=== PATIENT | female | born 1990 | race Caucasian/White ===

== ENCOUNTER → 2016-11-04 | Outpatient (CLI) | payer OTHER | LOC: MW.CHOBGYN 13:19 | PROVIDERS: ATTEND Nurse Practitioner Women's Health | DX: N94.89 Other specified conditions associated with female genital organs and menstrual cycle (principal); Z01.419 Encounter for gynecological examination (general) (routine) without abnormal findings; Z11.3 Encounter for screening for infections with a predominantly sexual mode of transmission | CPT/HCPCS: 36415; 86592; 87389; 87480; 87491; 87510; 87591; 87660; G0145 ==

== ENCOUNTER 2017-06-15 16:06 | Emergency (ER) | payer OTHER ==
--- NOTE | 2017-06-15 16:37 | EDM.PDOC ---
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 Patient does have a history of kidney stones and indicates it feels very similar to that. Patient denies any trauma or any injury there would precipitate this but indicates that she's become progressively uncomfortable the point that she cannot sleep or sit still. ] Review of systems: As per history of present illness and below otherwise all systems reviewed and negative. Past medical history: As per history of present illness and as reviewed below otherwise noncontributory. Surgical history: As per history of present illness and as reviewed below otherwise noncontributory. Social history: No reported history of drug or alcohol abuse. Family history: As per history of present illness and as reviewed below otherwise noncontributory. Physical exam: HEENT: Atraumatic, normocephalic, pupils reactive, negative for conjunctival pallor or scleral icterus, mucous membranes moist, throat clear, neck supple, nontender, trachea midline. Lungs: Clear to auscultation, breath sounds equal bilaterally, chest nontender. Heart: S1S2, regular, negative for clicks, rubs, or JVD. Abdomen: Soft, nondistended, nontender. Negative for masses or hepatosplenomegaly. Negative for costovertebral tenderness. Pelvis: Stable nontender. Genitourinary: Deferred. Rectal: Deferred. Extremities: Atraumatic, negative for cords or calf pain. Neurovascular unremarkable. Neuro: Awake, alert, oriented. Cranial nerves II through XII unremarkable. Cerebellum unremarkable. Motor and sensory unremarkable throughout. Exam nonfocal. UA was clean without any signs of bleeding were consistent for a UTI Diagnostics: [UA, x-ray of lumbar spine] Therapeutics: [] Impression: [Back pain] Plan: [Follow-up with PCP, Norflex] Definitive disposition and diagnosis as appropriate pending reevaluation and review of above. 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 History: Reports: None Musculoskeletal History: Reports: None Neurological History: Reports: Migraines Psychiatric History: Reports: Anxiety, Depression Endocrine/Metabolic History: Reports: None Hematologic History: Reports: None Immunologic History: Reports: None Oncologic (Cancer) History: Reports: None Dermatologic History: Reports: None - Infectious Disease History Infectious Disease History: Reports: Chicken Pox - Past Surgical History Head Surgeries/Procedures: Reports: None HEENT Surgical History: Reports: Tonsillectomy Cardiovascular Surgical History: Reports: None Respiratory Surgical History: Reports: None GI Surgical History: Reports: None Female Surgical History: Reports: Kidney stone extraction, Lithotripsy/ESWL Endocrine Surgical History: Reports: None Neurological Surgical History: Reports: C-Spine Musculoskeletal Surgical History: Reports: None Oncologic Surgical History: Reports: None Dermatological Surgical History: Reports: None Social & Family History - Family History Family Medical History: Noncontributory - Tobacco Use Smoking Status *Q: Current Every Day Smoker Years of Tobacco use: 10 Packs/Tins Daily: 0.2 - Caffeine Use Caffeine Use: Reports: Coffee Other Caffeine Use: 1-2 cups daily - Recreational Drug Use Recreational Drug Use: No ED ROS GENERAL - Review of Systems Review Of Systems: See Below (History of present illness) ED EXAM, GENERAL - Physical Exam Exam: See Below (See history of present illness) Course - Vital Signs Last Recorded V/S: Last Vital Signs Temp 36.5 C 06/15/17 16:24 Pulse 101 H 06/15/17 16:24 Resp 18 06/15/17 16:24 BP 165/103 H 06/15/17 16:24 Pulse Ox 99 06/15/17 16:24 - Orders/Labs/Meds Orders: Active Orders 24 hr Category Date Time Status Lumbar Spine 2 or 3V [CR] Stat Exams 06/15/17 17:00 Ordered Labs: Laboratory Tests 06/15/17 06/15/17 Range/Units 16:40 16:40 Urine Color YELLOW Urine Appearance CLEAR Urine pH 5.0 (5.0-8.0) Ur Specific [place] 1.010 (1.001-1.035) Urine Protein NEGATIVE (NEGATIVE) mg/dL Urine Glucose (UA) NEGATIVE (NEGATIVE) mg/dL Urine Ketones NEGATIVE (NEGATIVE) mg/dL Urine Occult Blood NEGATIVE (NEGATIVE) Urine Nitrite NEGATIVE (NEGATIVE) Urine Bilirubin NEGATIVE (NEGATIVE) Urine Urobilinogen 0.2 (<2.0) EU/dL Ur Leukocyte Esterase NEGATIVE (NEGATIVE) Urine RBC 0-1 (0-2/HPF) Urine WBC 0-1 (0-5/HPF) Ur Epithelial Cells FEW (NONE-FEW) Urine Bacteria FEW (NEGATIVE) Urine HCG, Qual NEGATIVE (NEGATIVE) Meds: Medications Discontinued Medications Generic Name Dose Route Start Last Admin Trade Name Lloyd PRN Reason Stop Dose Admin Ketorolac Tromethamine 60 mg 06/15/17 17:00 06/15/17 17:07 Toradol IM 06/15/17 17:01 60 mg ONETIME ONE Administration Departure - Departure Time of Disposition: 18:03 Disposition: Home, Self-Care 01 Condition: Good Clinical Impression: Back pain - Discharge Information Instructions: Back Pain, Adult, [id number] Referrals: Tianna Ellis ARCHITECTURAL SUPERINTENDENT [Primary Care Provider] - Forms: ED Department Discharge Additional Instructions: The following information is given to patients seen in the emergency department who are being discharged to home. This information is to outline your options for follow-up care. We provide all patients seen in our emergency department with a follow-up referral. The need for follow-up, as well as the timing and circumstances, are variable depending upon the specifics of your emergency department visit. If you don't have a primary care physician on staff, we will provide you with a referral. We always advise you to contact your personal physician following an emergency department visit to inform them of the circumstance of the visit and for follow-up with them and/or the need for any referrals to a consulting specialist. The emergency department will also refer you to a specialist when appropriate. This referral assures that you have the opportunity for follow-up care with a specialist. All of these measure are taken in an effort to provide you with optimal care, which includes your follow-up. Under all circumstances we always encourage you to contact your private physician who remains a resource for coordinating your care. When calling for follow-up care, please make the office aware that this follow-up is from your recent emergency room visit. If for any reason you are refused follow-up, please contact the [facility] Emergency Department at and asked to speak to the emergency department charge nurse. Take medication as directed All up with primary care provider as discussed Turn to ED as needed as discussed - My Orders Last 24 Hours: My Active Orders 06/15/17 17:00 Lumbar Spine 2 or 3V [CR] Stat - Assessment/Plan Last 24 Hours: My Active Orders 06/15/17 17:00 Lumbar Spine 2 or 3V [CR] Stat
[2017-06-15] MEDS ORDERED: Ketorolac 60 MG/2 ML SDV IM ONE (17:00)
[2017-06-15 18:36] VITALS: BP 124/87
--- NOTE | 2017-06-16 15:27 | CR ---
EXAM DATE: 06/15/17 PATIENT'S AGE: 26 Patient: LIAM BLEDSOE Facility: [place], [place] : 1990 Study: XRay Spine Lumbar [id number] 5:27:50 PM Ordering Physician: Doctor Hernandez Final Report: Indication: Back pain. Comparison: None available. Technique: Views of lumbar spine. Findings: There are 5 non rib-bearing lumbar type vertebral bodies. Alignment is normal. Vertebral body heights are well maintained. Mildly exaggerated lumbar lordotic curvature. There appears to be mild facet related degenerative change. SI joints are unremarkable. Impression: Vertebral body heights are well maintained and there is no listhesis. Dictated by Miguel Jacob MD @ Jun 15 2017 5:39PM (Electronic Signature) Report Signed by Proxy. GAIL
== END 2017-06-15 18:30 | disposition home or self-care (01) ==
LOC: MW.ED 16:06
DX: M54.5 Low back pain (principal); F17.210 Nicotine dependence, cigarettes, uncomplicated; Z79.899 Other long term (current) drug therapy; Z88.6 Allergy status to analgesic agent
CPT/HCPCS: 72100; 81001; 81025; 96372; 99283; J1885

== ENCOUNTER 2018-01-19 01:41 | Emergency (ER) | payer BC, OTHER ==
--- NOTE | 2018-01-19 01:53 | EDM.PDOC ---
ED HPI GENERAL MEDICAL PROBLEM - General Chief Complaint: Flank Pain Stated Complaint: LOWER BACK PAIN RIGHT SIDE Time Seen by Provider: 01/19/18 01:48 Source of Information: Reports: Patient History Limitations: Reports: No Limitations - History of Present Illness INITIAL COMMENTS - FREE TEXT/NARRATIVE: HISTORY AND PHYSICAL: History of present illness: 27-year-old 6 week female presenting emergency department with chief complaint of right flank pain starting at midnight tonight. Patient states that she was lying down in bed this evening when she began to have some right flank pain. She states it was sharp and lower right rib cage. She does have a history of back issues that she sees a chiropractor for and this may be its etiology however she does have a history of kidney stones as well. Last kidney stone over 2 years ago. She denies any hematuria, fever, chills, dysuria. 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 hopper. She currently denies any chest pain, palpitations, shortness of breath, syncopal episodes, focal neurologic episodes. Review of systems: As per history of present illness and below otherwise all systems reviewed and negative. Past medical history: As per history of present illness and as reviewed below otherwise noncontributory. Surgical history: As per history of present illness and as reviewed below otherwise noncontributory. Social history: No reported history of drug or alcohol abuse. Family history: As per history of present illness and as reviewed below otherwise noncontributory. Physical exam: HEENT: Atraumatic, normocephalic, pupils reactive, negative for conjunctival pallor or scleral icterus, mucous membranes moist, throat clear, neck supple, nontender, trachea midline. Lungs: Clear to auscultation, breath sounds equal bilaterally, chest nontender. Heart: S1S2, regular, negative for clicks, rubs, or JVD. Abdomen: Soft, nondistended, nontender. Negative for masses or hepatosplenomegaly. Negative for costovertebral tenderness. Pelvis: Stable nontender. Genitourinary: Deferred. Rectal: Deferred. Extremities: Atraumatic, negative for cords or calf pain. Neurovascular unremarkable. Neuro: Awake, alert, oriented. Cranial nerves II through XII unremarkable. Cerebellum unremarkable. Motor and sensory unremarkable throughout. Exam nonfocal. Diagnostics: CBC, CMP, UA/UC Therapeutics: [] Impression: Musculoskeletal strain Back pain Plan: CBC, CMP, and UA were unremarkable. Given the patient's history of back pain this is the most likely source. However, I did talk to her about making sure she watches very closely for any increasing symptoms as she has had a stone before. I did not see any hematuria or microscopic blood in her urine. It was negative for infection as well. I instructed her follow-up with her primary care provider Dr. White and return to emergency department if she had any new or worsening symptoms. Agent can take Tylenol as needed for pain. She can also use ice or heat. She was instructed to watch for any fever, chills, dysuria, hematuria, or other signs of systemic infection. 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 Musculoskeletal History: Reports: None Neurological History: Reports: Migraines Psychiatric History: Reports: Anxiety, Depression Endocrine/Metabolic History: Reports: None Hematologic History: Reports: None Immunologic History: Reports: None Oncologic (Cancer) History: Reports: None Dermatologic History: Reports: None - Infectious Disease History Infectious Disease History: Reports: Chicken Pox - Past Surgical History Head Surgeries/Procedures: Reports: None HEENT Surgical History: Reports: Tonsillectomy Cardiovascular Surgical History: Reports: None Respiratory Surgical History: Reports: None GI Surgical History: Reports: None Female Surgical History: Reports: Kidney stone extraction, Lithotripsy/ESWL Endocrine Surgical History: Reports: None Neurological Surgical History: Reports: C-Spine Musculoskeletal Surgical History: Reports: None Oncologic Surgical History: Reports: None Dermatological Surgical History: Reports: None Social & Family History - Family History Family Medical History: Noncontributory - Caffeine Use Caffeine Use: Reports: Coffee Other Caffeine Use: 1-2 cups daily ED ROS GENERAL - Review of Systems Review Of Systems: ROS reveals no pertinent complaints other than HPI. ED EXAM, GENERAL - Physical Exam Exam: See Below Course - Vital Signs Last Recorded V/S: Last Vital Signs Temp 98.6 F 01/19/18 02:00 Pulse 76 01/19/18 02:00 Resp 18 01/19/18 02:00 BP 112/79 01/19/18 02:00 Pulse Ox 100 01/19/18 02:00 - Orders/Labs/Meds Orders: Active Orders 24 hr Category Date Time Status CULTURE URINE [RM] Stat Lab 01/19/18 02:03 Received HCG QUALITATIVE,URINE [URCHEM] Stat Lab 01/19/18 02:03 Ordered Labs: Laboratory Tests 01/19/18 01/19/18 01/19/18 Range/Units 02:03 02:03 02:48 WBC 11.19 H (4.0-11.0) K/uL RBC 4.44 (4.30-5.90) M/uL Hgb 13.5 (12.0-16.0) g/dL Hct 39.2 (36.0-46.0) % MCV 88.3 (80.0-98.0) fL MCH 30.4 (27.0-32.0) pg MCHC 34.4 (31.0-37.0) g/dL RDW Std Deviation 39.7 (28.0-62.0) fl RDW Coeff of Talya 12 (11.0-15.0) % Plt Count 333 (150-400) K/uL MPV 9.40 (7.40-12.00) fL Neut % (Auto) 60.7 (48.0-80.0) % Lymph % (Auto) 30.6 (16.0-40.0) % Jennings % (Auto) 8.0 (0.0-15.0) % Eos % (Auto) 0.5 (0.0-7.0) % Baso % (Auto) 0.2 (0.0-1.5) % Neut # (Auto) 6.8 H (1.4-5.7) K/uL Lymph # (Auto) 3.4 H (0.6-2.4) K/uL Jennings # (Auto) 0.9 H (0.0-0.8) K/uL Eos # (Auto) 0.1 (0.0-0.7) K/uL Baso # (Auto) 0.0 (0.0-0.1) K/uL Nucleated RBC % 0.0 /100WBC Nucleated RBCs # 0 K/uL Sodium (136-145) mmol/L Potassium (3.5-5.1) mmol/L Chloride (98-107) mmol/L Carbon Dioxide (21.0-32.0) mmol/L BUN (7.0-18.0) mg/dL Creatinine (0.6-1.0) mg/dL Est Cr Clr Drug Dosing Estimated GFR (MDRD) ml/min Glucose (74-106) mg/dL Calcium (8.5-10.1) mg/dL Total Bilirubin (0.2-1.0) mg/dL AST (15-37) IU/L ALT (14-63) IU/L Alkaline Phosphatase (46-116) U/L Total Protein (6.4-8.2) g/dL Albumin (3.4-5.0) g/dL Globulin (2.0-3.5) g/dL Albumin/Globulin Ratio (1.3-2.8) Urine Color YELLOW Urine Appearance HAZY Urine pH 5.5 (5.0-8.0) Ur Specific [place] >= 1.030 (1.001-1.035) Urine Protein NEGATIVE (NEGATIVE) mg/dL Urine Glucose (UA) NEGATIVE (NEGATIVE) mg/dL Urine Ketones TRACE H (NEGATIVE) mg/dL Urine Occult Blood NEGATIVE (NEGATIVE) Urine Nitrite NEGATIVE (NEGATIVE) Urine Bilirubin NEGATIVE (NEGATIVE) Urine Urobilinogen 0.2 (<2.0) EU/dL Ur Leukocyte Esterase NEGATIVE (NEGATIVE) Urine RBC 1-2 (0-2/HPF) Urine WBC 4-6 (0-5/HPF) Ur Epithelial Cells MANY (NONE-FEW) Urine Bacteria 2+ H (NEGATIVE) Urine HCG, Qual POSITIVE (NEGATIVE) 01/19/18 Range/Units 02:48 WBC (4.0-11.0) K/uL RBC (4.30-5.90) M/uL Hgb (12.0-16.0) g/dL Hct (36.0-46.0) % MCV (80.0-98.0) fL MCH (27.0-32.0) pg MCHC (31.0-37.0) g/dL RDW Std Deviation (28.0-62.0) fl RDW Coeff of Talya (11.0-15.0) % Plt Count (150-400) K/uL MPV (7.40-12.00) fL Neut % (Auto) (48.0-80.0) % Lymph % (Auto) (16.0-40.0) % [place] % (Auto) (0.0-15.0) % Eos % (Auto) (0.0-7.0) % Baso % (Auto) (0.0-1.5) % Neut # (Auto) (1.4-5.7) K/uL Lymph # (Auto) (0.6-2.4) K/uL Jennings # (Auto) (0.0-0.8) K/uL Eos # (Auto) (0.0-0.7) K/uL Baso # (Auto) (0.0-0.1) K/uL Nucleated RBC % /100WBC Nucleated RBCs # K/uL Sodium 137 (136-145) mmol/L Potassium 3.8 (3.5-5.1) mmol/L Chloride 104 (98-107) mmol/L Carbon Dioxide 23.8 (21.0-32.0) mmol/L BUN 11 (7.0-18.0) mg/dL Creatinine 0.8 (0.6-1.0) mg/dL Est Cr Clr Drug Dosing TNP Estimated GFR (MDRD) > 60.0 ml/min Glucose 91 (74-106) mg/dL Calcium 9.2 (8.5-10.1) mg/dL Total Bilirubin 0.6 (0.2-1.0) mg/dL AST 13 L (15-37) IU/L ALT 34 (14-63) IU/L Alkaline Phosphatase 42 L (46-116) U/L Total Protein 6.5 (6.4-8.2) g/dL Albumin 3.7 (3.4-5.0) g/dL Globulin 2.8 (2.0-3.5) g/dL Albumin/Globulin Ratio 1.3 (1.3-2.8) Urine Color Urine Appearance Urine pH (5.0-8.0) Ur Specific [place] (1.001-1.035) Urine Protein (NEGATIVE) mg/dL Urine Glucose (UA) (NEGATIVE) mg/dL Urine Ketones (NEGATIVE) mg/dL Urine Occult Blood (NEGATIVE) Urine Nitrite (NEGATIVE) Urine Bilirubin (NEGATIVE) Urine Urobilinogen (<2.0) EU/dL Ur Leukocyte Esterase (NEGATIVE) Urine RBC (0-2/HPF) Urine WBC (0-5/HPF) Ur Epithelial Cells (NONE-FEW) Urine Bacteria (NEGATIVE) Urine HCG, Qual (NEGATIVE) Departure - Departure Time of Disposition: 03:16 Disposition: Home, Self-Care 01 Condition: Good Clinical Impression: Back pain affecting in first trimester - Discharge Information Referrals: Tianna Ellis PIANO MAKER [Primary Care Provider] - Forms: ED Department Discharge Additional Instructions: My general discharge The following information is given to patients seen in the emergency department who are being discharged to home. This information is to outline your options for follow-up care. We provide all patients seen in our emergency department with a follow-up referral. The need for follow-up, as well as the timing and circumstances, are variable depending upon the specifics of your emergency department visit. If you don't have a primary care physician on staff, we will provide you with a referral. We always advise you to contact your personal physician following an emergency department visit to inform them of the circumstance of the visit and for follow-up with them and/or the need for any referrals to a consulting specialist. The emergency department will also refer you to a specialist when appropriate. This referral assures that you have the opportunity for follow-up care with a specialist. All of these measure are taken in an effort to provide you with optimal care, which includes your follow-up. Under all circumstances we always encourage you to contact your private physician who remains a resource for coordinating your care. When calling for follow-up care, please make the office aware that this follow-up is from your recent emergency room visit. If for any reason you are refused follow-up, please contact the [facility] Emergency Department at and asked to speak to the emergency department charge nurse. [facility] [address] [place] [id number] [facility] [address] [place] [address] [facility] [address], [place] [address] Follow-up with your primary care provider. May take Tylenol as needed for pain. Return emergency department if you have any new or worsening symptoms including but not limited to fever, chills, nausea, vomiting, hematuria, dysuria, increasing pain. - My Orders Last 24 Hours: My Active Orders 01/19/18 02:03 CULTURE URINE [RM] Stat HCG QUALITATIVE,URINE [URCHEM] Stat - Assessment/Plan Last 24 Hours: My Active Orders 01/19/18 02:03 CULTURE URINE [RM] Stat HCG QUALITATIVE,URINE [URCHEM] Stat
[2018-01-19 03:11] LABS: CHLORIDE,CL 104 mmol/L (98-107); SODIUM,NA 137 mmol/L (136-145)
[2018-01-19 03:21] VITALS: BP 117/64
== END 2018-01-19 03:25 | disposition home or self-care (01) ==
LOC: MW.ED 01:41
DX: O99.89 Other specified diseases and conditions complicating pregnancy, childbirth and the puerperium (principal); S29.011A Strain of muscle and tendon of front wall of thorax, initial encounter; M54.9 Dorsalgia, unspecified; O99.341 Other mental disorders complicating pregnancy, first trimester; F32.9 Major depressive disorder, single episode, unspecified; Z3A.01 Less than 8 weeks gestation of pregnancy; Z88.6 Allergy status to analgesic agent; Z79.899 Other long term (current) drug therapy; X58.XXXA Exposure to other specified factors, initial encounter
CPT/HCPCS: 36415; 80053; 81001; 81025; 85025; 87086; 99284

== ENCOUNTER 2018-09-01 01:50 | Inpatient (IN) | payer BC ==
[2018-09-01] MEDS ORDERED: Tranexamic Acid 1,000 MG in Sodium Chloride 0.9% 100 ML IV PRN (02:48)
[2018-09-01] MEDS ORDERED: Sodium Chloride 0.9% 2.5 ML Syringe FLUSH PRN (02:48)
[2018-09-01] MEDS ORDERED: Misoprostol 200 MCG Tab PO PRN (02:48)
[2018-09-01] MEDS ORDERED: Sodium Chloride 0.9% 10 ML Syringe FLUSH PRN (02:48)
[2018-09-01] MEDS ORDERED: Lidocaine 1% 50 ML MDV INJECT PRN (02:48)
[2018-09-01] MEDS ORDERED: Carboprost Tromethamine 250 MCG/1 ML Amp IM PRN (02:48)
[2018-09-01] MEDS ORDERED: Water For Irrigation,Sterile 1,000 ML Container IRR PRN (02:48)
[2018-09-01] MEDS ORDERED: Methylergonovine 0.2 MG/1 ML Amp IM PRN (02:48)
[2018-09-01] MEDS ORDERED: Nalbuphine 10 MG/1 ML Vial IVPUSH PRN ×2 (02:48→23:54)
[2018-09-01] MEDS ORDERED: Oxytocin/0.9 % Sodium Chloride 30 UNIT/500 ML BAG IV SCH ×2 (03:00→12:15)
[2018-09-01] MEDS: Butorphanol 1 MG/ML SDV IVPUSH PRN ×2 (06:29→07:57)
[2018-09-01] MEDS: Lactated Ringers 1,000 ML IV SCH ×3 (08:55→23:12)
[2018-09-01] MEDS ORDERED: fentaNYL 100 MCG/2 ML SDV ONE ×2 (09:05→19:13)
[2018-09-01] MEDS ORDERED: Ropivacaine 0.2% 2 MG/ML 20 ML SDV ONE (09:07)
[2018-09-01] MEDS ORDERED: Ropivacaine HCl/PF 100 ML ONE ×2 (09:07→19:14)
--- NOTE | 2018-09-01 11:16 | PCM.PREANE ---
Preanesthetic Assessment - Anesthesia/Transfusion/Family Hx Anesthesia History: Prior Anesthesia Without Reaction Family History of Anesthesia Reaction: No Transfusion History: No Prior Transfusion(s) - Review of Systems General: No Symptoms Pulmonary: No Symptoms Cardiovascular: No Symptoms Gastrointestinal: No Symptoms Neurological: No Symptoms Other: Reports: None (Denies any personal or family history of bleeding or clotting problems) - Physical Assessment Height: 1.57 m Weight: 101.151 kg ASA Class: 2 Mental Status: Alert & Oriented x3 Airway Class: Mallampati = 2 Dentition: Reports: Normal Dentition ROM/Head Extension: Full - Lab Values: Laboratory Last Values WBC 16.24 K/uL (4.0-11.0) H 09/01/18 03:03 RBC 4.06 M/uL (4.30-5.90) L 09/01/18 03:03 Hgb 11.9 g/dL (12.0-16.0) L 09/01/18 03:03 Hct 36.2 % (36.0-46.0) 09/01/18 03:03 MCV 89.2 fL (80.0-98.0) 09/01/18 03:03 MCH 29.3 pg (27.0-32.0) 09/01/18 03:03 MCHC 32.9 g/dL (31.0-37.0) 09/01/18 03:03 RDW Std Deviation 42.0 fl (28.0-62.0) 09/01/18 03:03 RDW Coeff of Talya 13 % (11.0-15.0) 09/01/18 03:03 Plt Count 336 K/uL (150-400) 09/01/18 03:03 MPV 10.30 fL (7.40-12.00) 09/01/18 03:03 Blood Type A NEGATIVE 09/01/18 03:03 Antibody Screen NEGATIVE 09/01/18 03:03 - Allergies Allergies/Adverse Reactions: Allergies Allergy/AdvReac Type Severity Reaction Status Date / Time aspirin Allergy Vomiting Verified 06/15/17 16:24 - Acknowledgements Anesthesia Type Planned: Epidural Pt an Appropriate Candidate for the Planned Anesthesia: Yes Alternatives and Risks of Anesthesia Discussed w Pt/Guardian: Yes Pt/Guardian Understands and Agrees with Anesthesia Plan: Yes PreAnesthesia Questionnaire HEENT History: Reports: Impaired Vision Cardiovascular History: Reports: None Respiratory History: Reports: Asthma Gastrointestinal History: Reports: None Genitourinary History: Reports: Renal Calculus HAND MIXER History: Reports: Musculoskeletal History: Reports: Back Pain, Chronic Neurological History: Reports: Migraines Psychiatric History: Reports: Anxiety, Depression, OCD, Panic Attack Endocrine/Metabolic History: Reports: None Hematologic History: Reports: None Immunologic History: Reports: None Oncologic (Cancer) History: Reports: None Dermatologic History: Reports: None - Infectious Disease History Infectious Disease History: Reports: Herpes - Past Surgical History Head Surgeries/Procedures: Reports: None HEENT Surgical History: Reports: Adenoidectomy, Myringotomy w Tube(s), Tonsillectomy Cardiovascular Surgical History: Reports: None Respiratory Surgical History: Reports: None GI Surgical History: Reports: None Female Surgical History: Reports: Kidney stone extraction, Lithotripsy/ESWL Endocrine Surgical History: Reports: None Neurological Surgical History: Reports: C-Spine Musculoskeletal Surgical History: Reports: None Oncologic Surgical History: Reports: None Dermatological Surgical History: Reports: None - SUBSTANCE USE Smoking Status *Q: Former Smoker Tobacco Use Within Last Twelve Months: Cigarettes Second Hand Smoke Exposure: No Recreational Drug Use History: No - HOME MEDS Home Medications: Home Meds Escitalopram [Lexapro] 20 mg PO DAILY 10/06/16 [History] Prazosin HCl [Prazosin] 2 mg PO BEDTIME 10/06/16 [History] - CURRENT (IN HOUSE) MEDS Current Meds: Current Medications Butorphanol Tartrate (Stadol) 1 mg IVPUSH Q1H PRN PRN Reason: Pain Last Admin: 09/01/18 07:57 Dose: 1 mg Carboprost Tromethamine (Hemabate Ds) 250 mcg IM ASDIRECTED PRN PRN Reason: Post Hemorrhage Tranexamic Acid 1,000 mg/ (Sodium Chloride) 110 mls @ 660 mls/hr IV ONETIME PRN PRN Reason: Bleeding Lactated Ringer's (Ringers, Lactated) 1,000 mls @ 150 mls/hr IV ASDIRECTED ORTEGA Oxytocin/Sodium Chloride (Oxytocin 30 Unit/500 Ml-Ns) 30 unit in 500 mls @ 999 mls/hr IV TITRATE ORTEGA Lidocaine HCl (Xylocaine 1%) 50 ml INJECT ONETIME PRN PRN Reason: Laceration repair Methylergonovine Maleate (Methergine) 0.2 mg IM ASDIRECTED PRN PRN Reason: Post Hemorrhage Misoprostol (Cytotec) 200 mcg PO ONETIME PRN PRN Reason: Post Hemorrhage Nalbuphine HCl (Nubain) 10 mg IVPUSH Q1H PRN PRN Reason: Pain (severe 7-10) Sodium Chloride (Saline Flush) 10 ml FLUSH ASDIRECTED PRN PRN Reason: Keep Vein Open Sodium Chloride (Saline Flush) 2.5 ml FLUSH ASDIRECTED PRN PRN Reason: Keep Vein Open Sterile Water (Sterile Water For Irrigation) 1,000 ml IRR ASDIRECTED PRN PRN Reason: delivery Discontinued Medications Fentanyl (Sublimaze) Confirm Administered Dose 300 mcg .ROUTE .STK-MED ONE Stop: 09/01/18 09:06 Ropivacaine (Naropin 0.2%) Confirm Administered Dose 100 mls @ as directed .ROUTE .STK-MED ONE Stop: 09/01/18 09:08 Ropivacaine (Naropin 0.2%) Confirm Administered Dose 20 ml .ROUTE .STK-MED ONE Stop: 09/01/18 09:08
[2018-09-01] MEDS ORDERED: Terbutaline 1 MG/ML SDV SUBCUT PRN (12:14)
[2018-09-01] MEDS ORDERED: Acetaminophen 500 MG Tab PO ONE ×2 (15:34→19:12)
[2018-09-01] MEDS ORDERED: Ondansetron 4 MG/2 ML SDV IVPUSH ONE (19:12)
[2018-09-01] MEDS ORDERED: hydrOXYzine Pamoate 25 MG Cap PO ONE (19:30)
[2018-09-01] MEDS ORDERED: Citric Acid/Sodium Citrate Solution 30 ML Cup PO ONE (20:51)
[2018-09-01] MEDS ORDERED: ceFAZolin 2 GM in Premix Bag 1 BAG IV ONE (22:57)
[2018-09-01] MEDS ORDERED: Azithromycin 500 MG in Sodium Chloride 0.9% 250 ML IV ONE (22:57)
--- NOTE | 2018-09-01 23:05 | PCM.SN ---
- Free Text/Narrative Note: 22:45 Called in to evaluate "air in line" message on epidural pump. On arrival , patient in lithotomy position pushing and has been pushing for a couple of hours. The epidural catheter was pulled out of the clip and laying in the bed so the epidural catheter was discontinued with the tip intact.
[2018-09-01] MEDS ORDERED: Morphine PF 10 MG/10 ML SDV ONE (23:10)
[2018-09-01] MEDS ORDERED: Phenylephrine/Normal Saline 100 MCG/ML 10 ML Syringe ONE (23:12)
[2018-09-01] MEDS ORDERED: Oxytocin 10 Units/1 ML SDV ONE ×2 (23:12→23:53)
[2018-09-01] MEDS ORDERED: ceFAZolin/Dextrose,Iso-Osmotic 2 GM/50 ML Duplex Bag IV ONE (23:26)
[2018-09-01] MEDS ORDERED: Ondansetron 4 MG/2 ML SDV ONE (23:53)
[2018-09-01] MEDS ORDERED: fentaNYL 100 MCG/2 ML SDV IVPUSH PRN (23:54)
[2018-09-01] MEDS ORDERED: HYDROmorphone 2 MG/ML SDV IVPUSH ONE (23:54)
[2018-09-02] MEDS ORDERED: Midazolam 1 MG/ML 2 ML SDV ONE (00:11)
[2018-09-02] MEDS ORDERED: Octyl 2-Cyanoacrylate 1 Tube ONE (00:14)
--- NOTE | 2018-09-02 00:32 | PCM.OPNOTE ---
- General Post-Op/Procedure Note Date of Surgery/Procedure: 09/02/18 Operative Procedure(s): primary low transverse Findings: Liveborn male 8/9 weight 3950 grams, LOT Normal appearing uterus, tubes and ovaries. Pre Op Diagnosis: 38 5/7 weeks, labor, arrest of descent. Post-Op Diagnosis: Same Anesthesia Technique: Spinal Primary Surgeon: Venus Arellano Anesthesia Provider: Thierry Vigil Hvac Controls Technician: Blanche Babcock Pathology: none Fluid Replacement, Intraop: 700 EBL in mLs: 600 Complications: None known Condition: Good
[2018-09-02] MEDS ORDERED: Temazepam 15 MG Cap PO PRN (00:34)
[2018-09-02] MEDS ORDERED: Bisacodyl 10 MG Supp RECTAL PRN (00:34)
[2018-09-02] MEDS ORDERED: Acetaminophen/oxyCODONE 325-5 MG Tab PO PRN ×2 (00:34)
[2018-09-02] MEDS ORDERED: Lanolin 100% Cream 7 GM Tube TOP PRN (00:34)
[2018-09-02] MEDS ORDERED: Ondansetron 4 MG/2 ML SDV IVPUSH PRN (00:34)
[2018-09-02] MEDS ORDERED: diphenhydrAMINE 50 MG/ML SDV IVPUSH PRN (00:34)
[2018-09-02] MEDS ORDERED: Famotidine 20 MG Tab PO PRN (00:34)
[2018-09-02] MEDS ORDERED: Misoprostol 200 MCG Tab RECTAL PRN (00:34)
[2018-09-02] MEDS ORDERED: Simethicone 80 MG Tab.Chew PO PRN (00:34)
[2018-09-02] MEDS ORDERED: Lactated Ringers 1,000 ML IV SCH (00:45)
[2018-09-02] MEDS: Ketorolac 30 MG/ML SDV IVPUSH SCH ×4 (00:53→18:39)
--- NOTE | 2018-09-02 01:02 | PCM48HPAN ---
Post Anesthesia Note - EVALUATION WITHIN 48HRS OF ANESTHETIC Vital Signs in Normal Range: Yes Patient Participated in Evaluation: Yes Respiratory Function Stable: Yes Airway Patent: Yes Cardiovascular Function Stable: Yes Hydration Status Stable: Yes Pain Control Satisfactory: Yes Nausea and Vomiting Control Satisfactory: Yes Mental Status Recovered: Yes Resp Rate: 21
--- NOTE | 2018-09-02 06:34 | OR ---
SURGEON: Venus Arellano M.D. DATE OF PROCEDURE: 09/02/2018 PREOPERATIVE DIAGNOSES: 1. A 38 and 5/7 weeks' intrauterine . 2. Active labor. 3. Arrest of descent. POSTOPERATIVE DIAGNOSES: 1. A 38 and 5/7 weeks' intrauterine . 2. Active labor. 3. Arrest of descent. PROCEDURE: Primary low-transverse section. ANESTHESIA: Spinal. FLUIDS: 700 mL crystalloid. ESTIMATED BLOOD LOSS: 600 mL. FINDINGS: Liveborn male. scores 8 and 9, weighing 3950 g. Left occiput transverse position. Normal-appearing uterus, tubes, and ovaries. COMPLICATIONS: None known. DISPOSITION: Stable to recovery. BRIEF HISTORY: This is a 27-year-old female. She is G1, P0. She presents in active spontaneous labor, 38 and 5/7 weeks' gestation, 3 cm, 90%, -2 station. Artificial rupture of membranes was performed. She does have a history of HSV. She had a negative white light exam and also is on Valtrex in the third trimester. She is known to be large for gestational age with estimated weight of 3900 g. She is group B strep negative. Throughout labor, she had primarily category I heart tones with brief episodes of marked variability and occasional decelerations. She required augmentation with Pitocin. She progressed to complete. She pushed for 3 hours. When she began pushing, she was at +1 station with caput, and after 3 hours of pushing, she was still at +1 station, left occiput transverse position with caput. I gave her option of further pushing as heart tones were normal and she was afebrile versus proceeding with . I did not recommend proceeding with a vacuum due to suspected macrosomia. After discussing risks and benefits of each, she desires to proceed with a primary low transverse section with risks discussed including bleeding, infection, injury to bowel, bladder, blood vessels, ureters, or other organs, risk of thromboembolic event, risk of anesthesia. Understanding all these risks, she does desire to proceed. DESCRIPTION OF PROCEDURE: With the patient in left tilt position, under adequate spinal analgesia, the abdomen was prepped with chlorhexidine and draped in the usual fashion for abdominal surgery. SCDs were in place. Chand catheter had been placed, and she received 500 mg of azithromycin and 2 g of Ancef IV. After documentation of adequate analgesia with the abdomen appropriately draped after an appropriate time-out was held, a transverse curvilinear incision was made 2 cm cephalad from the pubic symphysis and carried through the subcutaneous tissue to the fascia which was scored transversely in the midline. The fascial incision was extended laterally using curved Skaggs scissors. The fascia was elevated from the underlying rectus muscle using sharp and blunt dissection. The rectus muscles were bluntly in the midline. The peritoneum was entered with a finger, and the incision was extended using blunt dissection. The Nura O C- section retractor was placed. The visceroperitoneum over the lower uterine segment was incised. Transverse curvilinear incision was made with a scalpel over the lower uterine segment. The uterine incision was extended using cephalad and caudad pressure. The head was elevated from the pelvis and delivered via the uterine incision. The infant was DeLee suctioned as meconium was noted at the time of rupture of membranes in the morning and indeed there was meconium-stained amniotic fluid. Following suctioning, the 's shoulders and body were delivered. The cord was clamped x2 and cut, and the was handed to Dr. Phelps who was present at delivery. The was a liveborn male, scores 8 and 9, weighing 3950 g. Cord blood was collected for cord ABGs as well as routine cord blood sampling. The placenta was removed by manual extraction. Pitocin was initiated after delivery of the to assist with contraction of the uterus. The uterus was cleaned with a dry laparotomy tape. The uterine incision was closed with a running lock suture of 0 Polysorb. The apex of an inferior extension of the incision on the right side was incorporated into the closure, and an imbricating layer over the incision was performed. All using 0 Polysorb. The posterior cul-de-sac paracolic gutters were irrigated and cleaned. The uterine incision was inspected and was hemostatic. Therefore, the Nura O retractor was removed. A final inspection revealed complete hemostasis. The rectus muscle and peritoneum were loosely approximated in the midline using a running mattress suture of 0 Polysorb. The posterior aspect of the fascia was inspected and areas of bleeding that were noted were cauterized. The fascial incision was closed with a running suture of 0 Polysorb. Subcutaneous tissue was irrigated. Any areas of bleeding that were noted were cauterized. The deep subcutaneous tissue was reapproximated with a running suture of 3-0 plain. The skin was reapproximated with a running subcuticular suture of 3-0 Monocryl followed by Dermabond. After closure of the incision, a speculum was placed in the vagina due to the extension down toward the cervix to ensure that this has not had extended into the cervix or the vagina. Inspection and palpation revealed no active bleeding, and palpation revealed no extension onto the cervix. Final sponge, needle, and instrument counts were reported as correct. There were no known complications. The patient was transferred to recovery in good condition. FABIOLA / CHAZ /[id number]
[2018-09-02] MEDS: Docusate Sodium 100 MG Cap PO SCH (08:40)
--- NOTE | 2018-09-02 09:37 | PCM48HPAN ---
Post Anesthesia Note - EVALUATION WITHIN 48HRS OF ANESTHETIC Vital Signs in Normal Range: Yes Patient Participated in Evaluation: Yes Respiratory Function Stable: Yes Airway Patent: Yes Cardiovascular Function Stable: Yes Hydration Status Stable: Yes Pain Control Satisfactory: Yes Nausea and Vomiting Control Satisfactory: Yes Mental Status Recovered: Yes Resp Rate: 16 - COMMENTS/OBSERVATIONS Free Text/Narrative:: Denies any complaints at this time.
--- NOTE | 2018-09-02 09:38 | PCM.POSTAN ---
POST ANESTHESIA ASSESSMENT - MENTAL STATUS Mental Status: Alert, Oriented - RESPIRATORY Respiratory Status: Respiratory Rate WNL, Airway Patent, O2 Saturation Stable - CARDIOVASCULAR CV Status: Pulse Rate WNL, Blood Pressure Stable - GASTROINTESTINAL GI Status: No Symptoms - POST OP HYDRATION Hydration Status: Adequate & Stable
[2018-09-03] MEDS: Ketorolac 30 MG/ML SDV IVPUSH SCH (00:49)
--- NOTE | 2018-09-03 08:01 | PCM.PNPP ---
- General Info Date of Service: 09/03/18 Functional Status: Reports: Pain Controlled, Tolerating Diet, Ambulating, Urinating - Review of Systems General: Denies: Fever, Fatigue, Chills HEENT: Denies: Headaches Pulmonary: Denies: Shortness of Breath, Pleuritic Chest Pain Cardiovascular: Denies: Chest Pain, Palpitations, Dyspnea on Exertion Gastrointestinal: Denies: Abdominal Pain Genitourinary: Denies: Burning, Incontinence, Flank Pain Psychiatric: Denies: Depression, Mood Lability, Anxiety - General Info Date of Service: 09/03/18 - Patient Data Vital Signs - Most Recent: Last Vital Signs Temp 36.5 C 09/03/18 04:20 Pulse 87 09/03/18 04:20 Resp 15 09/03/18 04:20 BP 96/55 L 09/03/18 04:20 Pulse Ox 98 09/03/18 04:20 Weight - Most Recent: 223 lb I&O - Last 24 Hours: Intake & Output 09/02/18 09/03/18 09/03/18 22:59 06:59 14:59 Output Total 2400 Balance -2400 Lab Results - Last 24 Hours: Laboratory Results - last 24 hr 09/03/18 Range/Units 05:47 Hgb 8.7 L (12.0-16.0) g/dL Hct 27.1 L (36.0-46.0) % Med Orders - Current: Current Medications Bisacodyl (Dulcolax) 10 mg RECTAL ONETIME PRN PRN Reason: Constipation Diphenhydramine HCl (Benadryl) 25 mg IVPUSH Q6H PRN PRN Reason: Itching or Nausea Docusate Sodium (Colace) 100 mg PO BID [facility] Last Admin: 09/02/18 08:40 Dose: 100 mg Emollient Ointment (Lansinoh Hpa) 0 gm TOP ASDIRECTED PRN PRN Reason: Sore Nipples Famotidine (Pepcid) 20 mg PO BID PRN PRN Reason: Heartburn Lactated Ringer's (Ringers, Lactated) 1,000 mls @ 125 mls/hr IV ASDIRECTED [facility] Last Admin: 09/02/18 02:43 Dose: 125 mls/hr Ibuprofen (Motrin) 800 mg PO Q8H PRN PRN Reason: mild pain or fever Misoprostol (Cytotec) 1,000 mcg RECTAL ONETIME PRN PRN Reason: excessive bleeding Nalbuphine HCl (Nubain) 10 mg IVPUSH Q1H PRN PRN Reason: Pain (severe 7-10) Ondansetron HCl (Zofran) 4 mg IVPUSH Q4H PRN PRN Reason: Nausea/Vomiting Oxycodone/Acetaminophen (Percocet 325-5 Mg) 1 tab PO Q4H PRN PRN Reason: Pain (moderate 4-6) Oxycodone/Acetaminophen (Percocet 325-5 Mg) 2 tab PO Q4H PRN PRN Reason: Pain (moderate 4-6) Simethicone (Simethicone) 80 mg PO Q4H PRN PRN Reason: Gas Temazepam (Restoril) 15 mg PO BEDTIME PRN PRN Reason: Insomnia Discontinued Medications Acetaminophen (Tylenol Extra Strength) 1,000 mg PO ONETIME ONE Stop: 09/01/18 15:35 Last Admin: 09/01/18 15:57 Dose: 1,000 mg Acetaminophen (Tylenol Extra Strength) 1,000 mg PO ONETIME ONE Stop: 09/02/18 00:32 Last Admin: 09/02/18 07:21 Dose: Not Given Butorphanol Tartrate (Stadol) 1 mg IVPUSH Q1H PRN PRN Reason: Pain Last Admin: 09/01/18 07:57 Dose: 1 mg Carboprost Tromethamine (Hemabate Ds) 250 mcg IM ASDIRECTED PRN PRN Reason: Post Hemorrhage Cefazolin Sodium/Dextrose (Ancef) Confirm Administered Dose 2 gm IV .STK-MED ONE Stop: 09/01/18 23:27 Citric Acid/Sodium Citrate (Bicitra Solution) 30 ml PO ONETIME ONE Stop: 09/01/18 20:52 Last Admin: 09/01/18 21:01 Dose: 30 ml Fentanyl (Sublimaze) Confirm Administered Dose 300 mcg .ROUTE .STK-MED ONE Stop: 09/01/18 09:06 Last Admin: 09/02/18 07:20 Dose: Not Given Fentanyl (Sublimaze) Confirm Administered Dose 200 mcg .ROUTE .STK-MED ONE Stop: 09/01/18 19:14 Last Admin: 09/02/18 07:21 Dose: Not Given Fentanyl (Sublimaze) 50 mcg IVPUSH Q5M PRN PRN Reason: Pain (severe 7-10) Stop: 09/02/18 23:54 Hydromorphone HCl (Dilaudid) 2 mg IVPUSH ONETIME ONE Stop: 09/01/18 23:55 Last Admin: 09/02/18 07:21 Dose: Not Given Hydroxyzine Pamoate (Vistaril) 25 mg PO ONETIME ONE Stop: 09/01/18 19:31 Last Admin: 09/01/18 19:38 Dose: 25 mg Tranexamic Acid 1,000 mg/ (Sodium Chloride) 110 mls @ 660 mls/hr IV ONETIME PRN PRN Reason: Bleeding Lactated Ringer's (Ringers, Lactated) 1,000 mls @ 150 mls/hr IV ASDIRECTED [facility] Last Admin: 09/01/18 23:12 Dose: 999 mls/hr Oxytocin/Sodium Chloride (Oxytocin 30 Unit/500 Ml-Ns) 30 unit in 500 mls @ 999 mls/hr IV TITRATE ORTEGA Ropivacaine (Naropin 0.2%) Confirm Administered Dose 100 mls @ as directed .ROUTE .STK-MED ONE Stop: 09/01/18 09:08 Last Admin: 09/02/18 07:20 Dose: Not Given Oxytocin/Sodium Chloride (Oxytocin 30 Unit/500 Ml-Ns) 30 unit in 500 mls @ 2 mls/hr IV TITRATE ORTEGA; Protocol Last Titration: 09/01/18 22:49 Dose: 0 munits/min, 0 mls/hr Ropivacaine (Naropin 0.2%) Confirm Administered Dose 100 mls @ as directed .ROUTE .STK-MED ONE Stop: 09/01/18 19:15 Last Admin: 09/02/18 07:21 Dose: Not Given Azithromycin 500 mg/ Sodium (Chloride) 250 mls @ 250 mls/hr IV ONETIME ONE Stop: 09/01/18 23:56 Last Admin: 09/01/18 23:10 Dose: 250 mls/hr Cefazolin Sodium/Dextrose 2 gm (/ Premix) 50 mls @ 100 mls/hr IV ONETIME ONE Stop: 09/01/18 23:26 Ketorolac Tromethamine (Toradol) 30 mg IVPUSH Q6H [facility] Stop: 09/03/18 00:46 Last Admin: 09/03/18 00:49 Dose: 30 mg Lidocaine HCl (Xylocaine 1%) 50 ml INJECT ONETIME PRN PRN Reason: Laceration repair Methylergonovine Maleate (Methergine) 0.2 mg IM ASDIRECTED PRN PRN Reason: Post Hemorrhage Midazolam HCl (Versed 1 Mg/Ml) Confirm Administered Dose 2 mg .ROUTE .STK-MED ONE Stop: 09/02/18 00:12 Misoprostol (Cytotec) 200 mcg PO ONETIME PRN PRN Reason: Post Hemorrhage Morphine Sulfate (Duramorph Pf) Confirm Administered Dose 10 mg .ROUTE .STK-MED ONE Stop: 09/01/18 23:11 Nalbuphine HCl (Nubain) 2.5 mg IVPUSH Q3H PRN PRN Reason: Pruritis Stop: 09/02/18 23:55 Octyl Cyanoacrylate (Dermabond Advance) Confirm Administered Dose 1 applic .ROUTE .ST-MED ONE Stop: 09/02/18 00:15 Ondansetron HCl (Zofran) 4 mg IVPUSH ONETIME ONE Stop: 09/01/18 19:13 Last Admin: 09/01/18 19:22 Dose: 4 mg Ondansetron HCl (Zofran) Confirm Administered Dose 4 mg .ROUTE .STK-MED ONE Stop: 09/01/18 23:54 Oxytocin (Pitocin) Confirm Administered Dose 20 unit .ROUTE .STK-MED ONE Stop: 09/01/18 23:13 Oxytocin (Pitocin) Confirm Administered Dose 10 unit .ROUTE .STK-MED ONE Stop: 09/01/18 23:54 Phenylephrine HCl (Phenylephrine In Ns 100 Mcg/Ml) Confirm Administered Dose 1 mg .ROUTE .STK-MED ONE Stop: 09/01/18 23:13 Ropivacaine (Naropin 0.2%) Confirm Administered Dose 20 ml .ROUTE .STK-MED ONE Stop: 09/01/18 09:08 Last Admin: 09/02/18 07:20 Dose: Not Given Sodium Chloride (Saline Flush) 10 ml FLUSH ASDIRECTED PRN PRN Reason: Keep Vein Open Sodium Chloride (Saline Flush) 2.5 ml FLUSH ASDIRECTED PRN PRN Reason: Keep Vein Open Sterile Water (Sterile Water For Irrigation) 1,000 ml IRR ASDIRECTED PRN PRN Reason: delivery Terbutaline Sulfate (Brethine) 0.25 mg SUBCUT ASDIRECTED PRN PRN Reason: Tacysystole - Interaction Infant Disposition, : Central in Room with Family Infant Interaction: Holding Infant Feeding: Attempted ; Nursed Fair/Poor, Continues to Breastfeed Support Person: Other (see below) - Recovery Exam Fundal Tone: Firm Fundal Level: 1 Fingerbreadths Below Umbilicus Fundal Placement: Midline Lochia Amount: Scant Lochia Color: Rubra/Red Perineum Description: Intact, Minimal Bruising/Swelling Bladder Status: Voiding Urinary Elimination: Voided - Exam General: Alert, Oriented Neck: Supple Lungs: Clear to Auscultation, Normal Respiratory Effort Cardiovascular: Regular Rate, Regular Rhythm GI/Abdominal Exam: Normal Bowel Sounds Extremities: Non-Tender, Pedal Edema Skin: Warm Wound/Incisions: Healing Well Psy/Mental Status: Alert, Normal Affect, Normal Mood - Problem List & Annotations (1) delivery delivered SNOMED Code(s): 921118757 Code(s): O82 - ENCOUNTER FOR DELIVERY WITHOUT INDICATION Status: Acute Current Visit: Yes - Problem List Review Problem List Initiated/Reviewed/Updated: Yes - Assessment Assessment:: POD#1 s/p Primary for arrest of descent, stable and afebrile Struggling with breast feeding - Plan Plan:: Continue current care Continue to work on breast feeding and aim on discharge tomorrow
[2018-09-03] MEDS: Docusate Sodium 100 MG Cap PO SCH ×3 (08:09→22:23)
[2018-09-03] MEDS: Ibuprofen 800 MG Tab PO PRN ×2 (09:59→19:51)
[2018-09-04 07:47] VITALS: BP 135/66
--- NOTE | 2018-09-04 07:53 | PCM.PNPP ---
- General Info Date of Service: 09/04/18 Functional Status: Reports: Pain Controlled, Tolerating Diet, Ambulating, Urinating - Review of Systems General: Reports: No Symptoms HEENT: Reports: No Symptoms Pulmonary: Reports: No Symptoms Cardiovascular: Reports: No Symptoms Gastrointestinal: Reports: No Symptoms Genitourinary: Reports: No Symptoms Musculoskeletal: Reports: No Symptoms Skin: Reports: No Symptoms Neurological: Reports: No Symptoms Psychiatric: Reports: No Symptoms - Patient Data Vital Signs - Most Recent: Last Vital Signs Temp 36.8 C 09/04/18 07:20 Pulse 82 09/04/18 07:20 Resp 17 09/04/18 07:20 BP 135/66 09/04/18 07:20 Pulse Ox 97 09/04/18 07:20 Weight - Most Recent: 101.151 kg Med Orders - Current: Current Medications Bisacodyl (Dulcolax) 10 mg RECTAL ONETIME PRN PRN Reason: Constipation Diphenhydramine HCl (Benadryl) 25 mg IVPUSH Q6H PRN PRN Reason: Itching or Nausea Docusate Sodium (Colace) 100 mg PO BID [facility] Last Admin: 09/03/18 22:23 Dose: Not Given Emollient Ointment (Lansinoh Hpa) 0 gm TOP ASDIRECTED PRN PRN Reason: Sore Nipples Famotidine (Pepcid) 20 mg PO BID PRN PRN Reason: Heartburn Lactated Ringer's (Ringers, Lactated) 1,000 mls @ 125 mls/hr IV ASDIRECTED [facility] Last Admin: 09/02/18 02:43 Dose: 125 mls/hr Ibuprofen (Motrin) 800 mg PO Q8H PRN PRN Reason: mild pain or fever Last Admin: 09/03/18 19:51 Dose: 800 mg Misoprostol (Cytotec) 1,000 mcg RECTAL ONETIME PRN PRN Reason: excessive bleeding Nalbuphine HCl (Nubain) 10 mg IVPUSH Q1H PRN PRN Reason: Pain (severe 7-10) Ondansetron HCl (Zofran) 4 mg IVPUSH Q4H PRN PRN Reason: Nausea/Vomiting Oxycodone/Acetaminophen (Percocet 325-5 Mg) 1 tab PO Q4H PRN PRN Reason: Pain (moderate 4-6) Oxycodone/Acetaminophen (Percocet 325-5 Mg) 2 tab PO Q4H PRN PRN Reason: Pain (moderate 4-6) Simethicone (Simethicone) 80 mg PO Q4H PRN PRN Reason: Gas Temazepam (Restoril) 15 mg PO BEDTIME PRN PRN Reason: Insomnia Discontinued Medications Acetaminophen (Tylenol Extra Strength) 1,000 mg PO ONETIME ONE Stop: 09/01/18 15:35 Last Admin: 09/01/18 15:57 Dose: 1,000 mg Acetaminophen (Tylenol Extra Strength) 1,000 mg PO ONETIME ONE Stop: 09/02/18 00:32 Last Admin: 09/02/18 07:21 Dose: Not Given Butorphanol Tartrate (Stadol) 1 mg IVPUSH Q1H PRN PRN Reason: Pain Last Admin: 09/01/18 07:57 Dose: 1 mg Carboprost Tromethamine (Hemabate Ds) 250 mcg IM ASDIRECTED PRN PRN Reason: Post Hemorrhage Cefazolin Sodium/Dextrose (Ancef) Confirm Administered Dose 2 gm IV .STK-MED ONE Stop: 09/01/18 23:27 Citric Acid/Sodium Citrate (Bicitra Solution) 30 ml PO ONETIME ONE Stop: 09/01/18 20:52 Last Admin: 09/01/18 21:01 Dose: 30 ml Fentanyl (Sublimaze) Confirm Administered Dose 300 mcg .ROUTE .STK-MED ONE Stop: 09/01/18 09:06 Last Admin: 09/02/18 07:20 Dose: Not Given Fentanyl (Sublimaze) Confirm Administered Dose 200 mcg .ROUTE .STK-MED ONE Stop: 09/01/18 19:14 Last Admin: 09/02/18 07:21 Dose: Not Given Fentanyl (Sublimaze) 50 mcg IVPUSH Q5M PRN PRN Reason: Pain (severe 7-10) Stop: 09/02/18 23:54 Hydromorphone HCl (Dilaudid) 2 mg IVPUSH ONETIME ONE Stop: 09/01/18 23:55 Last Admin: 09/02/18 07:21 Dose: Not Given Hydroxyzine Pamoate (Vistaril) 25 mg PO ONETIME ONE Stop: 09/01/18 19:31 Last Admin: 09/01/18 19:38 Dose: 25 mg Tranexamic Acid 1,000 mg/ (Sodium Chloride) 110 mls @ 660 mls/hr IV ONETIME PRN PRN Reason: Bleeding Lactated Ringer's (Ringers, Lactated) 1,000 mls @ 150 mls/hr IV ASDIRECTED [facility] Last Admin: 09/01/18 23:12 Dose: 999 mls/hr Oxytocin/Sodium Chloride (Oxytocin 30 Unit/500 Ml-Ns) 30 unit in 500 mls @ 999 mls/hr IV TITRATE [facility] Ropivacaine (Naropin 0.2%) Confirm Administered Dose 100 mls @ as directed .ROUTE .STK-MED ONE Stop: 09/01/18 09:08 Last Admin: 09/02/18 07:20 Dose: Not Given Oxytocin/Sodium Chloride (Oxytocin 30 Unit/500 Ml-Ns) 30 unit in 500 mls @ 2 mls/hr IV TITRATE [facility]; Protocol Last Titration: 09/01/18 22:49 Dose: 0 munits/min, 0 mls/hr Ropivacaine (Naropin 0.2%) Confirm Administered Dose 100 mls @ as directed .ROUTE .STK-MED ONE Stop: 09/01/18 19:15 Last Admin: 09/02/18 07:21 Dose: Not Given Azithromycin 500 mg/ Sodium (Chloride) 250 mls @ 250 mls/hr IV ONETIME ONE Stop: 09/01/18 23:56 Last Admin: 09/01/18 23:10 Dose: 250 mls/hr Cefazolin Sodium/Dextrose 2 gm (/ Premix) 50 mls @ 100 mls/hr IV ONETIME ONE Stop: 09/01/18 23:26 Ketorolac Tromethamine (Toradol) 30 mg IVPUSH Q6H [facility] Stop: 09/03/18 00:46 Last Admin: 09/03/18 00:49 Dose: 30 mg Lidocaine HCl (Xylocaine 1%) 50 ml INJECT ONETIME PRN PRN Reason: Laceration repair Methylergonovine Maleate (Methergine) 0.2 mg IM ASDIRECTED PRN PRN Reason: Post Hemorrhage Midazolam HCl (Versed 1 Mg/Ml) Confirm Administered Dose 2 mg .ROUTE .STK-MED ONE Stop: 09/02/18 00:12 Misoprostol (Cytotec) 200 mcg PO ONETIME PRN PRN Reason: Post Hemorrhage Morphine Sulfate (Duramorph Pf) Confirm Administered Dose 10 mg .ROUTE .STK-MED ONE Stop: 09/01/18 23:11 Nalbuphine HCl (Nubain) 2.5 mg IVPUSH Q3H PRN PRN Reason: Pruritis Stop: 09/02/18 23:55 Octyl Cyanoacrylate (Dermabond Advance) Confirm Administered Dose 1 applic .ROUTE .STK-MED ONE Stop: 09/02/18 00:15 Ondansetron HCl (Zofran) 4 mg IVPUSH ONETIME ONE Stop: 09/01/18 19:13 Last Admin: 09/01/18 19:22 Dose: 4 mg Ondansetron HCl (Zofran) Confirm Administered Dose 4 mg .ROUTE .STK-MED ONE Stop: 09/01/18 23:54 Oxytocin (Pitocin) Confirm Administered Dose 20 unit .ROUTE .STK-MED ONE Stop: 09/01/18 23:13 Oxytocin (Pitocin) Confirm Administered Dose 10 unit .ROUTE .STK-MED ONE Stop: 09/01/18 23:54 Phenylephrine HCl (Phenylephrine In Ns 100 Mcg/Ml) Confirm Administered Dose 1 mg .ROUTE .STK-MED ONE Stop: 09/01/18 23:13 Ropivacaine (Naropin 0.2%) Confirm Administered Dose 20 ml .ROUTE .STK-MED ONE Stop: 09/01/18 09:08 Last Admin: 09/02/18 07:20 Dose: Not Given Sodium Chloride (Saline Flush) 10 ml FLUSH ASDIRECTED PRN PRN Reason: Keep Vein Open Sodium Chloride (Saline Flush) 2.5 ml FLUSH ASDIRECTED PRN PRN Reason: Keep Vein Open Sterile Water (Sterile Water For Irrigation) 1,000 ml IRR ASDIRECTED PRN PRN Reason: delivery Terbutaline Sulfate (Brethine) 0.25 mg SUBCUT ASDIRECTED PRN PRN Reason: Tacysystole - Interaction Disposition, : [place] at Bedside Infant Interaction: Holding Feeding: Breastfed Infant; Nursed Well, Continues to Breastfeed Support Person: Other (see below) - Recovery Exam Fundal Tone: Firm Fundal Level: 1 Fingerbreadths Below Umbilicus Fundal Placement: Midline Lochia Amount: Scant Lochia Color: Rubra/Red Perineum Description: Intact, Minimal Bruising/Swelling Bladder Status: Voiding Urinary Elimination: Voided - Exam General: Alert, Oriented HEENT: Scleral Icterus Lungs: Clear to Auscultation, Normal Respiratory Effort Cardiovascular: Regular Rate, Regular Rhythm GI/Abdominal Exam: Normal Bowel Sounds, Non-Tender, No Distention, No Mass Extremities: Normal Inspection, No Pedal Edema, Normal Capillary Refill Wound/Incisions: Healing Well Psy/Mental Status: Alert, Normal Affect, Normal Mood - Problem List & Annotations (1) delivery delivered SNOMED Code(s): 830001818 Code(s): O82 - ENCOUNTER FOR DELIVERY WITHOUT INDICATION Status: Acute Current Visit: Yes (2) Arrest of descent, delivered, current hospitalization SNOMED Code(s): 41055844 Code(s): O62.1 - SECONDARY UTERINE INERTIA Status: Acute Current Visit: Yes - Problem List Review Problem List Initiated/Reviewed/Updated: Yes - My Orders Last 24 Hours: My Active Orders 09/03/18 07:00 Ibuprofen [Motrin] 800 mg PO Q8H PRN 09/04/18 07:50 Ready for Discharge [RC] PER UNIT ROUTINE - Assessment Assessment:: POD#2 s/p Primary for arrest of descent, stable and afebrile is going better, pain well controlled minimal lochia would like to go home today. - Plan Plan:: Dismiss to home, discharge instructions reviewed
[2018-09-04] MEDS: Ibuprofen 800 MG Tab PO PRN (11:36)
== END 2018-09-04 11:52 | disposition home or self-care (01) | DRG 540 ==
LOC: MW.OBCHECK 01:50 → MW.OB 01:52 → MW.OBCHECK 02:49 → MW.OB 02:49 → OBSVTOIN 23:47 → MW.OB 09-02 01:15
PROVIDERS: ADMIT Obstetrics & Gynecology; ATTEND Obstetrics & Gynecology
PROC: 10D00Z1 Extraction of Products of Conception, Low, Open Approach (ICD-10-PCS; principal; 2018-09-01)
PROC: 10907ZC Drainage of Amniotic Fluid, Therapeutic from Products of Conception, Via Natural or Artificial Opening (ICD-10-PCS; 2018-09-01)
PROC: 6A550ZT Pheresis of Cord Blood Stem Cells, Single (ICD-10-PCS; 2018-09-01)
DX: O62.1 Secondary uterine inertia (principal); O98.52 Other viral diseases complicating childbirth; B00.9 Herpesviral infection, unspecified; O36.63X0 Maternal care for excessive fetal growth, third trimester, not applicable or unspecified; O77.0 Labor and delivery complicated by meconium in amniotic fluid; Z3A.38 38 weeks gestation of pregnancy; Z37.0 Single live birth; O76 Abnormality in fetal heart rate and rhythm complicating labor and delivery; Z79.899 Other long term (current) drug therapy; Z84.81 Family history of carrier of genetic disease; Z88.6 Allergy status to analgesic agent; Z87.891 Personal history of nicotine dependence
CPT/HCPCS: 36415; 51702; 59025; 85014; 85018; 85027; 86850; 86900; 86901; A9270-GY; J0456; J0595; J0690; J1885; J2250; J2270; J2370; J2405; J2590; J7050; J7120

== ENCOUNTER 2019-04-25 10:34 | Emergency (ER) | payer BC, OTHER ==
--- NOTE | 2019-04-25 10:50 | EDM.PDOC ---
ED HPI GENERAL MEDICAL PROBLEM - General Chief Complaint: ENT Problem Stated Complaint: EAR INFECTIONS Time Seen by Provider: 04/25/19 10:36 Source of Information: Reports: Patient History Limitations: Reports: No Limitations - History of Present Illness INITIAL COMMENTS - FREE TEXT/NARRATIVE: HISTORY AND PHYSICAL: History of present illness: Patient is a 28 her old female who presents to the emergency room today with complaints of bilateral ear pain. She states she was seen on Friday at the walk- in clinic for her ear discomfort and have been placed on eardrops. She states that the pain is been progressively worse and now has drainage from the left ear. Patient denies any fever, chills, headache, change in vision, syncope or near syncope. Denies any chest pain, back pain, shortness of breath or cough. Denies any GI or symptoms Patient has been eating and drinking appropriately. Review of systems: As per history of present illness and below otherwise all systems reviewed and negative. Past medical history: As per history of present illness and as reviewed below otherwise noncontributory. Surgical history: As per history of present illness and as reviewed below otherwise noncontributory. Social history: See social history for further information Family history: As per history of present illness and as reviewed below otherwise noncontributory. Physical exam: General: Well-developed and well-nourished 28-year-old female. Alert and oriented. Nontoxic appearing and in no acute distress. HEENT: Atraumatic, normocephalic, pupils equal and reactive bilaterally, negative for conjunctival pallor or scleral icterus, mucous membranes moist, unable to visualize the left TM due to purulent drainage, right TM is mildly pinkish with good light reflex and no bulging, throat clear, neck supple, nontender, trachea midline. No drooling or trismus noted. No meningeal signs. No hot potato voice noted. Lungs: Clear to auscultation, breath sounds equal bilaterally, chest nontender. Heart: S1S2, regular rate and rhythm without overt murmur Abdomen: Soft, nondistended, nontender. Skin: Intact, warm, dry. No lesions or rashes noted. Extremities: Atraumatic, moves all extremities per self without difficulty or deficits, negative for cords or calf pain. Neurovascular unremarkable. Neuro: Awake, alert, oriented. Cranial nerves II through XII unremarkable. Cerebellum unremarkable. Motor and sensory unremarkable throughout. Exam nonfocal. Notes: Supportive care measures were reviewed and discussed. Voices understanding and is agreeable to plan of care. Denies any further questions or concerns at this time. Diagnostics: None Therapeutics: None Prescription: Augmentin Impression: Otitis media, left Plan: 1. You can wipe away any drainage from the ears please do not stick any Q-tips fingers or direct water pressure in the ear. 2. Take the antibiotic as prescribed. Alternate Tylenol and ibuprofen as needed for pain and fever management. 3. Follow-up with an environmental research scientist or your primary care provider as we discussed. Return to the ED as needed and as discussed. Definitive disposition and diagnosis as appropriate pending reevaluation and review of above. Bilateral Ear Pain Score (Numeric/FACES): 8 - Related Data Allergies Allergy/AdvReac Type Severity Reaction Status Date / Time acetaminophen [From Tylenol] Allergy Vomiting Verified 04/25/19 10:45 aspirin Allergy Vomiting Verified 04/25/19 10:45 Home Meds: Home Meds Amoxicillin/Clavulanate K [Augmentin 875-125 MG] 1 tab PO BID 10 Days #20 tablet 04/25/19 [Rx] Neomycin/Polymyxin B Sulf/HC [Zebzigez-[id number]-Os Ear Susp] 3 drop EARBOTH TID 04/25/19 [History] Past Medical History HEENT History: Reports: Impaired Vision Cardiovascular History: Reports: None Other Cardiovascular History: elevated blood pressure during Respiratory History: Reports: Asthma Gastrointestinal History: Reports: None Genitourinary History: Reports: Renal Calculus 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: Musculoskeletal History: Reports: Back Pain, Chronic Neurological History: Reports: Migraines Psychiatric History: Reports: Anxiety, Depression, OCD, Panic Attack Endocrine/Metabolic History: Reports: None Hematologic History: Reports: None Immunologic History: Reports: None Oncologic (Cancer) History: Reports: None Dermatologic History: Reports: None - Infectious Disease History Infectious Disease History: Reports: Herpes - Past Surgical History Head Surgeries/Procedures: Reports: None HEENT Surgical History: Reports: Adenoidectomy, Myringotomy w Tube(s), Tonsillectomy Cardiovascular Surgical History: Reports: None Respiratory Surgical History: Reports: None GI Surgical History: Reports: None Female Surgical History: Reports: Kidney stone extraction, Lithotripsy/ESWL Endocrine Surgical History: Reports: None Neurological Surgical History: Reports: C-Spine Musculoskeletal Surgical History: Reports: None Oncologic Surgical History: Reports: None Dermatological Surgical History: Reports: None Social & Family History - Family History Family Medical History: Noncontributory HEENT: Reports: None Cardiac: Reports: None Respiratory: Reports: Asthma GI: Reports: Irritable Bowel Syndrome : Reports: Renal Calculus OBGYN: Reports: Musculoskeletal: Reports: Arthritis, Back pain, Chronic Neurological: Reports: Cerebral Aneurysms, Migraines, TIA Psychiatric: Reports: Anxiety, Depression Endocrine/Metabolic: Reports: Diabetes, type II Hematologic: Reports: None Immunologic: Reports: None Dermatologic: Reports: None Oncologic: Reports: Colon - Caffeine Use Caffeine Use: Reports: Coffee Other Caffeine Use: 1-2 cups daily ED ROS ENT - Review of Systems Review Of Systems: ROS reveals no pertinent complaints other than HPI. ED EXAM, ENT - Physical Exam Exam: See Below (See dictation) Course - Vital Signs Last Recorded V/S: Last Vital Signs Temp 98.1 F 04/25/19 10:47 Pulse 86 04/25/19 11:10 Resp 16 04/25/19 11:10 BP 143/87 H 04/25/19 11:10 Pulse Ox 100 04/25/19 11:10 Departure - Departure Time of Disposition: 10:49 Disposition: Home, Self-Care 01 Clinical Impression: Otitis media Qualifiers: Otitis media type: suppurative Chronicity: acute Laterality: left Recurrence: not specified as recurrent Spontaneous tympanic membrane rupture: without spontaneous rupture Qualified Code(s): H66.002 - Acute suppurative otitis media without spontaneous rupture of ear drum, left ear - Discharge Information Prescriptions: Amoxicillin/Clavulanate K [Augmentin 875-125 MG] 1 tab PO BID 10 Days #20 tablet Instructions: Otitis Media, Adult, [id number] Referrals: PCP,Unknown [Primary Care Provider] - Forms: ED Department Discharge Additional Instructions: The following information is given to patients seen in the emergency department who are being discharged to home. This information is to outline your options for follow-up care. We provide all patients seen in our emergency department with a follow-up referral. The need for follow-up, as well as the timing and circumstances, are variable depending upon the specifics of your emergency department visit. If you don't have a primary care physician on staff, we will provide you with a referral. We always advise you to contact your personal physician following an emergency department visit to inform them of the circumstance of the visit and for follow-up with them and/or the need for any referrals to a consulting specialist. The emergency department will also refer you to a specialist when appropriate. This referral assures that you have the opportunity for follow-up care with a specialist. All of these measure are taken in an effort to provide you with optimal care, which includes your follow-up. Under all circumstances we always encourage you to contact your private physician who remains a resource for coordinating your care. When calling for follow-up care, please make the office aware that this follow-up is from your recent emergency room visit. If for any reason you are refused follow-up, please contact the [facility] at and asked to speak to the emergency department charge nurse. [facility] [address] [place] [id number] [facility] [address] [place] [address] 1. You can wipe away any drainage from the ears please do not stick any Q-tips fingers or direct water pressure in the ear. 2. Take the antibiotic as prescribed. Alternate Tylenol and ibuprofen as needed for pain and fever management. 3. Follow-up with an environmental research scientist or your primary care provider as we discussed. Return to the ED as needed and as discussed.
[2019-04-25 11:15] VITALS: BP 143/87
== END 2019-04-25 11:10 | disposition home or self-care (01) ==
LOC: MW.ED 10:34
DX: H66.002 Acute suppurative otitis media without spontaneous rupture of ear drum, left ear (principal); Z88.6 Allergy status to analgesic agent
CPT/HCPCS: 99282; 99283

== ENCOUNTER 2020-05-25 03:10 | Emergency (ER) | payer OTHER ==
[2020-05-25] MEDS ORDERED: Sodium Chloride 0.9% 10 ML Syringe FLUSH PRN ×2 (03:30→03:40)
[2020-05-25] MEDS ORDERED: Sodium Chloride 0.9% 2.5 ML Syringe FLUSH PRN ×2 (03:30→03:40)
[2020-05-25] MEDS ORDERED: Ondansetron 4 MG/2 ML SDV IVPUSH ONE (03:40)
--- NOTE | 2020-05-25 03:49 | EDM.PDOC ---
ED HPI GENERAL MEDICAL PROBLEM - General Chief Complaint: Abdominal Pain Stated Complaint: BACK AND ABDOMINAL PAIN Time Seen by Provider: 05/25/20 03:27 - History of Present Illness INITIAL COMMENTS - FREE TEXT/NARRATIVE: History of present illness: [] Chest pain high in her epigastrium and in the right upper posterior flank. It is higher than when her kidney stones cause pain. She has had lithotripsies in the section in the past and no other surgery. Pain is associated with nausea. The pain is moderately severe. It is worse when she moves. It is lots worse when she tries to lean on her right side or lay on her abdomen in a prone position. Really had this pain before. Review of systems: As per history of present illness and below otherwise all systems reviewed and negative. Past medical history: As per history of present illness and as reviewed below otherwise noncontributory. Surgical history: As per history of present illness and as reviewed below otherwise noncontributory. Social history: No reported history of drug or alcohol abuse. Family history: As per history of present illness and as reviewed below otherwise noncontributory. Physical exam: Constitutional - well developed, well-nourished and in no acute distress HEENT - normocephalic, no evidence of trauma - external nose and mouth normal - no mass in neck and no JVD - mucosae moist EYES - full EOM, PERRL, no icterus - no evidence of inflammation, injection, or drainage Respiratory - no respiratory distress, equal bilateral expansion, lungs clear to auscultation and no abnormal lung sounds Cardiovascular - Regular Rhythm with S1 and S2 appreciated and no murmur, gallop or rub. GI -abdomen tender in the right upper quadrant reproducing her pain. Slightly tender in the epigastrium. Abdomen soft without distension or organomegaly - normal bowel sounds - no guard or rebound Musculoskeletal no gross deformity of long bones or joints - no tenderness, swelling or edema Neurologic - Alert and oriented times four - CN II-XII grossly intact - motor sensory and coordination symmetrically normal Psychiatric - appropriate mood and affect with normal thought content Hematologic - No petechiae or purpura - mucosa appropriate color and sclera not pale - normal nail bed color and refill Integument - no rash or evidence of trauma - normal turgor Diagnostics: [] Therapeutics: [] Impression: [] Plan: [] Definitive disposition and diagnosis as appropriate pending reevaluation and review of above. mid back and mid upper abdomen Pain Score (Numeric/FACES): 7 - Related Data Allergies Allergy/AdvReac Type Severity Reaction Status Date / Time acetaminophen [From Tylenol] Allergy Vomiting Verified 05/25/20 03:40 aspirin Allergy Vomiting Verified 05/25/20 03:40 Home Meds: Home Meds Acetaminophen/HYDROcodone [[place] 325-7.5 MG] 1 tab PO Q4H PRN #14 tab 05/25/20 [Rx] Ondansetron [Zofran ODT] 4 mg PO Q6H PRN #10 tab.dis 05/25/20 [Rx] Past Medical History HEENT History: Reports: Impaired Vision Cardiovascular History: Reports: None Other Cardiovascular History: elevated blood pressure during Respiratory History: Reports: Asthma Gastrointestinal History: Reports: None Genitourinary History: Reports: Renal Calculus 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: Musculoskeletal History: Reports: Back Pain, Chronic Neurological History: Reports: Migraines Psychiatric History: Reports: Anxiety, Depression, OCD, Panic Attack Endocrine/Metabolic History: Reports: None Hematologic History: Reports: None Immunologic History: Reports: None Oncologic (Cancer) History: Reports: None Dermatologic History: Reports: None - Infectious Disease History Infectious Disease History: Reports: C-Difficile, Herpes - Past Surgical History Head Surgeries/Procedures: Reports: None HEENT Surgical History: Reports: Adenoidectomy, Myringotomy w Tube(s), Tonsillectomy Cardiovascular Surgical History: Reports: None Respiratory Surgical History: Reports: None GI Surgical History: Reports: None Female Surgical History: Reports: Kidney stone extraction, Lithotripsy/ESWL Endocrine Surgical History: Reports: None Neurological Surgical History: Reports: C-Spine Musculoskeletal Surgical History: Reports: None Oncologic Surgical History: Reports: None Dermatological Surgical History: Reports: None Social & Family History - Family History Family Medical History: Noncontributory HEENT: Reports: None Cardiac: Reports: None Respiratory: Reports: Asthma GI: Reports: Irritable Bowel Syndrome : Reports: Renal Calculus OBGYN: Reports: Musculoskeletal: Reports: Arthritis, Back pain, Chronic Neurological: Reports: Cerebral Aneurysms, Migraines, TIA Psychiatric: Reports: Anxiety, Depression Endocrine/Metabolic: Reports: Diabetes, type II Hematologic: Reports: None Immunologic: Reports: None Dermatologic: Reports: None Oncologic: Reports: Colon - Tobacco Use Smoking Status *Q: Never Smoker - Caffeine Use Caffeine Use: Reports: Coffee Other Caffeine Use: 1-2 cups daily - Recreational Drug Use Recreational Drug Use: No ED ROS GENERAL - Review of Systems Review Of Systems: Comprehensive ROS is negative, except as noted in HPI. ED EXAM, GENERAL - Physical Exam Exam: See Below Free Text/Narrative:: My physical exam as in the HPI Course - Vital Signs Text/Narrative:: 04 42 patient improved. She is comfortable now. Refer to surgeon and will give medication for pain and nausea. Last Recorded V/S: Last Vital Signs Temp 96.6 F L 05/25/20 03:20 Pulse 90 05/25/20 04:28 Resp 18 05/25/20 03:37 BP 138/84 05/25/20 04:28 Pulse Ox 98 05/25/20 04:28 - Orders/Labs/Meds Orders: Active Orders 24 hr Category Date Time Status Abdomen Ltd [US] Stat Exams 05/25/20 03:48 Taken Sodium Chloride 0.9% [Saline Flush] Med 05/25/20 03:40 Active 10 ml FLUSH ASDIRECTED PRN Sodium Chloride 0.9% [Saline Flush] Med 05/25/20 03:40 Active 2.5 ml FLUSH ASDIRECTED PRN Saline Lock Insert [OM.PC] Stat Oth 05/25/20 03:42 Ordered Medication Orders Sodium Chloride (Saline Flush) 10 ml FLUSH ASDIRECTED PRN PRN Reason: Keep Vein Open Sodium Chloride (Saline Flush) 2.5 ml FLUSH ASDIRECTED PRN PRN Reason: Keep Vein Open Labs: Laboratory Tests 05/25/20 05/25/20 05/25/20 Range/Units 03:27 03:27 03:30 WBC 10.30 (4.0-11.0) K/uL RBC 5.03 (4.30-5.90) M/uL Hgb 14.5 (12.0-16.0) g/dL Hct 44.2 (36.0-46.0) % MCV 87.9 (80.0-98.0) fL MCH 28.8 (27.0-32.0) pg MCHC 32.8 (31.0-37.0) g/dL RDW Std Deviation 39.4 (28.0-62.0) fl RDW Coeff of Talya 12 (11.0-15.0) % Plt Count 357 (150-400) K/uL MPV 9.40 (7.40-12.00) fL Neut % (Auto) 54.5 (48.0-80.0) % Lymph % (Auto) 34.4 (16.0-40.0) % [place] % (Auto) 9.3 (0.0-15.0) % Eos % (Auto) 1.6 (0.0-7.0) % Baso % (Auto) 0.2 (0.0-1.5) % Neut # (Auto) 5.6 (1.4-5.7) K/uL Lymph # (Auto) 3.5 H (0.6-2.4) K/uL [place] # (Auto) 1.0 H (0.0-0.8) K/uL Eos # (Auto) 0.2 (0.0-0.7) K/uL Baso # (Auto) 0.0 (0.0-0.1) K/uL Nucleated RBC % 0.0 /100WBC Nucleated RBCs # 0 K/uL Sodium (136-145) mmol/L Potassium (3.5-5.1) mmol/L Chloride (98-107) mmol/L Carbon Dioxide (21.0-32.0) mmol/L BUN (7.0-18.0) mg/dL Creatinine (0.6-1.0) mg/dL Est Cr Clr Drug Dosing Estimated GFR (MDRD) ml/min Glucose (74-106) mg/dL Calcium (8.5-10.1) mg/dL Total Bilirubin (0.2-1.0) mg/dL AST (15-37) IU/L ALT (14-63) IU/L Alkaline Phosphatase (46-116) U/L Total Protein (6.4-8.2) g/dL Albumin (3.4-5.0) g/dL Globulin (2.6-4.0) g/dL Albumin/Globulin Ratio (0.9-1.6) Lipase (73-393) U/L Urine Color YELLOW Urine Appearance CLOUDY Urine pH 5.5 (5.0-8.0) Ur Specific [place] >= 1.030 (1.001-1.035) Urine Protein NEGATIVE (NEGATIVE) mg/dL Urine Glucose (UA) NEGATIVE (NEGATIVE) mg/dL Urine Ketones NEGATIVE (NEGATIVE) mg/dL Urine Occult Blood NEGATIVE (NEGATIVE) Urine Nitrite NEGATIVE (NEGATIVE) Urine Bilirubin NEGATIVE (NEGATIVE) Urine Urobilinogen 0.2 (<2.0) EU/dL Ur Leukocyte Esterase NEGATIVE (NEGATIVE) Urine HCG, Qual NEGATIVE (NEGATIVE) 05/25/20 Range/Units 03:30 WBC (4.0-11.0) K/uL RBC (4.30-5.90) M/uL Hgb (12.0-16.0) g/dL Hct (36.0-46.0) % MCV (80.0-98.0) fL MCH (27.0-32.0) pg MCHC (31.0-37.0) g/dL RDW Std Deviation (28.0-62.0) fl RDW Coeff of Talya (11.0-15.0) % Plt Count (150-400) K/uL MPV (7.40-12.00) fL Neut % (Auto) (48.0-80.0) % Lymph % (Auto) (16.0-40.0) % [place] % (Auto) (0.0-15.0) % Eos % (Auto) (0.0-7.0) % Baso % (Auto) (0.0-1.5) % Neut # (Auto) (1.4-5.7) K/uL Lymph # (Auto) (0.6-2.4) K/uL [place] # (Auto) (0.0-0.8) K/uL Eos # (Auto) (0.0-0.7) K/uL Baso # (Auto) (0.0-0.1) K/uL Nucleated RBC % /100WBC Nucleated RBCs # K/uL Sodium 138 (136-145) mmol/L Potassium 3.7 (3.5-5.1) mmol/L Chloride 103 (98-107) mmol/L Carbon Dioxide 24.6 (21.0-32.0) mmol/L BUN 12 (7.0-18.0) mg/dL Creatinine 0.9 (0.6-1.0) mg/dL Est Cr Clr Drug Dosing TNP Estimated GFR (MDRD) > 60.0 ml/min Glucose 106 (74-106) mg/dL Calcium 8.9 (8.5-10.1) mg/dL Total Bilirubin 0.4 (0.2-1.0) mg/dL AST 15 (15-37) IU/L ALT 27 (14-63) IU/L Alkaline Phosphatase 67 (46-116) U/L Total Protein 7.3 (6.4-8.2) g/dL Albumin 3.7 (3.4-5.0) g/dL Globulin 3.6 (2.6-4.0) g/dL Albumin/Globulin Ratio 1.0 (0.9-1.6) Lipase 179 (73-393) U/L Urine Color Urine Appearance Urine pH (5.0-8.0) Ur Specific [place] (1.001-1.035) Urine Protein (NEGATIVE) mg/dL Urine Glucose (UA) (NEGATIVE) mg/dL Urine Ketones (NEGATIVE) mg/dL Urine Occult Blood (NEGATIVE) Urine Nitrite (NEGATIVE) Urine Bilirubin (NEGATIVE) Urine Urobilinogen (<2.0) EU/dL Ur Leukocyte Esterase (NEGATIVE) Urine HCG, Qual (NEGATIVE) Meds: Medications Generic Name Dose Route Start Last Admin Trade Name Lloyd PRN Reason Stop Dose Admin Sodium Chloride 10 ml 05/25/20 03:40 Saline Flush FLUSH ASDIRECTED PRN Keep Vein Open Sodium Chloride 2.5 ml 05/25/20 03:40 Saline Flush FLUSH ASDIRECTED PRN Keep Vein Open Discontinued Medications Generic Name Dose Route Start Last Admin Trade Name Lloyd PRN Reason Stop Dose Admin Ondansetron HCl 4 mg 05/25/20 03:40 05/25/20 03:51 Zofran IVPUSH 05/25/20 03:41 4 mg ONETIME ONE Administration Sodium Chloride 10 ml 05/25/20 03:30 Saline Flush FLUSH ASDIRECTED PRN Keep Vein Open Sodium Chloride 2.5 ml 05/25/20 03:30 Saline Flush FLUSH ASDIRECTED PRN Keep Vein Open Departure - Departure Time of Disposition: 04:44 Disposition: Home, Self-Care 01 Condition: Good Clinical Impression: Cholelithiasis, Biliary colic - Discharge Information Prescriptions: Acetaminophen/HYDROcodone [[place] 325-7.5 MG] 1 tab PO Q4H PRN #14 tab PRN Reason: Pain Ondansetron [Zofran ODT] 4 mg PO Q6H PRN #10 tab.dis PRN Reason: Nausea Instructions: Cholelithiasis, [id number] Referrals: PCP,None [Primary Care Provider] - Forms: ED Department Discharge Additional Instructions: Return if high fever, confusion, systemic signs of illness, or intolerable pain. [facility] [place] - General Surgery [address], [address] [place] [address] The following information is given to patients seen in the emergency department who are being discharged to home. This information is to outline your options for follow-up care. We provide all patients seen in our emergency department with a follow-up referral. The need for follow-up, as well as the timing and circumstances, are variable depending upon the specifics of your emergency department visit. If you don't have a primary care physician on staff, we will provide you with a referral. We always advise you to contact your personal physician following an emergency department visit to inform them of the circumstance of the visit and for follow-up with them and/or the need for any referrals to a consulting specialist. The emergency department will also refer you to a specialist when appropriate. This referral assures that you have the opportunity for follow-up care with a specialist. All of these measure are taken in an effort to provide you with optimal care, which includes your follow-up. Under all circumstances we always encourage you to contact your private physician who remains a resource for coordinating your care. When calling for follow-up care, please make the office aware that this follow-up is from your recent emergency room visit. If for any reason you are refused follow-up, please contact the [facility] Emergency Department at and asked to speak to the emergency department charge nurse. Sepsis Event Note (ED) - Evaluation Sepsis Screening Result: No Definite Risk - Focused Exam Vital Signs: Vital Signs Temp Pulse Resp BP Pulse Ox 05/25/20 04:28 90 138/84 98 05/25/20 03:37 99 18 138/84 98 05/25/20 03:20 96.6 F L 106 H 18 165/109 H 100 - My Orders Last 24 Hours: My Active Orders 05/25/20 03:40 Sodium Chloride 0.9% [Saline Flush] 10 ml FLUSH ASDIRECTED PRN Sodium Chloride 0.9% [Saline Flush] 2.5 ml FLUSH ASDIRECTED PRN 05/25/20 03:42 Saline Lock Insert [OM.PC] Stat 05/25/20 03:48 Abdomen Ltd [US] Stat - Assessment/Plan Last 24 Hours: My Active Orders 05/25/20 03:40 Sodium Chloride 0.9% [Saline Flush] 10 ml FLUSH ASDIRECTED PRN Sodium Chloride 0.9% [Saline Flush] 2.5 ml FLUSH ASDIRECTED PRN 05/25/20 03:42 Saline Lock Insert [OM.PC] Stat 05/25/20 03:48 Abdomen Ltd [US] Stat
[2020-05-25 04:03] LABS: BLOOD UREA NITROGEN,BUN 12 mg/dL (7.0-18.0); CARBON DIOXIDE,CO2 24.6 mmol/L (21.0-32.0); CHLORIDE,CL 103 mmol/L (98-107); GLUCOSE RANDOM 106 mg/dL (74-106); LIPASE 179 U/L (73-393); POTASSIUM,K 3.7 mmol/L (3.5-5.1); SODIUM,NA 138 mmol/L (136-145)
--- NOTE | 2020-05-25 04:10 | CR ---
INDICATION: Right diaphragmatic pain TECHNIQUE: AP view of the chest COMPARISON: None FINDINGS: The lungs are clear. There is no sizable pleural effusion or pneumothorax. The cardiomediastinal silhouette is normal. The visualized osseous structures are unremarkable. IMPRESSION: No acute intrathoracic process. Dictated by Eliseo Huynh MD @ May 25 2020 4:08AM Signed by Dr. Eliseo Huynh @ May 25 2020 4:08AM
[2020-05-25 04:53] VITALS: BP 133/77; PULSE 84
--- NOTE | 2020-05-25 04:54 | US ---
INDICATION: Right upper quadrant pain and tenderness TECHNIQUE: Multiple grayscale sonographic images of the right upper quadrant the abdomen. COMPARISON: None FINDINGS: There is a 1 cm shadowing stone at the gallbladder neck. The gallbladder is mildly distended. There is no gallbladder wall thickening or pericholecystic fluid. A sonographic Patten sign was not elicited. There is slightly increased echogenicity of the liver parenchyma, suggesting steatosis. No suspicious lesions are demonstrated. There is no intrahepatic biliary dilatation. The common bile duct is normal caliber, measuring up to 2 mm. The pancreatic parenchyma demonstrates normal volume and echotexture. The pancreatic duct is nondilated. The right kidney measures 11.8 cm in length and demonstrates normal cortical thickness and echotexture, without hydronephrosis. There is normal caliber of the abdominal aorta. IMPRESSION: 1. Cholelithiasis, without convincing evidence of cholecystitis. 2. Slightly increased echogenicity of the liver parenchyma, suggesting steatosis. Dictated by Eliseo Huynh MD @ May 25 2020 4:47AM Signed by Dr. Eliseo Huynh @ May 25 2020 4:53AM
== END 2020-05-25 04:53 | disposition home or self-care (01) ==
LOC: MW.ED 03:10
DX: K80.70 Calculus of gallbladder and bile duct without cholecystitis without obstruction (principal); R11.0 Nausea; J45.909 Unspecified asthma, uncomplicated; Z88.6 Allergy status to analgesic agent
CPT/HCPCS: 36415; 71045; 76705; 80053; 81003; 81025; 83690; 85025; 96374; 99284; J2405; 99283

== ENCOUNTER 2020-06-02 06:30 | Day surgery (SDC) | payer OTHER ==
[~2020-06-02 06:30] MED LIST: Lactated Ringers 1,000 ML IV SCH; ceFAZolin 2 GM in Premix Bag 1 BAG IV ONE
[2020-06-02] MEDS ORDERED: Scopolamine 1.5 MG Transdermal Patch TRDERM PRN (06:59)
--- NOTE | 2020-06-02 07:03 | PCM.PREANE ---
Preanesthetic Assessment - Anesthesia/Transfusion/Family Hx Anesthesia History: Prior Anesthesia Without Reaction Family History of Anesthesia Reaction: No Transfusion History: No Prior Transfusion(s) Intubation History: Unknown - Review of Systems General: No Symptoms Pulmonary: No Symptoms Cardiovascular: No Symptoms Gastrointestinal: No Symptoms Neurological: No Symptoms Other: Reports: None - Physical Assessment Vital Signs: Last Vital Signs Temp 36.1 C 06/02/20 06:40 Pulse 87 06/02/20 06:40 Resp 16 06/02/20 06:40 BP 135/92 H 06/02/20 06:40 Pulse Ox 100 06/02/20 06:40 Height: 5 ft 2 in Weight: 99.79 kg ASA Class: 2 Mental Status: Alert & Oriented x3 Airway Class: Mallampati = 3 Dentition: Reports: Normal Dentition Thyro-Mental Finger Breadths: 3 Mouth Opening Finger Breadths: 3 ROM/Head Extension: Full Lungs: Clear to Auscultation, Normal Respiratory Effort Cardiovascular: Regular Rate, Regular Rhythm - Lab Values: Laboratory Last Values Urine HCG, Qual NEGATIVE (NEGATIVE) 06/02/20 06:45 - Allergies Allergies/Adverse Reactions: Allergies Allergy/AdvReac Type Severity Reaction Status Date / Time acetaminophen [From Tylenol] Allergy Vomiting Verified 05/30/20 10:19 - Blood Blood Available: No - Anesthesia Plan Pre-Op Medication Ordered: None - Acknowledgements Anesthesia Type Planned: General Anesthesia Pt an Appropriate Candidate for the Planned Anesthesia: Yes Alternatives and Risks of Anesthesia Discussed w Pt/Guardian: Yes Pt/Guardian Understands and Agrees with Anesthesia Plan: Yes PreAnesthesia Questionnaire HEENT History: Reports: Other (See Below) Other HEENT History: wears glasses Cardiovascular History: Reports: None Other Cardiovascular History: elevated blood pressure during Respiratory History: Reports: Asthma Other Respiratory History: had exercised induced asthma as a teenager- has not used an inhaler for many years Gastrointestinal History: Reports: GERD Other Gastrointestinal History: hx of severe GERD in the past- has not taken medication for a few years Genitourinary History: Reports: Renal Calculus 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: Musculoskeletal History: Reports: Fracture Other Musculoskeletal History: hx of fx arm as a child Neurological History: Reports: Migraines, Vertigo Other Neuro History: has had frequent migraines the last 6 months, 3 times a week Psychiatric History: Reports: Anxiety, Depression, OCD, Panic Attack Endocrine/Metabolic History: Reports: Obesity/BMI 30+ (BMI 40.2) Hematologic History: Reports: None Immunologic History: Reports: None Oncologic (Cancer) History: Reports: Basal Cell Carcinoma Other Oncologic History: removed from face Dermatologic History: Reports: Other (See Below) Other Dermatologic History: has vaginal herpes- takes daily medication - Infectious Disease History Infectious Disease History: Reports: C-Difficile, Herpes - Past Surgical History Head Surgeries/Procedures: Reports: None HEENT Surgical History: Reports: Tonsillectomy Female Surgical History: Reports: Section, Lithotripsy/ESWL Dermatological Surgical History: Reports: Skin Biopsy - SUBSTANCE USE Tobacco Use Status *Q: Former Tobacco User (quit > 1 year ago) Tobacco Use Within Last Twelve Months: No, Snuff/Dip Recreational Drug Use History: No - HOME MEDS Home Medications: Home Meds Acetaminophen/HYDROcodone [[place] 325-7.5 MG] 1 tab PO Q4H PRN #14 tab 05/25/20 [Rx] Ondansetron [Zofran ODT] 4 mg PO Q6H PRN #10 tab.dis 05/25/20 [Rx] norethindrone ac-eth estradioL [Junel 1 mg-20 Mcg Tablet] 1 tab PO BEDTIME 05/30/20 [History] valACYclovir HCl [Valtrex] 500 mg PO BEDTIME 05/30/20 [History] - CURRENT (IN HOUSE) MEDS Current Meds: Current Medications Lactated Ringer's (Ringers, Lactated) 1,000 mls @ 125 mls/hr IV ASDIRECTED [facility] Last Admin: 06/02/20 06:50 Dose: 125 mls/hr Documented by: Discontinued Medications Cefazolin Sodium/Dextrose 2 gm (/ Premix) 50 mls @ 100 mls/hr IV ONETIME ONE Stop: 06/02/20 05:29
[2020-06-02] MEDS ORDERED: Propofol 200 MG/20 ML SDV ONE (07:07)
[2020-06-02] MEDS ORDERED: fentaNYL 250 MCG/5 ML SDV ONE (07:07)
[2020-06-02] MEDS ORDERED: Glycopyrrolate 0.2 MG/ML SDV ONE (07:07)
[2020-06-02] MEDS ORDERED: Ondansetron 4 MG/2 ML SDV ONE (07:07)
[2020-06-02] MEDS ORDERED: Lidocaine 2% 5 ML SDV ONE (07:07)
[2020-06-02] MEDS ORDERED: Midazolam 1 MG/ML 2 ML SDV ONE (07:07)
[2020-06-02] MEDS ORDERED: Rocuronium Bromide 50 MG/5 ML Syringe ONE (07:08)
[2020-06-02] MEDS ORDERED: Bupivacaine 25%/EPINEPHrine/PF 30 ML ONE (07:24)
[2020-06-02] MEDS ORDERED: Octyl 2-Cyanoacrylate 1 Tube ONE (07:31)
[2020-06-02] MEDS ORDERED: Sodium Chloride 0.9% 20 ML ONE (08:00)
[2020-06-02] MEDS ORDERED: ceFAZolin 1 GM Vial ONE (08:00)
[2020-06-02] MEDS ORDERED: Labetalol 100 MG/20 ML MDV ONE (08:06)
[2020-06-02] MEDS ORDERED: fentaNYL 100 MCG/2 ML SDV ONE ×4 (08:29→10:42)
[2020-06-02] MEDS ORDERED: hydrALAZINE 20 MG/ML SDV ONE (08:55)
[2020-06-02] MEDS ORDERED: 50% Dextrose in Water 50 ML Syringe IVPUSH PRN (09:00)
[2020-06-02] MEDS ORDERED: Atropine 0.1 MG/ML 10 ML Syringe IVPUSH PRN ×2 (09:00)
[2020-06-02] MEDS ORDERED: Naloxone 0.4 MG/ML Syringe IVPUSH PRN (09:00)
[2020-06-02] MEDS ORDERED: Albuterol 0.083% 2.5 MG/3 ML Neb Soln NEB PRN (09:00)
[2020-06-02] MEDS ORDERED: fentaNYL 100 MCG/2 ML SDV IVPUSH PRN (09:00)
[2020-06-02] MEDS ORDERED: EPINEPHrine 1:10,000 1 MG/10 ML Syringe IVPUSH PRN (09:00)
[2020-06-02] MEDS ORDERED: HYDROmorphone 2 MG/ML Syringe ONE (09:01)
[2020-06-02] MEDS ORDERED: Ketorolac 30 MG/ML SDV ONE (09:14)
[2020-06-02] MEDS ORDERED: oxyCODONE 5 MG Tab PO PRN (09:51)
--- NOTE | 2020-06-02 10:30 | PCM.POSTAN ---
POST ANESTHESIA ASSESSMENT - MENTAL STATUS Mental Status: Alert, Oriented - VITAL SIGNS Vital Signs: Last Vital Signs Temp 37.0 C 06/02/20 09:34 Pulse 91 06/02/20 10:15 Resp 18 06/02/20 10:15 BP 110/65 06/02/20 10:15 Pulse Ox 96 06/02/20 10:15 - RESPIRATORY Respiratory Status: Respiratory Rate WNL, Airway Patent, O2 Saturation Stable - CARDIOVASCULAR CV Status: Pulse Rate WNL, Blood Pressure Stable - GASTROINTESTINAL GI Status: No Symptoms - PAIN Pain Score: 4 - POST OP HYDRATION Hydration Status: Adequate & Stable - OBSERVATIONS Free Text/Narrative:: No anesthesia problems
[2020-06-02] MEDS: fentaNYL 100 MCG/2 ML SDV IVPUSH PRN ×2 (10:50→11:10)
--- NOTE | 2020-06-02 10:52 | PCM.OPNOTE ---
- General Post-Op/Procedure Note Date of Surgery/Procedure: 06/02/20 Operative Procedure(s): lap chris Findings: gb was mildly thickened wall, a 15 mm gallstone; and adherence to duodenum and omentum, yellow and green, cw chronic and acute cholecystitis; surgicell inserted at end of surgery; [id number] Pre Op Diagnosis: cholecystitis Post-Op Diagnosis: Same Anesthesia Technique: General ET Tube Primary Surgeon: Nick Osborn Pathology: sent Complications: None Condition: Good Free Text/Narrative:: Intake & Output 06/01/20 06/02/20 06/02/20 22:59 06:59 14:59 Intake Total 2100 Balance 2100
[2020-06-02 11:18] VITALS: BP 102/64; PULSE 92
--- NOTE | 2020-06-02 11:33 | PCM48HPAN ---
Post Anesthesia Note - EVALUATION WITHIN 48HRS OF ANESTHETIC Vital Signs in Normal Range: Yes Patient Participated in Evaluation: Yes Respiratory Function Stable: Yes Airway Patent: Yes Cardiovascular Function Stable: Yes Hydration Status Stable: Yes Pain Control Satisfactory: Yes Nausea and Vomiting Control Satisfactory: Yes Mental Status Recovered: Yes Vital Signs: Last Vital Signs Temp 37.0 C 06/02/20 09:34 Pulse 92 06/02/20 10:50 Resp 16 06/02/20 10:50 BP 102/64 06/02/20 10:50 Pulse Ox 97 06/02/20 10:20 - COMMENTS/OBSERVATIONS Free Text/Narrative:: No anesthesia problems
--- NOTE | 2020-06-02 13:48 | OR ---
SURGEON: Nick Osborn MD DATE OF PROCEDURE: 06/02/2020 PREOPERATIVE DIAGNOSIS: Acute on chronic cholecystitis. POSTOPERATIVE DIAGNOSIS: Acute on chronic cholecystitis. PROCEDURE PERFORMED: Laparoscopic cholecystectomy. PRIMARY SURGEON: Nick Osborn MD. COMPLICATIONS: None. FINDINGS: Gallbladder was mildly distended with mildly thickened wall and a 15 mm gallstone was found and some small sludge, and adherence to the duodenum and omentum yellow and green consistent with chronic and acute cholecystitis. PROCEDURE NOTE: The patient was taken to the operating room and placed in the supine position. After the intubation of general endotracheal anesthesia, the patient's abdomen was prepped and draped in the usual sterile fashion. Using Optiview, a 12 mm trocar was placed supraumbilically and then followed with pneumoperitoneum. A 5 mm trocar was placed in the epigastrium and two 5 mm trocars placed in the right upper quadrant. The placement of the last three trocars was done under direct video supervision. Upon gaining entrance to the abdominal cavity, an extensive examination was then performed. The gallbladder was located and identified and retracted to the dome of the liver at the triangle of Calot. The cystic duct was clipped three more times and then using the endoscopic clip, was transected with placement of the endoscopic clip and transection was performed with care, ensuring the posterior prong of the instruments were clearly visualized prior to exercising the procedure. The gallbladder was dissected using electrocautery out of the liver bed and then removed using endoscopic bag through the umbilical site. The gallbladder was removed en bloc and there was no bile spillage and this was then followed with extensive irrigation until the bile was clear from blood and bile. A piece of Surgicel was placed for hemostasis. The trocars were then removed under direct video supervision. The 12 mm umbilical site was then closed with deep stitches using 0 Vicryl followed with proximal stitches using 3-0 Vicryl and Dermabond. The other three trocar sites were closed with 3-0 Vicryl followed with approximation of skin with Dermabond. The patient was then awakened and extubated and transferred to the recovery room in hemodynamically stable condition. At the conclusion of the surgery, before closing the abdominal wound, instrument count and sponge count were done and were correct. The patient tolerated the procedure well and there were no intraoperative complications. Dr. Osborn was present through the whole procedure. Just before surgery, a timeout was called. The patient was identified and procedure identified and procedure started. LOWELL WARE /[id number]
== END 2020-06-02 11:40 | disposition home or self-care (01) ==
LOC: MW.SDS 06:30
PROVIDERS: ATTEND Surgery
DX: K80.10 Calculus of gallbladder with chronic cholecystitis without obstruction (principal); F41.9 Anxiety disorder, unspecified; F32.9 Major depressive disorder, single episode, unspecified; I10 Essential (primary) hypertension; G43.909 Migraine, unspecified, not intractable, without status migrainosus; J45.909 Unspecified asthma, uncomplicated; Z79.899 Other long term (current) drug therapy; Z88.8 Allergy status to other drugs, medicaments and biological substances; Z87.891 Personal history of nicotine dependence
CPT/HCPCS: 47562; 81025; 88304; A9270; J0360; J0690; J1170; J1885; J2001; J2250; J2405; J2704; J3010; J3490; J7120; 00790

== ENCOUNTER 2020-06-02 19:33 | Emergency (ER) | payer OTHER ==
[2020-06-02] MEDS ORDERED: Morphine 4 MG/ML Syringe IVPUSH ONE ×3 (21:01→22:43)
[2020-06-02] MEDS ORDERED: Sodium Chloride 0.9% 1,000 ML IV ONE (21:01)
[2020-06-02] MEDS ORDERED: Ondansetron 4 MG/2 ML SDV IVPUSH ONE (21:01)
--- NOTE | 2020-06-02 21:06 | EDM.PDOC ---
<Niels Fung - Last Filed: 06/02/20 22:57> ED HPI GENERAL MEDICAL PROBLEM - General Chief Complaint: Abdominal Pain Stated Complaint: GALLBLADDER SURGERY, VOMITTING, NAUSEA Time Seen by Provider: 06/02/20 20:57 - History of Present Illness INITIAL COMMENTS - FREE TEXT/NARRATIVE: 11 PM: Patient seen and evaluated by me. CT scan shows no acute pathology. Abd: Soft, nondistended, no rebound/guarding, no psoas or obturator signs, no tenderness at Mcberney's point, no Patten's sign. Pt does not present with an exam that would be consistent with an acute surgical abdomen at this time, mild tenderness palpation midepigastric region We will resume with plan as outlined with discharge. Patient reports Phenergan suppositories have worked better for her in the past. Patient was advised that she can add Zofran as well if the fetor suppositories alone are not adequate. Patient is to follow-up with her doctor as scheduled. Reassessment at the time of disposition demonstrates that the patient is in no acute distress. The patient has remained stable throughout the entire ED visit and is without objective evidence for acute process requiring urgent intervention or hospitalization. The patient is stable for discharge, counseling is provided as documented above, discussed symptomatic treatment and specific conditions for return. I have spoken with the patient/caregiver and discussed todays findings, in addition to providing specific details for the plan of care. Questions are answered and there is agreement with the plan. - Related Data Allergies Allergy/AdvReac Type Severity Reaction Status Date / Time acetaminophen [From Tylenol] Allergy Vomiting Verified 06/02/20 21:04 Home Meds: Home Meds Acetaminophen/HYDROcodone [Francitas 325-7.5 MG] 1 tab PO Q4H PRN #14 tab 05/25/20 [Rx] Ondansetron [Zofran ODT] 4 mg PO Q6H PRN #10 tab.dis 05/25/20 [Rx] norethindrone ac-eth estradioL [Junel 1 mg-20 Mcg Tablet] 1 tab PO BEDTIME 05/30/20 [History] valACYclovir HCl [Valtrex] 500 mg PO BEDTIME 05/30/20 [History] Departure - Departure Time of Disposition: 22:59 Disposition: Home, Self-Care 01 Clinical Impression: Postoperative pain, Postoperative nausea and vomiting, Status post laparoscopic cholecystectomy, Abdominal pain - Discharge Information Instructions: Nausea, Adult, Abdominal Pain, Adult, Laparoscopic Cholecystectomy, Care After, [id number], Pain Medicine Instructions Referrals: Adelia Clarke NP [Primary Care Provider] - Forms: ED Department Discharge Additional Instructions: The following information is given to patients seen in the emergency department who are being discharged to home. This information is to outline your options for follow-up care. We provide all patients seen in our emergency department with a follow-up referral. The need for follow-up, as well as the timing and circumstances, are variable depending upon the specifics of your emergency department visit. If you don't have a primary care physician on staff, we will provide you with a referral. We always advise you to contact your personal physician following an emergency department visit to inform them of the circumstance of the visit and for follow-up with them and/or the need for any referrals to a consulting specialist. The emergency department will also refer you to a specialist when appropriate. This referral assures that you have the opportunity for follow-up care with a specialist. All of these measure are taken in an effort to provide you with optimal care, which includes your follow-up. Under all circumstances we always encourage you to contact your private physician who remains a resource for coordinating your care. When calling for follow-up care, please make the office aware that this follow-up is from your recent emergency room visit. If for any reason you are refused follow-up, please contact the [facility] Emergency Department at and asked to speak to the emergency department charge nurse. [facility] [address] [place] [address] [id number] [address] [id number] Thank you for choosing the [facility] emergency department in [place] for your medical needs today. It was a pleasure caring for you. Today you were seen in the emergency department for postoperative nausea, vomiting and pain. 1. You can continue taking your home medications as directed and follow your post-operative directions. 2. Stay on top of your nausea and pain medications over the next few days. 3. Follow up with Dr Osborn as directed. Return to the ED as needed and as discussed. <Divya Dobson E - Last Filed: 06/03/20 10:43> ED HPI GENERAL MEDICAL PROBLEM - General Source of Information: Reports: Patient History Limitations: Reports: No Limitations - History of Present Illness INITIAL COMMENTS - FREE TEXT/NARRATIVE: HISTORY AND PHYSICAL: History of present illness: Patient is a 29-year-old female who presents to the emergency room with complaints of nausea, vomiting and generalized abdominal pain post cholecystectomy. Patient had a lap-choley done earlier this morning (by Dr Osborn) and since being discharge to home - she states she has not been able to keep any of her pain medication down. She is concerned she may be dehydrated. Patient denies any fever, chills, headache, change in vision, syncope or near syncope. Denies any chest pain, back pain, shortness of breath or cough. Denies any diarrhea, constipation or dysuria. Has not noted any blood in urine or stool. Patient has been eating and drinking appropriately. Review of systems: As per history of present illness and below otherwise all systems reviewed and negative. Past medical history: As per history of present illness and as reviewed below otherwise n oncontributory. Surgical history: As per history of present illness and as reviewed below otherwise noncontributory. Social history: See social history for further information Family history: As per history of present illness and as reviewed below otherwise noncontributory. Physical exam: General: Well developed and well nourished 29 year old female. Alert and orientated x 3. Nontoxic in appearance and in no acute distress. Vital signs are stable and have been reviewed by me. Nursing notes were reviewed. HEENT: Atraumatic, normocephalic, pupils equal and reactive bilaterally, negative for conjunctival pallor or scleral icterus, mucous membranes moist, trachea midline. No drooling or trismus noted. No meningeal signs. No hot potato voice noted. Lungs: Clear to auscultation, breath sounds equal bilaterally, chest nontender. Normal work of breathing, no accessory muscles used. Heart: S1S2, regular rate and rhythm without overt murmur Abdomen: Soft, nondistended, generalized tenderness. Puncture incision sites are WNL (no drainage noted or fluctuance). Negative for costovertebral tenderness. Pelvis: Stable nontender. Skin: Stab sites from surgery are WNL. Otherwise remaining skin is intact, warm, dry. No lesions or rashes noted. Hematologic: No petechiae or purpra. Mucosa appropriate color and normal nail bed color and refill. Extremities: Atraumatic, moves all extremities per self without difficulty or deficits, negative for cords or calf pain. Neurovascular unremarkable. Neuro: Awake, alert, oriented. Cranial nerves II through XII unremarkable. Cerebellum unremarkable. Motor and sensory unremarkable throughout. Exam nonfocal. Psychiatric: Mood and affect are appropriate. Normal thought process. Answering questions appropriately. Notes: The emergency department has been fall and the patient has been in the waiting area for approximately 45 minutes to an hour (supervised by triage nurse) did not have any episodes of vomiting while in the waiting area. My physical exam shows no concerning findings of the postop incisions. Basic lab work has been done, IV fluids and medications given. Patient states her nausea has improved although she is still having quite a bit of abdominal pain. We did discuss the leukocytosis and option of doing a CT scan of her abdomen and pelvis to rule out postop infection/abscess. She would like to proceed with the CT scan. Vital signs are stable. Dr Fung will follow up on CT abd/pelvis and disposition appropriately. Diagnostics: CBC, CMP Therapeutics: IV Zofran, Morphine Prescription: Phenergan suppository Impression: Nausea and vomiting Plan: 1. You can continue taking your home medications as directed and follow your post-operative directions. 2. Stay on top of your nausea and pain medications over the next few days. 3. Follow up with Dr Osborn as directed. Return to the ED as needed and as discussed. Definitive disposition and diagnosis as appropriate pending reevaluation and review of above. Onset: Today Location: Reports: Abdomen abdomen Pain Score (Numeric/FACES): 8 Past Medical History HEENT History: Reports: Other (See Below) Other HEENT History: wears glasses Cardiovascular History: Reports: None Other Cardiovascular History: elevated blood pressure during Respiratory History: Reports: Asthma Other Respiratory History: had exercised induced asthma as a teenager- has not used an inhaler for many years Gastrointestinal History: Reports: GERD Other Gastrointestinal History: hx of severe GERD in the past- has not taken medication for a few years Genitourinary History: Reports: Renal Calculus 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: Musculoskeletal History: Reports: Fracture Other Musculoskeletal History: hx of fx arm as a child Neurological History: Reports: Migraines, Vertigo Other Neuro History: has had frequent migraines the last 6 months, 3 times a week Psychiatric History: Reports: Anxiety, Depression, OCD, Panic Attack Endocrine/Metabolic History: Reports: Obesity/BMI 30+ (BMI 40.2) Hematologic History: Reports: None Immunologic History: Reports: None Oncologic (Cancer) History: Reports: Basal Cell Carcinoma Other Oncologic History: removed from face Dermatologic History: Reports: Other (See Below) Other Dermatologic History: has vaginal herpes- takes daily medication - Infectious Disease History Infectious Disease History: Reports: C-Difficile, Herpes - Past Surgical History Head Surgeries/Procedures: Reports: None HEENT Surgical History: Reports: Tonsillectomy Female Surgical History: Reports: Section, Lithotripsy/ESWL Dermatological Surgical History: Reports: Skin Biopsy Social & Family History - Family History Family Medical History: Noncontributory HEENT: Reports: None Cardiac: Reports: None Respiratory: Reports: Asthma GI: Reports: Irritable Bowel Syndrome : Reports: Renal Calculus OBGYN: Reports: Musculoskeletal: Reports: Arthritis, Back pain, Chronic Neurological: Reports: Cerebral Aneurysms, Migraines, TIA Psychiatric: Reports: Anxiety, Depression Endocrine/Metabolic: Reports: Diabetes, type II Hematologic: Reports: None Immunologic: Reports: None Dermatologic: Reports: None Oncologic: Reports: Colon - Caffeine Use Caffeine Use: Reports: Coffee Other Caffeine Use: 1-2 cups daily ED ROS GENERAL - Review of Systems Review Of Systems: Comprehensive ROS is negative, except as noted in HPI. ED EXAM, GI/ABD - Physical Exam Exam: See Below (See dictation) Course - Vital Signs Last Recorded V/S: Last Vital Signs Temp 97.4 F 06/02/20 22:57 Pulse 95 06/02/20 22:57 Resp 16 06/02/20 22:57 BP 122/72 06/02/20 22:57 Pulse Ox 97 06/02/20 22:57 - Orders/Labs/Meds Labs: Laboratory Tests 06/02/20 06/02/20 Range/Units 21:27 21:27 WBC 13.91 H (4.0-11.0) K/uL RBC 4.82 (4.30-5.90) M/uL Hgb 14.0 (12.0-16.0) g/dL Hct 42.5 (36.0-46.0) % MCV 88.2 (80.0-98.0) fL MCH 29.0 (27.0-32.0) pg MCHC 32.9 (31.0-37.0) g/dL RDW Std Deviation 40.3 (28.0-62.0) fl RDW Coeff of Talya 13 (11.0-15.0) % Plt Count 392 (150-400) K/uL MPV 9.60 (7.40-12.00) fL Neut % (Auto) 87.4 H (48.0-80.0) % Lymph % (Auto) 9.0 L (16.0-40.0) % Fulton % (Auto) 3.5 (0.0-15.0) % Eos % (Auto) 0.0 (0.0-7.0) % Baso % (Auto) 0.1 (0.0-1.5) % Neut # (Auto) 12.2 H (1.4-5.7) K/uL Lymph # (Auto) 1.3 (0.6-2.4) K/uL Fulton # (Auto) 0.5 (0.0-0.8) K/uL Eos # (Auto) 0.0 (0.0-0.7) K/uL Baso # (Auto) 0.0 (0.0-0.1) K/uL Nucleated RBC % 0.0 /100WBC Nucleated RBCs # 0 K/uL Sodium 135 L (136-145) mmol/L Potassium 3.9 (3.5-5.1) mmol/L Chloride 101 (98-107) mmol/L Carbon Dioxide 23.6 (21.0-32.0) mmol/L BUN 9 (7.0-18.0) mg/dL Creatinine 0.9 (0.6-1.0) mg/dL Est Cr Clr Drug Dosing 72.95 mL/min Estimated GFR (MDRD) > 60.0 ml/min Glucose 125 H (74-106) mg/dL Calcium 8.7 (8.5-10.1) mg/dL Total Bilirubin 0.8 (0.2-1.0) mg/dL AST 51 H (15-37) IU/L ALT 63 (14-63) IU/L Alkaline Phosphatase 62 (46-116) U/L Total Protein 7.4 (6.4-8.2) g/dL Albumin 3.7 (3.4-5.0) g/dL Globulin 3.7 (2.6-4.0) g/dL Albumin/Globulin Ratio 1.0 (0.9-1.6) Meds: Medications Discontinued Medications Generic Name Dose Route Start Last Admin Trade Name Freq PRN Reason Stop Dose Admin Hydromorphone HCl 1 mg 06/02/20 21:43 Dilaudid IVPUSH 06/02/20 21:44 ONETIME ONE Sodium Chloride 1,000 mls @ 999 mls/hr 06/02/20 21:01 06/02/20 21:21 Normal Saline IV 06/02/20 22:01 999 mls/hr STAT ONE Administration Iopamidol 100 ml 06/02/20 22:31 06/02/20 22:32 Isovue Multipack-370 (76%) IVPUSH 06/02/20 22:32 100 ml ONETIME STA Administration Morphine Sulfate 4 mg 06/02/20 21:01 06/02/20 21:22 Morphine IVPUSH 06/02/20 21:02 4 mg ONETIME ONE Administration Morphine Sulfate 4 mg 06/02/20 22:43 06/02/20 22:51 Morphine IVPUSH 06/02/20 22:44 4 mg ONETIME ONE Administration Morphine Sulfate 4 mg 06/02/20 22:43 06/02/20 22:51 Morphine IVPUSH 06/02/20 22:44 Not Given ONETIME ONE Ondansetron HCl 4 mg 06/02/20 21:01 06/02/20 21:22 Zofran IVPUSH 06/02/20 21:02 4 mg ONETIME ONE Administration Sepsis Event Note (ED) - Focused Exam Vital Signs: Vital Signs Temp Pulse Resp BP Pulse Ox 06/02/20 22:57 97.4 F 95 16 122/72 97
[2020-06-02] MEDS ORDERED: HYDROmorphone 1 MG/ML Syringe IVPUSH ONE (21:43)
[2020-06-02 21:53] LABS: BLOOD UREA NITROGEN,BUN 9 mg/dL (7.0-18.0); CARBON DIOXIDE,CO2 23.6 mmol/L (21.0-32.0); CHLORIDE,CL 101 mmol/L (98-107); GLUCOSE RANDOM 125 mg/dL (74-106); POTASSIUM,K 3.9 mmol/L (3.5-5.1); SODIUM,NA 135 mmol/L (136-145)
[2020-06-02] MEDS ORDERED: Iopamidol 755 MG/ML 500 ML Multipack Bottle IVPUSH STA (22:31)
--- NOTE | 2020-06-02 22:53 | CT ---
INDICATION: Nausea and vomiting. Abdominal pain. Status post cholecystectomy. TECHNIQUE: Axial images were obtained from the diaphragm to the pubic symphysis. Reformats were obtained in the coronal and sagittal plane. IV Contrast: 100 cc Isovue 370 Oral Contrast: None COMPARISON: None. FINDINGS: Lower chest: Basilar discoid atelectasis. Air tracks into the lower mediastinum. Liver: Unremarkable. Normal in size and attenuation. No masses. Gallbladder and bile ducts: Status post cholecystectomy. Mix of air as well as heterogeneous density within the gallbladder fossa measuring to 2.1 centimeters. Spleen: Unremarkable. Normal in size without mass. Pancreas: Unremarkable. No mass or inflammation. Adrenal glands: Unremarkable. No nodules. Kidneys: Unremarkable. No masses, stones, or hydronephrosis. Vasculature: Unremarkable. GI tract: The stomach is decompressed. No dilated loops of large or small intestine. Appendix is unremarkable. Extensive pneumoperitoneum. Fat stranding and subcutaneous air along the umbilicus. Pelvis: Small amount of air within the bladder lumen. The uterus is anteverted. No adnexal mass. Bones: Unremarkable for age. IMPRESSION: 1. Status post cholecystectomy with extensive pneumoperitoneum, presumed postoperative. 2. Heterogeneous density within the gallbladder fossa measuring up to 2.1 centimeters, likely a mixture of postoperative fluid and hematoma. No drainable abscess. Please note that all CT scans at this facility use dose modulation, iterative reconstruction, and/or weight-based dosing when appropriate to reduce radiation dose to as low as reasonably achievable. Dictated by Nitesh Strong MD @ Jun 02 2020 10:47PM Signed by Dr. Nitesh Strong @ Jun 02 2020 10:53PM
[2020-06-02 22:57] VITALS: BP 122/72; PULSE 95
== END 2020-06-02 23:14 | disposition home or self-care (01) ==
LOC: MW.ED 19:33
DX: G89.18 Other acute postprocedural pain (principal); R10.13 Epigastric pain; K91.0 Vomiting following gastrointestinal surgery; E66.9 Obesity, unspecified; Z68.41 Body mass index [BMI] 40.0-44.9, adult; Z90.49 Acquired absence of other specified parts of digestive tract; Z88.6 Allergy status to analgesic agent
CPT/HCPCS: 36415; 74177; 80053; 85025; 96374; 96375; 96376; 99284; J2270; J2405; J7030; Q9967; 99283

== ENCOUNTER 2020-10-10 13:52 | Day surgery (SDC) | payer OTHER ==
[2020-10-10] MEDS ORDERED: Sodium Chloride 0.9% 2.5 ML Syringe FLUSH PRN (14:27)
[2020-10-10] MEDS ORDERED: Sodium Chloride 0.9% 10 ML SDV IV PRN (14:27)
[2020-10-10] MEDS ORDERED: Sodium Chloride 0.9% 10 ML Syringe FLUSH PRN (14:27)
[2020-10-10] MEDS ORDERED: Lactated Ringers 1,000 ML IV SCH (14:30)
[2020-10-10] MEDS ORDERED: Scopolamine 1.5 MG Transdermal Patch TRDERM PRN (14:48)
--- NOTE | 2020-10-10 14:48 | PCM.PREANE ---
Preanesthetic Assessment - Anesthesia/Transfusion/Family Hx Anesthesia History: Prior Anesthesia Without Reaction Family History of Anesthesia Reaction: No Transfusion History: No Prior Transfusion(s) Intubation History: Unknown - Review of Systems General: No Symptoms Pulmonary: No Symptoms Cardiovascular: No Symptoms Gastrointestinal: No Symptoms Neurological: No Symptoms Other: Reports: None - Physical Assessment NPO Status Date: 10/10/20 NPO Status Time: 10:00 (Apple Juice, denies food today) Vital Signs: Last Vital Signs Temp 98.1 F 10/10/20 14:14 Pulse 82 10/10/20 14:14 Resp 16 10/10/20 14:14 BP 125/72 10/10/20 14:14 Pulse Ox 99 10/10/20 14:14 Height: 5 ft 2.5 in Weight: 108.409 kg ASA Class: 2 Mental Status: Alert & Oriented x3 Airway Class: Mallampati = 2 Dentition: Reports: Normal Dentition Thyro-Mental Finger Breadths: 3 Mouth Opening Finger Breadths: 3 ROM/Head Extension: Full Lungs: Clear to Auscultation, Normal Respiratory Effort Cardiovascular: Regular Rate, Regular Rhythm - Lab Values: Laboratory Last Values SARS-CoV-2 RNA (KISHORE) NEGATIVE (NEGATIVE) 10/10/20 09:38 - Allergies Allergies/Adverse Reactions: Allergies Allergy/AdvReac Type Severity Reaction Status Date / Time acetaminophen [From Tylenol] Allergy Stomach Verified 10/10/20 09:22 Ache - Acknowledgements Anesthesia Type Planned: General Anesthesia (LMA) Pt an Appropriate Candidate for the Planned Anesthesia: Yes Alternatives and Risks of Anesthesia Discussed w Pt/Guardian: Yes Pt/Guardian Understands and Agrees with Anesthesia Plan: Yes PreAnesthesia Questionnaire HEENT History: Reports: Other (See Below) Other HEENT History: wears glasses Cardiovascular History: Reports: Hypertension Respiratory History: Reports: Asthma, Other (See Below) (Previous smoker, quit 3 years) Other Respiratory History: had exercised induced asthma as a teenager- has not used an inhaler for many years Gastrointestinal History: Reports: GERD Other Gastrointestinal History: occasional heartburn Genitourinary History: Reports: Renal Calculus, STD Other Genitourinary History: genital herpes 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: Musculoskeletal History: Reports: Fracture Other Musculoskeletal History: hx of fx arm as a child Neurological History: Reports: Migraines Psychiatric History: Reports: Anxiety, Depression, OCD, Panic Attack Endocrine/Metabolic History: Reports: Obesity/BMI 30+ Hematologic History: Reports: None Immunologic History: Reports: None Oncologic (Cancer) History: Reports: Basal Cell Carcinoma Other Oncologic History: removed from face Dermatologic History: Reports: Other (See Below) Other Dermatologic History: sensitive skin - Infectious Disease History Infectious Disease History: Reports: C-Difficile, Chicken Pox, Herpes Other Infectious Disease History: vaginal herpes - Past Surgical History Head Surgeries/Procedures: Reports: None HEENT Surgical History: Reports: Tonsillectomy Cardiovascular Surgical History: Reports: None Respiratory Surgical History: Reports: None GI Surgical History: Reports: Cholecystectomy Female Surgical History: Reports: Section, Lithotripsy/ESWL Endocrine Surgical History: Reports: None Neurological Surgical History: Reports: None Musculoskeletal Surgical History: Reports: None Oncologic Surgical History: Reports: None Dermatological Surgical History: Reports: Skin Biopsy - SUBSTANCE USE Tobacco Use Status *Q: Former Tobacco User Tobacco Use Within Last Twelve Months: Cigarettes - HOME MEDS Home Medications: Home Meds Acetaminophen [Tylenol] 1 - 2 tab PO ASDIRECTED PRN 10/10/20 [History] Docusate Sodium [Colace] 1 tab PO DAILY 10/10/20 [History] Labetalol HCl [Labetalol] 100 mg PO DAILY PRN 10/10/20 [History] Mag Hydrox/Aluminum Hyd/Simeth [Mylanta Maximum Strength Liq] 1 dose PO ASDIRECTED PRN 10/10/20 [History] - CURRENT (IN HOUSE) MEDS Current Meds: Current Medications Lactated Ringer's (Ringers, Lactated) 1,000 mls @ 125 mls/hr IV ASDIRECTED ORTEGA Sodium Chloride (Saline Flush) 10 ml FLUSH ASDIRECTED PRN PRN Reason: Keep Vein Open Sodium Chloride (Saline Flush) 2.5 ml FLUSH ASDIRECTED PRN PRN Reason: Keep Vein Open Sodium Chloride (Normal Saline) 10 ml IV ASDIRECTED PRN PRN Reason: IV Use
[2020-10-10] MEDS ORDERED: fentaNYL 100 MCG/2 ML SDV ONE (15:07)
[2020-10-10] MEDS ORDERED: Midazolam 1 MG/ML 2 ML SDV ONE (15:07)
[2020-10-10] MEDS ORDERED: Lidocaine 2% 5 ML SDV ONE (15:07)
[2020-10-10] MEDS ORDERED: Ondansetron 4 MG/2 ML SDV ONE (15:07)
[2020-10-10] MEDS ORDERED: Propofol 200 MG/20 ML SDV ONE (15:07)
[2020-10-10] MEDS ORDERED: Dexamethasone 4 MG/ML 5 ML MDV ONE (15:14)
[2020-10-10] MEDS ORDERED: Ketorolac 30 MG/ML SDV ONE (15:45)
--- NOTE | 2020-10-10 15:59 | PCM.OPNOTE ---
<Maribell Jolly - Last Filed: 10/10/20 16:03> - General Post-Op/Procedure Note Date of Surgery/Procedure: 10/10/20 Operative Procedure(s): Suction dilation and curettage Findings: Products of conception. 6 week sized anteverted uterus. Pre Op Diagnosis: 6 week missed Post-Op Diagnosis: Same Anesthesia Technique: General LMA Primary Surgeon: Shani Conner Secondary Surgeon: Maribell Jolly (MS4) Pathology: Products of conception Fluid Replacement, Intraop: 800 Output, Urine Amount: 50 EBL in mLs: 100 Complications: none known Condition: Good Free Text/Narrative:: A- blood type, patient to receive rhogam 300ug in PACU. <Shani Conner - Last Filed: 10/10/20 16:12> - General Post-Op/Procedure Note Pre Op Diagnosis: 6 week incomplete Free Text/Narrative:: Intake & Output 10/10/20 10/10/20 10/10/20 06:59 14:59 22:59 Intake Total 800 Output Total 50 Balance 750 Dictation #[id number]
[2020-10-10] MEDS ORDERED: Acetaminophen 1,000 MG in Premix Bag 1 BAG IV ONE (16:04)
--- NOTE | 2020-10-10 16:42 | PCM.POSTAN ---
POST ANESTHESIA ASSESSMENT - MENTAL STATUS Mental Status: Alert, Oriented - VITAL SIGNS Vital Signs: Last Vital Signs Temp 37.1 C 10/10/20 16:29 Pulse 67 10/10/20 16:36 Resp 13 10/10/20 16:36 BP 103/54 L 10/10/20 16:36 Pulse Ox 99 10/10/20 16:36 - RESPIRATORY Respiratory Status: Respiratory Rate WNL, Airway Patent, O2 Saturation Stable - CARDIOVASCULAR CV Status: Pulse Rate WNL, Blood Pressure Stable - GASTROINTESTINAL GI Status: No Symptoms - PAIN Pain Score: 1 - POST OP HYDRATION Hydration Status: Adequate & Stable
[2020-10-10 17:11] VITALS: BP 109/64; PULSE 72
--- NOTE | 2020-10-10 17:17 | PCM48HPAN ---
Post Anesthesia Note - EVALUATION WITHIN 48HRS OF ANESTHETIC Vital Signs in Normal Range: Yes Patient Participated in Evaluation: Yes Respiratory Function Stable: Yes Airway Patent: Yes Cardiovascular Function Stable: Yes Hydration Status Stable: Yes Pain Control Satisfactory: Yes Nausea and Vomiting Control Satisfactory: Yes Mental Status Recovered: Yes Vital Signs: Last Vital Signs Temp 36.3 C 10/10/20 16:40 Pulse 72 10/10/20 17:10 Resp 16 10/10/20 17:10 BP 109/64 10/10/20 17:10 Pulse Ox 97 10/10/20 17:10
--- NOTE | 2020-10-10 18:37 | OR ---
SURGEON: ANTONIETA CONNER MD DATE OF PROCEDURE: 10/10/2020 PREOPERATIVE DIAGNOSIS: Six-week incomplete . POSTOPERATIVE DIAGNOSIS: Six-week incomplete . PROCEDURE: Suction dilation and curettage. PRIMARY SURGEON: Antonieta Conner MD, present for the entire procedure. THERAPIST PHYS: Maribell Jolly MS4 ANESTHESIA: LMA. COMPLICATIONS: None known. ESTIMATED BLOOD LOSS: 100 mL. IV FLUIDS: 800 mL of crystalloid. URINE OUTPUT: 50 mL, straight cath prior to the procedure. FINDINGS: Six-week size anteverted uterus, products of conception. PATHOLOGY: Products of conception. DESCRIPTION OF PROCEDURE: The patient was taken to the operating room where anesthesia was induced. She was prepped and draped in the dorsal lithotomy position. A weighted speculum was placed into the vagina to visualize the cervix. An Allis clamp was then used to grasp the cervix at 12 o'clock. The cervix was then serially dilated to 7 Hegar dilator. A #7 curved suction curette was advanced to the fundus. It was attached to suction and rotated to clear the uterus of products of conception. A sharp curettage was then performed until a gritty texture was noted. Suction curettage was then performed once more. Minimal bleeding was noted and that was removed with good hemostasis. The patient tolerated the procedure well. Sponge, lap, and needle counts were correct x2. The patient was taken to recovery in stable condition where she is to receive one dose of RhoGAM 300 mcg due to Rh-negative status. MARORAC / MODL /[id number] MTDD
== END 2020-10-10 17:19 | disposition home or self-care (01) ==
LOC: MW.SDS 13:52
PROVIDERS: ATTEND Obstetrics & Gynecology
DX: O03.4 Incomplete spontaneous abortion without complication (principal); I10 Essential (primary) hypertension; E66.9 Obesity, unspecified; Z01.812 Encounter for preprocedural laboratory examination; Z20.822 Contact with and (suspected) exposure to COVID-19; Z90.49 Acquired absence of other specified parts of digestive tract; Z98.890 Other specified postprocedural states; Z68.41 Body mass index [BMI] 40.0-44.9, adult; Z87.891 Personal history of nicotine dependence; Z88.8 Allergy status to other drugs, medicaments and biological substances; Z91.09 Other allergy status, other than to drugs and biological substances; Z88.5 Allergy status to narcotic agent
CPT/HCPCS: 36415; 59812; 86850; 86900; 86901; 87635; 88233; 88305; A9270; J1100; J1885; J2250; J2405; J2704; J2792; J3010; 01965; 36430; U0002

== ENCOUNTER 2021-03-08 12:05 | Day surgery (SDC) | payer BC ==
[~2021-03-08 12:05] MED LIST changes: +Glycopyrrolate 0.2 MG/ML SDV ONE; +Ketorolac 30 MG/ML SDV ONE; +Lidocaine 2% 5 ML SDV ONE; +Midazolam 1 MG/ML 2 ML SDV ONE; +Ondansetron 4 MG/2 ML SDV ONE; +Propofol 200 MG/20 ML SDV ONE; -ceFAZolin 2 GM in Premix Bag 1 BAG IV ONE; +fentaNYL 100 MCG/2 ML SDV ONE
[2021-03-08] MEDS ORDERED: Morphine 10 MG/ML Syringe IVPUSH PRN (12:41)
[2021-03-08] MEDS ORDERED: Ondansetron 4 MG/2 ML SDV IVPUSH PRN (12:41)
[2021-03-08] MEDS ORDERED: Naloxone 0.4 MG/ML Syringe IVPUSH PRN (12:41)
[2021-03-08] MEDS ORDERED: Albuterol 0.083% 2.5 MG/3 ML Neb Soln NEB PRN (12:41)
[2021-03-08] MEDS ORDERED: HYDROmorphone 2 MG/ML Syringe IVPUSH PRN (12:41)
[2021-03-08] MEDS ORDERED: Metoclopramide 10 MG/2 ML SDV IVPUSH PRN (12:41)
--- NOTE | 2021-03-08 12:41 | PCM.PREANE ---
Preanesthetic Assessment - Procedure Proposed Procedure: Suction D&C - Anesthesia/Transfusion/Family Hx Anesthesia History: Prior Anesthesia Without Reaction Type of Anesthesia Reaction: Excessive Nausea/Vomiting (does well with Scope patch) Family History of Anesthesia Reaction: No Transfusion History: No Prior Transfusion(s) Intubation History: Unknown - Review of Systems General: No Symptoms Pulmonary: No Symptoms (Smoker, 2 cig/day) Cardiovascular: No Symptoms (h/o HTN but currently no meds required.) Gastrointestinal: No Symptoms Neurological: No Symptoms Other: Reports: None (h/o kidney stones s/p Lithopripsy x3 none for greater than 10 years) - Physical Assessment NPO Status Date: 03/07/21 NPO Status Time: 23:00 Vital Signs: Last Vital Signs Temp 97.7 F 03/08/21 12:14 Pulse 103 H 03/08/21 12:14 Resp 16 03/08/21 12:14 BP 139/94 H 03/08/21 12:14 Pulse Ox 96 03/08/21 12:14 Height: 5 ft 2 in Weight: 111.13 kg (MORBID OBESITY) ASA Class: 3 Mental Status: Alert & Oriented x3 Airway Class: Mallampati = 3 Dentition: Reports: Normal Dentition Thyro-Mental Finger Breadths: 3 Mouth Opening Finger Breadths: 3 ROM/Head Extension: Full Lungs: Clear to Auscultation Cardiovascular: Regular Rate - Allergies Allergies/Adverse Reactions: Allergies Allergy/AdvReac Type Severity Reaction Status Date / Time acetaminophen [From Tylenol] Allergy Stomach Verified 03/07/21 12:49 Ache - Acknowledgements Anesthesia Type Planned: General Anesthesia Pt an Appropriate Candidate for the Planned Anesthesia: Yes Alternatives and Risks of Anesthesia Discussed w Pt/Guardian: Yes Pt/Guardian Understands and Agrees with Anesthesia Plan: Yes PreAnesthesia Questionnaire HEENT History: Reports: Other (See Below) Other HEENT History: wears glasses Cardiovascular History: Reports: Hypertension Respiratory History: Reports: Asthma, Other (See Below) Other Respiratory History: had exercised induced asthma as a teenager- has not used an inhaler for many years Gastrointestinal History: Reports: GERD Other Gastrointestinal History: occasional heartburn Genitourinary History: Reports: Renal Calculus, STD Other Genitourinary History: genital herpes 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: Musculoskeletal History: Reports: Fracture Other Musculoskeletal History: hx of fx arm as a child Neurological History: Reports: Migraines Psychiatric History: Reports: Anxiety, Depression, OCD, Panic Attack Endocrine/Metabolic History: Reports: Obesity/BMI 30+ Hematologic History: Reports: None Immunologic History: Reports: None Oncologic (Cancer) History: Reports: Basal Cell Carcinoma Other Oncologic History: removed from face Dermatologic History: Reports: Other (See Below) Other Dermatologic History: sensitive skin - Infectious Disease History Infectious Disease History: Reports: C-Difficile, Chicken Pox, Herpes Other Infectious Disease History: vaginal herpes - Past Surgical History Female Surgical History: Reports: Section, Lithotripsy/ESWL - SUBSTANCE USE Tobacco Use Status *Q: Light Tobacco User Tobacco Use Within Last Twelve Months: Cigarettes - HOME MEDS Home Medications: Home Meds Acetaminophen [Tylenol] 1 - 2 tab PO ASDIRECTED PRN 10/10/20 [History] Labetalol HCl [Labetalol] 100 mg PO DAILY PRN 10/10/20 [History] Melatonin 10 mg PO BEDTIME PRN 03/07/21 [History] valACYclovir HCl [Valtrex] 500 mg PO ASDIRECTED PRN 03/07/21 [History] - CURRENT (IN HOUSE) MEDS Current Meds: Current Medications Lactated Ringer's (Ringers, Lactated) 1,000 mls @ 100 mls/hr IV ASDIRECTED ORTEGA Discontinued Medications Fentanyl (Fentanyl 100 Mcg/2 Ml Sdv) Confirm Administered Dose 100 mcg .ROUTE .STK-MED ONE Stop: 03/08/21 11:43 Glycopyrrolate (Glycopyrrolate 0.2 Mg/Ml Sdv) Confirm Administered Dose 0.2 mg .ROUTE .STK-MED ONE Stop: 03/08/21 11:44 Ketorolac Tromethamine (Ketorolac 30 Mg/Ml Sdv) Confirm Administered Dose 30 mg .ROUTE .STK-MED ONE Stop: 03/08/21 11:44 Lidocaine (Lidocaine 2% 5 Ml Sdv) Confirm Administered Dose 5 ml .ROUTE .STK-MED ONE Stop: 03/08/21 11:44 Midazolam HCl (Midazolam 1 Mg/Ml 2 Ml Sdv) Confirm Administered Dose 2 mg .ROUTE .STK-MED ONE Stop: 03/08/21 11:43 Ondansetron HCl (Ondansetron 4 Mg/2 Ml Sdv) Confirm Administered Dose 4 mg .ROUTE .STK-MED ONE Stop: 03/08/21 11:44 Propofol (Propofol 200 Mg/20 Ml Sdv) Confirm Administered Dose 200 mg .ROUTE .STK-MED ONE Stop: 03/08/21 11:43
[2021-03-08] MEDS ORDERED: Scopolamine 1.5 MG Transdermal Patch TRDERM ONE (12:43)
[2021-03-08] MEDS ORDERED: Scopolamine 1.5 MG Transdermal Patch ONE (12:50)
[2021-03-08] MEDS ORDERED: Propofol 200 MG/20 ML SDV ONE (13:40)
[2021-03-08] MEDS ORDERED: fentaNYL 100 MCG/2 ML SDV ONE (13:41)
[2021-03-08] MEDS ORDERED: Oxytocin 10 Units/1 ML SDV ONE (13:50)
--- NOTE | 2021-03-08 14:06 | PCM.OPNOTE ---
- General Post-Op/Procedure Note Date of Surgery/Procedure: 03/08/21 Operative Procedure(s): Suction dilation and curettage Findings: 10 week sized anteverted uterus Pre Op Diagnosis: 1. Missed . 2. Rh negative Post-Op Diagnosis: 1. Missed . 2. Rh negative Anesthesia Technique: General LMA Primary Surgeon: Shani Conner Pathology: Products of conception Fluid Replacement, Intraop: 500 Output, Urine Amount: 20 EBL in mLs: 50 Complications: None known Condition: Good Free Text/Narrative:: Rhogam administered in PACU Dictation #[id number]
--- NOTE | 2021-03-08 14:16 | PCM.POSTAN ---
POST ANESTHESIA ASSESSMENT - MENTAL STATUS Mental Status: Alert - VITAL SIGNS Vital Signs: Last Vital Signs Temp 97.9 F 03/08/21 13:58 Pulse 100 03/08/21 14:09 Resp 16 03/08/21 14:09 BP 124/65 03/08/21 14:09 Pulse Ox 100 03/08/21 14:09 - RESPIRATORY Respiratory Status: Respiratory Rate WNL - CARDIOVASCULAR CV Status: Pulse Rate WNL - GASTROINTESTINAL GI Status: No Symptoms - POST OP HYDRATION Hydration Status: Adequate & Stable
--- NOTE | 2021-03-08 14:18 | PCM48HPAN ---
Post Anesthesia Note - EVALUATION WITHIN 48HRS OF ANESTHETIC Vital Signs in Normal Range: Yes Patient Participated in Evaluation: Yes Respiratory Function Stable: Yes Airway Patent: Yes Cardiovascular Function Stable: Yes Hydration Status Stable: Yes Pain Control Satisfactory: Yes Nausea and Vomiting Control Satisfactory: Yes Mental Status Recovered: Yes Vital Signs: Last Vital Signs Temp 97.9 F 03/08/21 13:58 Pulse 100 03/08/21 14:09 Resp 16 03/08/21 14:09 BP 124/65 03/08/21 14:09 Pulse Ox 100 03/08/21 14:09 - COMMENTS/OBSERVATIONS Free Text/Narrative:: Pt doing well post-op. VSS. No apparent anesthetic complications. Dr. Ivan Lee
[2021-03-08] MEDS: fentaNYL 100 MCG/2 ML SDV IVPUSH PRN ×2 (14:20→14:27)
[2021-03-08 14:44] VITALS: BP 114/53; PULSE 83
--- NOTE | 2021-03-09 06:07 | OR ---
SURGEON: ANTONIETA CONNER MD DATE OF PROCEDURE: 03/08/2021 PREOPERATIVE DIAGNOSIS: Missed . POSTOPERATIVE DIAGNOSIS: Missed . PROCEDURE: Suction dilation and curettage. PRIMARY SURGEON: Antonieta Conner MD ANESTHESIA: LMA. COMPLICATIONS: None known. ESTIMATED BLOOD LOSS: 50 mL. IV FLUIDS: 500 mL of crystalloid. URINE OUTPUT: 20 mL straight cath prior to procedure. FINDINGS: Ten-week size anteverted uterus. PATHOLOGY: Products of conception. INDICATION: The patient is a 30-year-old, 3, para 1-0-1-1, who presented to [facility] on 03/07/2021 with vaginal bleeding at approximately 12 weeks' gestation. Transvaginal ultrasound was performed and pole measured approximately 9 weeks' gestation, and no heart tones were noted, confirming diagnosis of missed . The patient desired to proceed with surgical management. DESCRIPTION OF PROCEDURE: The patient was taken to the operating room, where anesthesia was introduced. She was then prepped and draped in the dorsal lithotomy position. A bimanual exam was then performed. The bladder was then drained. An open-sided Graves speculum was then inserted into the vagina to visualize the cervix. A long Allis clamp was then used to grasp the cervix at 12 o'clock. The cervix was then serially dilated to 10 Hegar dilator. A #10 curved suction curette was advanced to the fundus. It was attached to suction and rotated to clear the products of conception. This was performed 3 additional times. A sharp curettage was then performed until a gritty texture was noted. The suction curettage was then performed once more. Minimal bleeding was noted. The long Allis clamp was then removed with good hemostasis. The patient tolerated the procedure well. Sponge, lap, and needle counts were correct x2. The patient received RhoGAM in PACU due to Rh-negative status. The patient to Recovery in stable condition. MARLENEORAC / MODL /[id number] GAIL
== END 2021-03-08 15:02 | disposition home or self-care (01) ==
LOC: MW.SDS 12:05
PROVIDERS: ATTEND Obstetrics & Gynecology
DX: O02.1 Missed abortion (principal); O26.851 Spotting complicating pregnancy, first trimester; N89.8 Other specified noninflammatory disorders of vagina; Z67.91 Unspecified blood type, Rh negative
CPT/HCPCS: 36415; 59820; 85027; 86850; 86900; 86901; 88233; 88305; 90384; A9270; J1885; J2250; J2370; J2590; J2704; J3010; J3490; J7120; 01965; J0131; J2405; J2790

== ENCOUNTER 2021-03-08 21:30 | Emergency (ER) | payer BC ==
[2021-03-08] MEDS ORDERED: Ketorolac 15 MG/ML SDV IVPUSH ONE (21:50)
[2021-03-08] MEDS ORDERED: Sodium Chloride 0.9% 1,000 ML IV ONE (21:50)
--- NOTE | 2021-03-08 21:56 | EDM.PDOC ---
ED HPI GENERAL MEDICAL PROBLEM - General Chief Complaint: Fever Stated Complaint: FEVER Time Seen by Provider: 03/08/21 21:31 Source of Information: Reports: Patient, Old Records History Limitations: Reports: No Limitations - History of Present Illness INITIAL COMMENTS - FREE TEXT/NARRATIVE: Patient is a 30-year-old female who recently today had a D&C for a spontaneous . She went home and states around 4 PM she developed a fever. Her [facility] doctor told her to try some Tylenol the fever not get better told to come in. Patient states that she has a fevers about 100.5 at home. States that she still having some vaginal bleeding but is normal when she had her last procedure she had similar bleeding. She reports abdominal cramps that she had since the spontaneous but no abdominal pain no nausea vomiting fevers or chills. She did report some sore throat before the procedure and states that her son has strep throat. She denies any coughing rashes or other complaints. 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 Abdomen Pain Score (Numeric/FACES): 4 - Related Data Allergies Allergy/AdvReac Type Severity Reaction Status Date / Time acetaminophen [From Tylenol] Allergy Stomach Verified 03/08/21 21:44 Ache Home Meds: Home Meds Acetaminophen [Tylenol] 1 - 2 tab PO ASDIRECTED PRN 10/10/20 [History] Labetalol HCl [Labetalol] 100 mg PO DAILY PRN 10/10/20 [History] Melatonin 10 mg PO BEDTIME PRN 03/07/21 [History] valACYclovir HCl [Valtrex] 500 mg PO ASDIRECTED PRN 03/07/21 [History] oxyCODONE 5 mg PO Q4HR PRN #10 tab 03/08/21 [Rx] Past Medical History HEENT History: Reports: Other (See Below) Other HEENT History: wears glasses Cardiovascular History: Reports: Hypertension Respiratory History: Reports: Asthma, Other (See Below) Other Respiratory History: had exercised induced asthma as a teenager- has not used an inhaler for many years Gastrointestinal History: Reports: GERD Other Gastrointestinal History: occasional heartburn Genitourinary History: Reports: Renal Calculus, STD Other Genitourinary History: genital herpes 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: Musculoskeletal History: Reports: Fracture Other Musculoskeletal History: hx of fx arm as a child Neurological History: Reports: Migraines Psychiatric History: Reports: Anxiety, Depression, OCD, Panic Attack Endocrine/Metabolic History: Reports: Obesity/BMI 30+ Hematologic History: Reports: None Immunologic History: Reports: None Oncologic (Cancer) History: Reports: Basal Cell Carcinoma Other Oncologic History: removed from face Dermatologic History: Reports: Other (See Below) Other Dermatologic History: sensitive skin - Infectious Disease History Infectious Disease History: Reports: C-Difficile, Chicken Pox, Herpes Other Infectious Disease History: vaginal herpes - Past Surgical History Female Surgical History: Reports: Section, Lithotripsy/ESWL Social & Family History - Family History Family Medical History: No Pertinent Family History HEENT: Reports: None Cardiac: Reports: None Respiratory: Reports: Asthma GI: Reports: Irritable Bowel Syndrome : Reports: Renal Calculus OBGYN: Reports: Musculoskeletal: Reports: Arthritis, Back pain, Chronic Neurological: Reports: Cerebral Aneurysms, Migraines, TIA Psychiatric: Reports: Anxiety, Depression Endocrine/Metabolic: Reports: Diabetes, type II Hematologic: Reports: None Immunologic: Reports: None Dermatologic: Reports: None Oncologic: Reports: Colon - Caffeine Use Caffeine Use: Reports: Coffee Other Caffeine Use: 1-2 cups daily ED ROS GENERAL - Review of Systems Review Of Systems: See Below Constitutional: Reports: No Symptoms HEENT: Reports: No Symptoms Respiratory: Reports: No Symptoms Cardiovascular: Reports: No Symptoms Endocrine: Reports: No Symptoms GI/Abdominal: Reports: Abdominal Pain : Reports: No Symptoms Musculoskeletal: Reports: No Symptoms Skin: Reports: No Symptoms Neurological: Reports: No Symptoms Psychiatric: Reports: No Symptoms Hematologic/Lymphatic: Reports: No Symptoms Immunologic: Reports: No Symptoms ED EXAM, GENERAL - Physical Exam Exam: See Below Exam Limited By: No Limitations General Appearance: Alert, WD/WN, No Apparent Distress Eye Exam: Bilateral Eye: EOMI, PERRL Head: Atraumatic, Normocephalic Respiratory/Chest: No Respiratory Distress, Lungs Clear, Normal Breath Sounds Cardiovascular: Normal Peripheral Pulses, Regular Rate, Rhythm GI/Abdominal: Normal Bowel Sounds, Soft, Non-Tender Extremities: Normal Inspection Neurological: Alert, Oriented, CN II-XII Intact, Normal Cognition, Normal Gait Course - Vital Signs Last Recorded V/S: Last Vital Signs Temp 99.5 F 03/08/21 22:50 Pulse 84 03/09/21 00:00 Resp 18 03/08/21 23:51 BP 115/67 03/08/21 23:51 Pulse Ox 96 03/08/21 23:51 - Orders/Labs/Meds Orders: Active Orders 24 hr Category Date Time Status CULTURE BLOOD [BC] Stat Lab 03/08/21 21:59 Received CULTURE BLOOD [BC] Stat Lab 03/08/21 22:05 Received Blood Culture x2 Reflex Set [OM.PC] Stat Oth 03/08/21 21:51 Ordered Labs: Laboratory Tests 03/08/21 03/08/21 03/08/21 Range/Units 21:48 21:48 21:48 WBC 12.62 H (4.0-11.0) K/uL RBC 4.55 (4.30-5.90) M/uL Hgb 13.3 (12.0-16.0) g/dL Hct 39.0 (36.0-46.0) % MCV 85.7 (80.0-98.0) fL MCH 29.2 (27.0-32.0) pg MCHC 34.1 (31.0-37.0) g/dL RDW Std Deviation 40.3 (28.0-62.0) fl RDW Coeff of [place] 13 (11.0-15.0) % Plt Count 310 (150-400) K/uL MPV 9.70 (7.40-12.00) fL Neut % (Auto) 79.0 (48.0-80.0) % Lymph % (Auto) 10.7 L (16.0-40.0) % [place] % (Auto) 10.1 (0.0-15.0) % Eos % (Auto) 0.1 (0.0-7.0) % Baso % (Auto) 0.1 (0.0-1.5) % Neut # (Auto) 10.0 H (1.4-5.7) K/uL Lymph # (Auto) 1.4 (0.6-2.4) K/uL [place] # (Auto) 1.3 H (0.0-0.8) K/uL Eos # (Auto) 0.0 (0.0-0.7) K/uL Baso # (Auto) 0.0 (0.0-0.1) K/uL Nucleated RBC % 0.0 /100WBC Nucleated RBCs # 0 K/uL INR APTT (18.6-31.3) SEC Sodium 139 (136-145) mmol/L Potassium 3.9 (3.5-5.1) mmol/L Chloride 103 (98-107) mmol/L Carbon Dioxide 20.4 L (21.0-32.0) mmol/L BUN 6 L (7.0-18.0) mg/dL Creatinine 0.8 (0.6-1.0) mg/dL Est Cr Clr Drug Dosing 81.33 mL/min Estimated GFR (MDRD) > 60.0 ml/min Glucose 137 H (74-106) mg/dL Lactic Acid (0.4-2.0) mmol/L Calcium 9.0 (8.5-10.1) mg/dL Phosphorus 4.5 (2.6-4.7) mg/dL Magnesium 2.0 (1.8-2.4) mg/dL Total Bilirubin 0.5 (0.2-1.0) mg/dL AST 20 (15-37) IU/L ALT 31 (14-63) IU/L Alkaline Phosphatase 58 (46-116) U/L Creatine Kinase 62 (26-308) U/L Total Protein 6.6 (6.4-8.2) g/dL Albumin 3.4 (3.4-5.0) g/dL Globulin 3.2 (2.6-4.0) g/dL Albumin/Globulin Ratio 1.1 (0.9-1.6) Lipase 81 (73-393) U/L Urine Color ORANGE Urine Appearance SLT CLOUDY Urine pH 6.5 (5.0-8.0) Ur Specific [place] 1.010 (1.001-1.035) Urine Protein TRACE H (NEGATIVE) mg/dL Urine Glucose (UA) NEGATIVE (NEGATIVE) mg/dL Urine Ketones NEGATIVE (NEGATIVE) mg/dL Urine Occult Blood LARGE H (NEGATIVE) Urine Nitrite NEGATIVE (NEGATIVE) Urine Bilirubin NEGATIVE (NEGATIVE) Urine Urobilinogen 0.2 (<2.0) EU/dL Ur Leukocyte Esterase SMALL H (NEGATIVE) Urine RBC 60-70 (0-2/HPF) Urine WBC 1-4 (0-5/HPF) Ur Epithelial Cells MODERATE (NONE-FEW) Urine Bacteria FEW (NEGATIVE) Group A Strep (PCR) (NOT DETECT) 03/08/21 03/08/21 03/08/21 Range/Units 21:48 21:50 22:11 WBC (4.0-11.0) K/uL RBC (4.30-5.90) M/uL Hgb (12.0-16.0) g/dL Hct (36.0-46.0) % MCV (80.0-98.0) fL MCH (27.0-32.0) pg MCHC (31.0-37.0) g/dL RDW Std Deviation (28.0-62.0) fl RDW Coeff of [place] (11.0-15.0) % Plt Count (150-400) K/uL MPV (7.40-12.00) fL Neut % (Auto) (48.0-80.0) % Lymph % (Auto) (16.0-40.0) % [place] % (Auto) (0.0-15.0) % Eos % (Auto) (0.0-7.0) % Baso % (Auto) (0.0-1.5) % Neut # (Auto) (1.4-5.7) K/uL Lymph # (Auto) (0.6-2.4) K/uL [place] # (Auto) (0.0-0.8) K/uL Eos # (Auto) (0.0-0.7) K/uL Baso # (Auto) (0.0-0.1) K/uL Nucleated RBC % /100WBC Nucleated RBCs # K/uL INR 1.00 APTT 27.4 (18.6-31.3) SEC Sodium (136-145) mmol/L Potassium (3.5-5.1) mmol/L Chloride (98-107) mmol/L Carbon Dioxide (21.0-32.0) mmol/L BUN (7.0-18.0) mg/dL Creatinine (0.6-1.0) mg/dL Est Cr Clr Drug Dosing mL/min Estimated GFR (MDRD) ml/min Glucose (74-106) mg/dL Lactic Acid 1.8 (0.4-2.0) mmol/L Calcium (8.5-10.1) mg/dL Phosphorus (2.6-4.7) mg/dL Magnesium (1.8-2.4) mg/dL Total Bilirubin (0.2-1.0) mg/dL AST (15-37) IU/L ALT (14-63) IU/L Alkaline Phosphatase (46-116) U/L Creatine Kinase (26-308) U/L Total Protein (6.4-8.2) g/dL Albumin (3.4-5.0) g/dL Globulin (2.6-4.0) g/dL Albumin/Globulin Ratio (0.9-1.6) Lipase (73-393) U/L Urine Color Urine Appearance Urine pH (5.0-8.0) Ur Specific [place] (1.001-1.035) Urine Protein (NEGATIVE) mg/dL Urine Glucose (UA) (NEGATIVE) mg/dL Urine Ketones (NEGATIVE) mg/dL Urine Occult Blood (NEGATIVE) Urine Nitrite (NEGATIVE) Urine Bilirubin (NEGATIVE) Urine Urobilinogen (<2.0) EU/dL Ur Leukocyte Esterase (NEGATIVE) Urine RBC (0-2/HPF) Urine WBC (0-5/HPF) Ur Epithelial Cells (NONE-FEW) Urine Bacteria (NEGATIVE) Group A Strep (PCR) NOT DETECTED (NOT DETECT) Meds: Medications Discontinued Medications Generic Name Dose Route Start Last Admin Trade Name Freq PRN Reason Stop Dose Admin Sodium Chloride 1,000 mls @ 999 mls/hr 03/08/21 21:50 03/08/21 22:16 Normal Saline IV 03/08/21 22:50 999 mls/hr .BOLUS ONE Administration Iopamidol 100 ml 03/08/21 23:49 03/08/21 23:49 Iopamidol 755 Mg/Ml 500 Ml Multipack Bottle IVPUSH 03/08/21 23:50 100 ml ONETIME STA Administration Ketorolac Tromethamine 15 mg 03/08/21 21:50 03/08/21 22:16 Ketorolac 15 Mg/Ml Sdv IVPUSH 03/08/21 21:51 15 mg ONETIME ONE Administration - Re-Assessments/Exams Free Text/Narrative Re-Assessment/Exam: 03/09/21 00:[address] PE is negative. Patient had some tachycardia and O2 sat was 95% on room air which prompted us to do the CT PE. Patient has no pneumonia on x-ray. Patient UA did show few bacteria but could be contaminated from the blood will wait and see cultures before start antibiotics. Patient will be discharged follow-up with [facility]. Departure - Departure Time of Disposition: 00:28 Disposition: Home, Self-Care 01 Condition: Good Clinical Impression: Postoperative fever - Discharge Information *PRESCRIPTION DRUG MONITORING PROGRAM REVIEWED*: Not Applicable *COPY OF PRESCRIPTION DRUG MONITORING REPORT IN PATIENT JIE: Not Applicable Instructions: Fever, Adult, [id number] Referrals: Shani Conner MD [Primary Care Provider] - Forms: ED Department Discharge Additional Instructions: The following information is given to patients seen in the emergency department who are being discharged to home. This information is to outline your options for follow-up care. We provide all patients seen in our emergency department with a follow-up referral. The need for follow-up, as well as the timing and circumstances, are variable depending upon the specifics of your emergency department visit. If you don't have a primary care physician on staff, we will provide you with a referral. We always advise you to contact your personal physician following an emergency department visit to inform them of the circumstance of the visit and for follow-up with them and/or the need for any referrals to a consulting specialist. The emergency department will also refer you to a specialist when appropriate. This referral assures that you have the opportunity for follow-up care with a specialist. All of these measure are taken in an effort to provide you with optimal care, which includes your follow-up. Under all circumstances we always encourage you to contact your private elian who remains a resource for coordinating your care. When calling for follow-up care, please make the office aware that this follow-up is from your recent emergency room visit. If for any reason you are refused follow-up, please contact the [facility] Emergency Department at and asked to speak to the emergency department charge nurse. Please follow up with your primary care physician. If you do not have a primary care physician, see below: [facility] [address] [place] [id number] [facility] [address] [place] [id number] You were seen today for a fever after your procedure. We did x-rays a CT scan of your chest labs and UA. He had no clots in your lungs you do have elevated white count but no source of infection. You told you have some bacteria in your urine but we will wait to pursue the culture grows. If you develop any other symptoms or complaints please return to the ED otherwise follow-up with [facility]. Sepsis Event Note (ED) - Evaluation Sepsis Screening Result: No Definite Risk - Focused Exam Vital Signs: Vital Signs Temp Pulse Resp BP Pulse Ox 03/09/21 00:00 84 03/08/21 23:51 97 18 115/67 96 03/08/21 22:50 99.5 F 103 H 18 99/48 L 96 03/08/21 21:40 100.5 F 145 H 18 131/80 96 - My Orders Last 24 Hours: My Active Orders 03/08/21 21:51 Blood Culture x2 Reflex Set [OM.PC] Stat 03/08/21 21:59 CULTURE BLOOD [BC] Stat 03/08/21 22:05 CULTURE BLOOD [BC] Stat - Assessment/Plan Last 24 Hours: My Active Orders 03/08/21 21:51 Blood Culture x2 Reflex Set [OM.PC] Stat 03/08/21 21:59 CULTURE BLOOD [BC] Stat 03/08/21 22:05 CULTURE BLOOD [BC] Stat Plan: Patient is a 30-year-old female who is had a D&C today presents today for fever. Patient's tachycardia to 140 has a slight fever of 100.5. Will be given antipyretic IV fluids labs blood cultures strep throat and reassess
--- NOTE | 2021-03-08 22:05 | CR ---
For Patients: As a result of the Cures Act, medical imaging exams and procedure reports are released immediately into your electronic medical record. You may view this report before your referring provider. If you have questions, please contact your health care provider. INDICATION: Fever TECHNIQUE: Chest radiograph 1 view COMPARISON: 05/25/2020 FINDINGS: Mediastinum: The mediastinum is normal in appearance. The heart silhouette is normal in size and morphology. Lung: Both lungs are unremarkable in appearance. No sign of pleural effusion seen. No pneumothorax is identified. Bone and Soft tissue: Unremarkable for age. IMPRESSION: 1. No acute cardiopulmonary disease is seen. Dictated by: Chris Roper MD @ 03/08/2021 22:04:20 (Electronically Signed)
[2021-03-08 22:52] LABS: BLOOD UREA NITROGEN,BUN 6 mg/dL (7.0-18.0); CARBON DIOXIDE,CO2 20.4 mmol/L (21.0-32.0); CHLORIDE,CL 103 mmol/L (98-107); GLUCOSE RANDOM 137 mg/dL (74-106); LIPASE 81 U/L (73-393); POTASSIUM,K 3.9 mmol/L (3.5-5.1); SODIUM,NA 139 mmol/L (136-145)
[2021-03-08] MEDS ORDERED: Iopamidol 755 MG/ML 500 ML Multipack Bottle IVPUSH STA (23:49)
--- NOTE | 2021-03-09 00:17 | CT ---
For Patients: As a result of the Century Cures Act, medical imaging exams and procedure reports are released immediately into your electronic medical record. You may view this report before your referring provider. If you have questions, please contact your health care provider. INDICATION: Fever, tachycardia, recent surgery TECHNIQUE: CT chest with i.v. contrast using pulmonary angiographic technique. Coronal and sagittal reformats were obtained. CONTRAST: 100 mL Isovue 370 COMPARISON: None FINDINGS: Cardiovascular: The pulmonary arteries are unremarkable in enhancement with no evidence of acute pulmonary embolism. The heart has an unremarkable appearance and size. No sign of aneurysm in the thoracic aorta. An aberrant right subclavian artery is noted. Mediastinum: No mass or adenopathy seen. Lung: Moderate discoid and ground-glass atelectasis are present in both lower lobes. Pleura and pericardium: No sign of pleural effusion seen. No significant pericardial effusion is present. Chest wall and axilla: No mass or adenopathy seen. Bone: Unremarkable for age. Upper abdomen: Unremarkable. IMPRESSION: 1. No CT evidence of acute pulmonary emboli seen. Dictated by Chris Roper MD @ 03/09/2021 12:15:56 AM Please note that all CT scans at this facility use dose modulation, iterative reconstruction, and/or weight-based dosing when appropriate to reduce radiation dose to as low as reasonably achievable. Dictated by: Chris Roper MD @ 03/09/2021 00:16:12 (Electronically Signed)
[2021-03-09 00:41] VITALS: BP 110/70; PULSE 86
== END 2021-03-09 00:41 | disposition home or self-care (01) ==
LOC: MW.ED 21:30
DX: R50.82 Postprocedural fever (principal); I10 Essential (primary) hypertension; J45.909 Unspecified asthma, uncomplicated; E66.9 Obesity, unspecified; Z68.41 Body mass index [BMI] 40.0-44.9, adult; Z88.6 Allergy status to analgesic agent; Z79.899 Other long term (current) drug therapy
CPT/HCPCS: 36415; 71045; 71275; 80053; 81001; 82550; 83605; 83690; 83735; 84100; 85025; 85610; 85730; 87040; 87651; 96374; 99284; J1885; J7030; Q9967

== ENCOUNTER 2021-03-15 03:17 | Emergency (ER) | payer BC ==
[2021-03-15] MEDS ORDERED: Sodium Chloride 0.9% 10 ML Syringe FLUSH PRN (03:28)
[2021-03-15] MEDS ORDERED: Sodium Chloride 0.9% 2.5 ML Syringe FLUSH PRN (03:28)
[2021-03-15] MEDS ORDERED: Sodium Chloride 0.9% 1,000 ML IV ONE (04:03)
[2021-03-15] MEDS ORDERED: Ketorolac 15 MG/ML SDV IVPUSH ONE ×2 (04:03→05:55)
--- NOTE | 2021-03-15 04:08 | EDM.PDOC ---
ED HPI GENERAL MEDICAL PROBLEM - General Chief Complaint: Abdominal Pain Stated Complaint: EXTREME BLOOD LOSS (RECENT MISCARRIAGE AND D&C) Time Seen by Provider: 03/15/21 03:27 Source of Information: Reports: Patient - History of Present Illness INITIAL COMMENTS - FREE TEXT/NARRATIVE: History of present illness: 30-year-old female presenting with lower abdominal pain, cramping and ongoing/worsening vaginal bleeding. 8 days ago she had a D&C after being diagnosed with spontaneous miscarriage the day before. The bleeding had initially improved and has now worsened and has been worsening over the last few days. She is now continuously bleeding and passing large clots. She has some cramping and pain in the low back which she reports feel similar to when she was in labor. No nausea or vomiting. She was seen several days after the D&C with fevers and concern for sepsis. Had a negative work-up including negative CT angio of the chest. She then developed a rash and her PCP thought she had [id number]-mouth disease. Since then she has been mostly laying around in bed until the last couple days when she started to finally feel better and was able to get up and around. Review of systems: As per history of present illness and below otherwise all systems reviewed and negative. Past medical history: As per history of present illness and as reviewed below otherwise noncontributory. Surgical history: As per history of present illness and as reviewed below otherwise noncontributory. Social history: No reported history of drug or alcohol abuse. Nonsmoker Family history: As per history of present illness and as reviewed below otherwise noncontributory. Physical exam: GEN: no acute distress, well appearing HEENT: Atraumatic, normocephalic, mucous membranes moist, Neck: supple, nontender, trachea midline. Lungs: No respiratory distress. Heart: RRR Abdomen: Soft, nondistended, mild lower abdominal tenderness. /pelvic: With DAYDAY Shahid art sales consultant. Ongoing bleeding/oozing with occasional large clots passage. Cervical os appears open. No adnexal fullness. No erythema. No vaginal discharge. Back: nontender Extremities: Atraumatic. Neurovascularly intact. Neuro: Awake, alert, oriented. Neuro Exam nonfocal. Skin: warm, dry, no lesions Diagnostics: Labs, UA, hCG quant, ABO Rh, transvaginal ultrasound H/H stable from prior ER visit. White count minimally elevated. UA with mo derate blood. hCG low. Transvaginal ultrasound: INDICATION: Dilatation and curettage 03-08-2021, now heavy bleeding with clots TECHNIQUE: Ultrasound pelvis transabdominal and transvaginal. Endovaginal imaging was performed to better visualize the endometrium and ovaries. Real-time gomez scale sonographic images with spectral and color Doppler imaging of the ovaries were obtained. COMPARISON: None FINDINGS: Uterus: 9.4 x 6 x 5.5 cm. There is irregular hypoechoic fluid present within the central uterus. On endovaginal scanning, the fluid has not irregular margin with the myometrium and may be located posterior to the echogenic endometrial complex that measures 2.5 cm. There is irregular thinning of the myometrium along the posterior fundus. Normal echotexture of the myometrium noted with no masses are seen. Endometrium: The endometrial complex appears to be located anterior to this fluid collection measuring 2.5 cm. Right ovary: 2 x 1.3 x 2.4 cm. The right ovary is normal in appearance and echotexture. No Doppler examination of the right ovary submitted. Left ovary: 2 x 2.1 x 2.4 cm. The left ovary is normal in appearance and echotexture. Arterial blood flow seen within the left ovary. Cul-de-sac: No significant ascites noted. IMPRESSIONS: 1. There is complex fluid within the uterus with an irregular margin and possible extension into the myometrium is concerning for myometrial injury and dehiscence. 2. The endometrial complex appears to be located anterior to this fluid collection measuring 2.5 cm. Retained products of conception cannot be entirely excluded. Therapeutics: IV fluids/Toradol, Cytotec, acetaminophen MDM: Ongoing/worsening bleeding, concern for retained products of conception. H&H stable. Ultrasound performed. GOVERNOR ASSEMBLER [employer]AUL[employer] reviewed images and does not feel that ultrasound shows signs of retained products of conception or myometrial injury. Per GOVERNOR ASSEMBLER HYDRAULIC, patient stable for outpatient follow-up in their office tomorrow. Impression: Ongoing vaginal bleeding after D&C/spontaneous miscarriage Plan: Cytotec. Outpatient GOVERNOR ASSEMBLER HYDRAULIC follow-up in 24 hours. Return to ER if any worsening of symptoms. Definitive disposition and diagnosis as appropriate pending reevaluation and review of above. Abdomen Pain Score (Numeric/FACES): 9 - Related Data Allergies Allergy/AdvReac Type Severity Reaction Status Date / Time acetaminophen [From Tylenol] Allergy Stomach Verified 03/15/21 03:27 Ache Home Meds: Home Meds Acetaminophen [Tylenol] 1 - 2 tab PO ASDIRECTED PRN 10/10/20 [History] Labetalol HCl [Labetalol] 100 mg PO DAILY PRN 10/10/20 [History] Melatonin 10 mg PO BEDTIME PRN 03/07/21 [History] valACYclovir HCl [Valtrex] 500 mg PO ASDIRECTED PRN 03/07/21 [History] oxyCODONE 5 mg PO Q4HR PRN #10 tab 03/08/21 [Rx] Past Medical History HEENT History: Reports: None Other HEENT History: wears glasses Cardiovascular History: Reports: Hypertension Respiratory History: Reports: Asthma Other Respiratory History: had exercised induced asthma as a teenager- has not used an inhaler for many years Gastrointestinal History: Reports: GERD Other Gastrointestinal History: occasional heartburn Genitourinary History: Reports: Renal Calculus, STD Other Genitourinary History: genital herpes [employer]OR [employer]SEM[employer] History: Reports: Musculoskeletal History: Reports: Fracture Other Musculoskeletal History: hx of fx arm as a child Neurological History: Reports: Migraines Psychiatric History: Reports: Anxiety, Depression, OCD, Panic Attack Endocrine/Metabolic History: Reports: None, Obesity/BMI 30+ Insulin Pump Model and New Accounts Representative: None Hematologic History: Reports: None Immunologic History: Reports: None Oncologic (Cancer) History: Reports: Basal Cell Carcinoma Other Oncologic History: removed from face Dermatologic History: Reports: None Other Dermatologic History: sensitive skin - Infectious Disease History Infectious Disease History: Reports: C-Difficile, Chicken Pox, Herpes Other Infectious Disease History: vaginal herpes - Past Surgical History Head Surgeries/Procedures: Reports: None HEENT Surgical History: Reports: Tonsillectomy Cardiovascular Surgical History: Reports: None Respiratory Surgical History: Reports: None GI Surgical History: Reports: Cholecystectomy Female Surgical History: Reports: Section, Lithotripsy/ESWL Endocrine Surgical History: Reports: None Neurological Surgical History: Reports: None Musculoskeletal Surgical History: Reports: None Oncologic Surgical History: Reports: None Dermatological Surgical History: Reports: Skin Biopsy Social & Family History - Family History Family Medical History: No Pertinent Family History HEENT: Reports: None Cardiac: Reports: None Respiratory: Reports: Asthma GI: Reports: Irritable Bowel Syndrome : Reports: Renal Calculus OBGYN: Reports: Musculoskeletal: Reports: Arthritis, Back pain, Chronic Neurological: Reports: Cerebral Aneurysms, Migraines, TIA Psychiatric: Reports: Anxiety, Depression Endocrine/Metabolic: Reports: Diabetes, type II Hematologic: Reports: None Immunologic: Reports: None Dermatologic: Reports: None Oncologic: Reports: Colon - Caffeine Use Caffeine Use: Reports: Coffee Other Caffeine Use: 1-2 cups daily - Recreational Drug Use Recreational Drug Use: No ED ROS GENERAL - Review of Systems Review Of Systems: See Below (See dictation) ED EXAM, GENERAL - Physical Exam Exam: See Below (See dictation) Course - Vital Signs Last Recorded V/S: Last Vital Signs Temp 97.7 F 03/15/21 06:15 Pulse 62 03/15/21 06:15 Resp 18 03/15/21 06:15 BP 130/87 03/15/21 06:15 Pulse Ox 97 03/15/21 06:15 - Orders/Labs/Meds Orders: Active Orders 24 hr Category Date Time Status Saline Lock Insert [OM.PC] Stat Oth 03/15/21 03:28 Ordered Labs: Laboratory Tests 03/15/21 03/15/21 03/15/21 Range/Units 03:35 03:40 03:40 WBC 11.68 H (4.0-11.0) K/uL RBC 4.40 (4.30-5.90) M/uL Hgb 12.7 (12.0-16.0) g/dL Hct 38.0 (36.0-46.0) % MCV 86.4 (80.0-98.0) fL MCH 28.9 (27.0-32.0) pg MCHC 33.4 (31.0-37.0) g/dL RDW Std Deviation 39.7 (28.0-62.0) fl RDW Coeff of Talya 13 (11.0-15.0) % Plt Count 463 H (150-400) K/uL MPV 9.50 (7.40-12.00) fL Neut % (Auto) 70.1 (48.0-80.0) % Lymph % (Auto) 21.7 (16.0-40.0) % [place] % (Auto) 8.1 (0.0-15.0) % Eos % (Auto) 0.0 (0.0-7.0) % Baso % (Auto) 0.1 (0.0-1.5) % Neut # (Auto) 8.2 H (1.4-5.7) K/uL Lymph # (Auto) 2.5 H (0.6-2.4) K/uL [place] # (Auto) 1.0 H (0.0-0.8) K/uL Eos # (Auto) 0.0 (0.0-0.7) K/uL Baso # (Auto) 0.0 (0.0-0.1) K/uL Nucleated RBC % 0.0 /100WBC Nucleated RBCs # 0 K/uL Sodium 140 (136-145) mmol/L Potassium 4.6 (3.5-5.1) mmol/L Chloride 103 (98-107) mmol/L Carbon Dioxide 27.7 (21.0-32.0) mmol/L BUN 16 (7.0-18.0) mg/dL Creatinine 0.9 (0.6-1.0) mg/dL Est Cr Clr Drug Dosing 72.29 mL/min Estimated GFR (MDRD) > 60.0 ml/min Glucose 117 H (74-106) mg/dL Calcium 9.1 (8.5-10.1) mg/dL Total Bilirubin 0.3 (0.2-1.0) mg/dL AST 15 (15-37) IU/L ALT 28 (14-63) IU/L Alkaline Phosphatase 61 (46-116) U/L Total Protein 7.3 (6.4-8.2) g/dL Albumin 3.7 (3.4-5.0) g/dL Globulin 3.6 (2.6-4.0) g/dL Albumin/Globulin Ratio 1.0 (0.9-1.6) HCG, Quant 45.0 mIU/mL Urine Color RED Urine Appearance CLOUDY Urine pH 7.0 (5.0-8.0) Ur Specific [place] 1.020 (1.001-1.035) Urine Protein 100 H (NEGATIVE) mg/dL Urine Glucose (UA) NEGATIVE (NEGATIVE) mg/dL Urine Ketones TRACE H (NEGATIVE) mg/dL Urine Occult Blood LARGE H (NEGATIVE) Urine Nitrite POSITIVE H (NEGATIVE) Urine Bilirubin NEGATIVE (NEGATIVE) Urine Urobilinogen 1.0 (<2.0) EU/dL Ur Leukocyte Esterase MODERATE H (NEGATIVE) Urine RBC TOO NUMEROUS TO CT H (0-2/HPF) Urine WBC 5-10 (0-5/HPF) Ur Epithelial Cells FEW (NONE-FEW) Urine Bacteria FEW (NEGATIVE) Blood Type 03/15/21 Range/Units 03:40 WBC (4.0-11.0) K/uL RBC (4.30-5.90) M/uL Hgb (12.0-16.0) g/dL Hct (36.0-46.0) % MCV (80.0-98.0) fL MCH (27.0-32.0) pg MCHC (31.0-37.0) g/dL RDW Std Deviation (28.0-62.0) fl RDW Coeff of Talya (11.0-15.0) % Plt Count (150-400) K/uL MPV (7.40-12.00) fL Neut % (Auto) (48.0-80.0) % Lymph % (Auto) (16.0-40.0) % [place] % (Auto) (0.0-15.0) % Eos % (Auto) (0.0-7.0) % Baso % (Auto) (0.0-1.5) % Neut # (Auto) (1.4-5.7) K/uL Lymph # (Auto) (0.6-2.4) K/uL [place] # (Auto) (0.0-0.8) K/uL Eos # (Auto) (0.0-0.7) K/uL Baso # (Auto) (0.0-0.1) K/uL Nucleated RBC % /100WBC Nucleated RBCs # K/uL Sodium (136-145) mmol/L Potassium (3.5-5.1) mmol/L Chloride (98-107) mmol/L Carbon Dioxide (21.0-32.0) mmol/L BUN (7.0-18.0) mg/dL Creatinine (0.6-1.0) mg/dL Est Cr Clr Drug Dosing mL/min Estimated GFR (MDRD) ml/min Glucose (74-106) mg/dL Calcium (8.5-10.1) mg/dL Total Bilirubin (0.2-1.0) mg/dL AST (15-37) IU/L ALT (14-63) IU/L Alkaline Phosphatase (46-116) U/L Total Protein (6.4-8.2) g/dL Albumin (3.4-5.0) g/dL Globulin (2.6-4.0) g/dL Albumin/Globulin Ratio (0.9-1.6) HCG, Quant mIU/mL Urine Color Urine Appearance Urine pH (5.0-8.0) Ur Specific [place] (1.001-1.035) Urine Protein (NEGATIVE) mg/dL Urine Glucose (UA) (NEGATIVE) mg/dL Urine Ketones (NEGATIVE) mg/dL Urine Occult Blood (NEGATIVE) Urine Nitrite (NEGATIVE) Urine Bilirubin (NEGATIVE) Urine Urobilinogen (<2.0) EU/dL Ur Leukocyte Esterase (NEGATIVE) Urine RBC (0-2/HPF) Urine WBC (0-5/HPF) Ur Epithelial Cells (NONE-FEW) Urine Bacteria (NEGATIVE) Blood Type A NEGATIVE Meds: Medications Discontinued Medications Generic Name Dose Route Start Last Admin Trade Name Freq PRN Reason Stop Dose Admin Acetaminophen 1,000 mg 03/15/21 05:54 03/15/21 06:02 Acetaminophen 500 Mg Tab PO 03/15/21 05:55 1,000 mg ONETIME ONE Administration Sodium Chloride 1,000 mls @ 999 mls/hr 03/15/21 04:03 03/15/21 04:13 Normal Saline IV 03/15/21 05:03 999 mls/hr .Bolus ONE Administration Ketorolac Tromethamine 15 mg 03/15/21 04:03 03/15/21 04:13 Ketorolac 15 Mg/Ml Sdv IVPUSH 03/15/21 04:04 15 mg ONETIME ONE Administration Ketorolac Tromethamine 15 mg 03/15/21 05:55 03/15/21 06:01 Ketorolac 15 Mg/Ml Sdv IVPUSH 03/15/21 05:56 15 mg Q6H ONE Administration Ketorolac Tromethamine Confirm 03/15/21 05:56 03/15/21 06:02 Ketorolac 15 Mg/Ml Sdv Administered 03/15/21 05:57 Not Given Dose 15 mg .ROUTE .STK-MED ONE Misoprostol 800 mcg 03/15/21 05:45 03/15/21 06:04 Misoprostol 200 Mcg Tab PO 800 mcg BID ORTEGA Administration Sodium Chloride 10 ml 03/15/21 03:28 Sodium Chloride 0.9% 10 Ml Syringe FLUSH ASDIRECTED PRN Keep Vein Open Sodium Chloride 2.5 ml 03/15/21 03:28 Sodium Chloride 0.9% 2.5 Ml Syringe FLUSH ASDIRECTED PRN Keep Vein Open - Re-Assessments/Exams Free Text/Narrative Re-Assessment/Exam: 03/15/21 05:08 Ultrasound findings discussed with the patient. Will discuss with GOVERNOR ASSEMBLER HYDRAULIC on- call for [facility]. Patient does report that she is having ongoing cramping that was worsened after pelvic exam and ultrasound. 03/15/21 05:17 Case discussed with MARIA INES Contreras color television console monitor for [facility]. She will review the ultrasound and call me back. The patient is A negative blood type. She did receive RhoGam on March 08 at the time of the D&C. This was discussed with GOVERNOR ASSEMBLER HYDRAULIC on-call, who reports no additional RhoGam necessary at this time. 03/15/21 05:46 Dr. Smith called back. She reviewed the ultrasound images. She does not suspect uterine rupture or dehiscence. She reports the images appear consistent with post D&C state and clots as per the patient's examination. She recommends Cytotec 800 mg p.o. once here, given the patient's degree of bleeding and clot passage. They will see her in the office tomorrow. 03/15/21 05:56 GOVERNOR ASSEMBLER [employer]DRAUL[employer] recommendations discussed with the patient. Discussed their recommendati on for outpatient follow-up as well as p.o. Cytotec. She is in agreement with this plan. However she is still having cramping especially after the ultrasound that has not comes down although it did initially improve with the first dose of Toradol. Therefore she is requesting additional pain medications for symptom relief. Discussed additional Toradol dose and 1000 mg of Tylenol. The patient is in agreement with this plan. Discussed return instructions as well. Departure - Departure Time of Disposition: 05:58 Disposition: Home, Self-Care 01 Clinical Impression: Vaginal bleeding, S/P dilatation and curettage - Discharge Information Instructions: Dilation and Curettage or Vacuum Curettage, Care After, [id number], Abnormal Uterine Bleeding, [id number] Referrals: Adelia Clarke NP [Primary Care Provider] - Shani Conner MD [Physician] - 1 Day Forms: ED Department Discharge Additional Instructions: Please follow-up with your GOVERNOR ASSEMBLER HYDRAULIC at the [facility] acute hospital as soon as possible. If you do not hear from the office by this afternoon, please call them and tell them you were seen in the emergency department need to be seen in follow-up and have a repeat ultrasound. Please take ibuprofen 600 mg every 8 hours and Tylenol 500 to 1000 mg every 8 hours offset by 4 hours from the ibuprofen. Drink plenty of fluids and get plenty rest. Return to the ER if you develop any severe worsening pain, or any worsening bleeding or you feel lightheaded, pass out, develop a fever or have any other concerning symptoms. The following information is given to patients seen in the emergency department who are being discharged to home. This information is to outline your options for follow-up care. We provide all patients seen in our emergency department with a follow-up referral. The need for follow-up, as well as the timing and circumstances, are variable depending upon the specifics of your emergency department visit. If you don't have a primary care physician on staff, we will provide you with a referral. We always advise you to contact your personal physician following an emergency department visit to inform them of the circumstance of the visit and for follow-up with them and/or the need for any referrals to a consulting specialist. The emergency department will also refer you to a specialist when appropriate. This referral assures that you have the opportunity for follow-up care with a specialist. All of these measure are taken in an effort to provide you with optimal care, which includes your follow-up. Under all circumstances we always encourage you to contact your private physician who remains a resource for coordinating your care. When calling for follow-up care, please make the office aware that this follow-up is from your recent emergency room visit. If for any reason you are refused follow-up, please contact the [facility] Emergency Department at and asked to speak to the emergency department charge nurse. Sepsis Event Note (ED) - Evaluation Sepsis Screening Result: No Definite Risk - Focused Exam Vital Signs: Vital Signs Temp Pulse Resp BP Pulse Ox 03/15/21 06:15 97.7 F 62 18 130/87 97 03/15/21 05:15 60 18 129/73 97 03/15/21 03:25 97.8 F 64 18 143/89 H 97 - My Orders Last 24 Hours: My Active Orders 03/15/21 03:28 Saline Lock Insert [OM.PC] Stat - Assessment/Plan Last 24 Hours: My Active Orders 03/15/21 03:28 Saline Lock Insert [OM.PC] Stat
[2021-03-15 04:19] LABS: BLOOD UREA NITROGEN,BUN 16 mg/dL (7.0-18.0); CARBON DIOXIDE,CO2 27.7 mmol/L (21.0-32.0); CHLORIDE,CL 103 mmol/L (98-107); GLUCOSE RANDOM 117 mg/dL (74-106); POTASSIUM,K 4.6 mmol/L (3.5-5.1); SODIUM,NA 140 mmol/L (136-145)
--- NOTE | 2021-03-15 05:08 | US ---
INDICATION: Dilatation and curettage 03-08-2021, now heavy bleeding with clots TECHNIQUE: Ultrasound pelvis transabdominal and transvaginal. Endovaginal imaging was performed to better visualize the endometrium and ovaries. Real-time gomez scale sonographic images with spectral and color Doppler imaging of the ovaries were obtained. COMPARISON: None FINDINGS: Uterus: 9.4 x 6 x 5.5 cm. There is irregular hypoechoic fluid present within the central uterus. On endovaginal scanning, the fluid has not irregular margin with the myometrium and may be located posterior to the echogenic endometrial complex that measures 2.5 cm. There is irregular thinning of the myometrium along the posterior fundus. Normal echotexture of the myometrium noted with no masses are seen. Endometrium: The endometrial complex appears to be located anterior to this fluid collection measuring 2.5 cm. Right ovary: 2 x 1.3 x 2.4 cm. The right ovary is normal in appearance and echotexture. No Doppler examination of the right ovary submitted. Left ovary: 2 x 2.1 x 2.4 cm. The left ovary is normal in appearance and echotexture. Arterial blood flow seen within the left ovary. Cul-de-sac: No significant ascites noted. IMPRESSIONS: 1. There is complex fluid within the uterus with an irregular margin and possible extension into the myometrium is concerning for myometrial injury and dehiscence. 2. The endometrial complex appears to be located anterior to this fluid collection measuring 2.5 cm. Retained products of conception cannot be entirely excluded. Dictated by Chris Roper MD @ 03/15/2021 5:07:34 AM Dictated by: Chris Roper MD @ 03/15/2021 05:07:43 (Electronically Signed)
[2021-03-15] MEDS ORDERED: Misoprostol 200 MCG Tab PO SCH (05:45)
[2021-03-15] MEDS ORDERED: Acetaminophen 500 MG Tab PO ONE (05:54)
[2021-03-15] MEDS ORDERED: Ketorolac 15 MG/ML SDV ONE (05:56)
[2021-03-15 06:22] VITALS: BP 130/87; PULSE 62
== END 2021-03-15 06:18 | disposition home or self-care (01) ==
LOC: MW.ED 03:17
DX: O03.9 Complete or unspecified spontaneous abortion without complication (principal); N93.9 Abnormal uterine and vaginal bleeding, unspecified; Z88.6 Allergy status to analgesic agent; E66.9 Obesity, unspecified; Z87.59 Personal history of other complications of pregnancy, childbirth and the puerperium
CPT/HCPCS: 36415; 76830; 80053; 81001; 84702; 85025; 86900; 86901; 96374; 96376; 99284; A9270; J1885; J7030

== ENCOUNTER 2022-04-21 00:08 | Emergency (ER) | payer BC, OTHER ==
[2022-04-21] MEDS ORDERED: Morphine 4 MG/ML VIAL IVPUSH ONE (00:23)
[2022-04-21] MEDS ORDERED: Ondansetron 4 MG/2 ML SDV IVPUSH ONE (00:23)
[2022-04-21] MEDS ORDERED: Sodium Chloride 0.9% 1,000 ML IV ONE (00:23)
[2022-04-21] MEDS ORDERED: Ketorolac 30 MG/ML SDV IVPUSH ONE (00:23)
[2022-04-21 01:11] LABS: POTASSIUM,K 3.5 mmol/L (3.5-5.1)
[2022-04-21] MEDS ORDERED: Iopamidol 755 MG/ML 500 ML Multipack Bottle IVPUSH ONE (01:23)
[2022-04-21 02:31] VITALS: BP 112/76; PULSE 80
== END 2022-04-21 02:35 | disposition home or self-care (01) ==
LOC: MW.ED 00:08
DX: R10.2 Pelvic and perineal pain (principal); I10 Essential (primary) hypertension; K21.9 Gastro-esophageal reflux disease without esophagitis; E66.9 Obesity, unspecified; Z68.41 Body mass index [BMI] 40.0-44.9, adult; Z88.8 Allergy status to other drugs, medicaments and biological substances
CPT/HCPCS: 36415; 74177; 80053; 81001; 84703; 85025; 96374; 96375; 99284; J1885; J2270; J2405; J7030; Q9967

== ENCOUNTER 2024-11-16 05:00 | Inpatient (IN) | payer OTHER ==
[2024-11-16 06:09] LABS: BASOPHILS ABSOLUTE AUTO 0.03 K/uL (0.00-0.20); BASOPHILS PERCENT AUTO 0.3 % (0.0-1.0); EOSINOPHILS ABSOLUTE AUTO 0.17 K/uL (0.00-0.45); EOSINOPHILS PERCENT AUTO 1.8 % (0.0-6.0); HEMATOCRIT 38.7 % (37.0-47.0); HEMOGLOBIN 13.2 g/dL (12.0-16.0); IMMATURE GRAN ABSOLUTE AUTO 0.04 K/uL (0.00-0.05); IMMATURE GRAN PERCENT AUTO 0.4 % (0.0-0.4); LYMPHOCYTES ABSOLUTE AUTO 2.22 K/uL (1.00-4.80); LYMPHOCYTES PERCENT AUTO 23.5 % (24.0-44.0); MEAN CORPUSCULAR HEMOGLOBIN 29.5 pg (28.0-32.0); MEAN CORPUSCULAR HGB CONC 34.1 g/dL (32.0-36.0); MEAN CORPUSCULAR VOLUME 86.4 fL (83.0-99.0); MEAN PLATELET VOLUME 9.3 fL (9.4-12.3); MONOCYTES ABSOLUTE AUTO 0.72 K/uL (0.00-0.80); MONOCYTES PERCENT AUTO 7.6 % (0.0-8.0); NEUTROPHILS ABSOLUTE AUTO 6.25 K/uL (1.80-7.70); NEUTROPHILS PERCENT AUTO 66.4 % (41.0-71.0); PLATELET COUNT,PLT 325 K/uL (150-400); RED BLOOD CELL COUNT 4.48 M/uL (4.10-5.30); WHITE BLOOD CELL COUNT,WBC 9.43 K/uL (3.9-11.3)
[2024-11-16 06:12] LABS: APPEARANCE,URINE SLT CLOUDY; BILIRUBIN,URINE NEGATIVE (NEGATIVE); COLOR,URINE YELLOW; GLUCOSE,URINE NEGATIVE (NEGATIVE); KETONES,URINE NEGATIVE (NEGATIVE); LEUKOCYTE ESTERASE,URINE SMALL (NEGATIVE); NITRITE,URINE NEGATIVE (NEGATIVE); OCCULT BLOOD,URINE LARGE (NEGATIVE); PH,URINE 5.5 (5.0-8.0); PROTEIN,URINE NEGATIVE (NEGATIVE); UROBILINOGEN,URINE 0.2 EU/dL (<2.0)
[2024-11-16 06:41] LABS: A/G RATIO 0.9 (0.9-1.6); ALANINE AMINOTRANSFERASE,ALT 30 IU/L (14-63); ALBUMIN 3.1 g/dL (3.4-5.0); ALKALINE PHOSPHATASE 37 U/L (46-116); ASPARTATE AMNIOTRANSFERASE,AST 17 IU/L (15-37); BILIRUBIN TOTAL 0.4 mg/dL (0.2-1.0); BLOOD UREA NITROGEN,BUN 7 mg/dL (7.0-18.0); CALCIUM 8.9 mg/dL (8.5-10.1); CARBON DIOXIDE,CO2 20.6 mmol/L (21.0-32.0); CHLORIDE,CL 103 mmol/L (98-107); CREATININE 0.7 mg/dL (0.6-1.0); GLUCOSE RANDOM 100 mg/dL (74-106); LIPASE 35 U/L (16-77); POTASSIUM,K 3.5 mmol/L (3.5-5.1); PROTEIN TOTAL,TP 6.5 g/dL (6.4-8.2); SODIUM,NA 137 mmol/L (136-145)
[2024-11-16 06:44] LABS: ESTIMATED GFR 117 mL/min (>60)
[2024-11-16] MEDS: Metoclopramide 10 MG/2 ML SDV IVPUSH ONE (06:48)
[2024-11-16 06:54] LABS: BACTERIA,URINE 3+ (NEGATIVE); EPITHELIAL CELLS,URINE MANY (NONE-FEW); RBC,URINE 20-30 (0-2/HPF)
[2024-11-16] MEDS: Sodium Chloride 0.9% 1,000 ML IV ONE (07:35)
[2024-11-16 07:43] LABS: APPEARANCE,URINE CLOUDY; BILIRUBIN,URINE NEGATIVE (NEGATIVE); COLOR,URINE YELLOW; GLUCOSE,URINE NEGATIVE (NEGATIVE); KETONES,URINE TRACE mg/dL (NEGATIVE); LEUKOCYTE ESTERASE,URINE TRACE (NEGATIVE); NITRITE,URINE NEGATIVE (NEGATIVE); OCCULT BLOOD,URINE LARGE (NEGATIVE); PH,URINE 5.5 (5.0-8.0); PROTEIN,URINE 30 mg/dL (NEGATIVE); UROBILINOGEN,URINE 0.2 EU/dL (<2.0)
[2024-11-16 07:56] LABS: BACTERIA,URINE 1+ (NEGATIVE); EPITHELIAL CELLS,URINE MANY (NONE-FEW); RBC,URINE 80-90 (0-2/HPF)
[2024-11-16] MEDS ORDERED: Naloxone 0.4 MG/ML SDV IVPUSH PRN (10:08)
[2024-11-16] MEDS: Ondansetron 4 MG/2 ML SDV IVPUSH ONE (10:54)
[2024-11-16] MEDS: Morphine 2 MG/ML SYRINGE IVPUSH ONE (10:54)
[2024-11-16] MEDS: Acetaminophen 325 MG Tab PO ONE (10:54)
[2024-11-16] MEDS: cefTRIAXone 1 GM in Sodium Chloride 0.9% 50 ML IV ONE (10:55)
[2024-11-16] MEDS: Sodium Chloride 0.9% 1,000 ML IV SCH (14:08)
[2024-11-16] MEDS: Promethazine 25 MG/ML SDV IM PRN (14:08)
[2024-11-16] MEDS: Morphine 2 MG/ML SYRINGE IVPUSH PRN (14:09)
[2024-11-16] MEDS: Ondansetron 4 MG/2 ML SDV IVPUSH PRN (16:31)
[2024-11-17 06:01] LABS: BASOPHILS ABSOLUTE AUTO 0.02 K/uL (0.00-0.20); BASOPHILS PERCENT AUTO 0.1 % (0.0-1.0); HEMATOCRIT 33.1 % (37.0-47.0); HEMOGLOBIN 11.5 g/dL (12.0-16.0); IMMATURE GRAN ABSOLUTE AUTO 0.06 K/uL (0.00-0.05); IMMATURE GRAN PERCENT AUTO 0.4 % (0.0-0.4); LYMPHOCYTES ABSOLUTE AUTO 1.44 K/uL (1.00-4.80); LYMPHOCYTES PERCENT AUTO 9.5 % (24.0-44.0); MEAN CORPUSCULAR HEMOGLOBIN 30.1 pg (28.0-32.0); MEAN CORPUSCULAR HGB CONC 34.7 g/dL (32.0-36.0); MEAN CORPUSCULAR VOLUME 86.6 fL (83.0-99.0); MEAN PLATELET VOLUME 9.6 fL (9.4-12.3); MONOCYTES ABSOLUTE AUTO 1.34 K/uL (0.00-0.80); MONOCYTES PERCENT AUTO 8.8 % (0.0-8.0); NEUTROPHILS ABSOLUTE AUTO 12.32 K/uL (1.80-7.70); NEUTROPHILS PERCENT AUTO 81.2 % (41.0-71.0); PLATELET COUNT,PLT 298 K/uL (150-400); RED BLOOD CELL COUNT 3.82 M/uL (4.10-5.30); WHITE BLOOD CELL COUNT,WBC 15.18 K/uL (3.9-11.3)
[2024-11-17 06:20] LABS: BLOOD UREA NITROGEN,BUN 8 mg/dL (7.0-18.0); CALCIUM 7.9 mg/dL (8.5-10.1); CARBON DIOXIDE,CO2 20.6 mmol/L (21.0-32.0); CHLORIDE,CL 105 mmol/L (98-107); GLUCOSE RANDOM 128 mg/dL (74-106); POTASSIUM,K 3.7 mmol/L (3.5-5.1); SODIUM,NA 137 mmol/L (136-145)
[2024-11-17 06:29] LABS: ESTIMATED GFR 76 mL/min (>60)
[2024-11-17] MEDS: cefTRIAXone 1 GM in Sodium Chloride 0.9% 50 ML IV SCH (10:37)
[2024-11-17 13:26] LABS: APPEARANCE,URINE CLOUDY; BILIRUBIN,URINE NEGATIVE (NEGATIVE); COLOR,URINE YELLOW; GLUCOSE,URINE NEGATIVE (NEGATIVE); KETONES,URINE >=80 mg/dL (NEGATIVE); LEUKOCYTE ESTERASE,URINE TRACE (NEGATIVE); NITRITE,URINE NEGATIVE (NEGATIVE); OCCULT BLOOD,URINE MODERATE (NEGATIVE); PH,URINE 5.5 (5.0-8.0); PROTEIN,URINE NEGATIVE (NEGATIVE); UROBILINOGEN,URINE 0.2 EU/dL (<2.0)
[2024-11-17 13:49] LABS: BACTERIA,URINE 2+ (NEGATIVE); EPITHELIAL CELLS,URINE MANY (NONE-FEW)
[2024-11-17] MEDS: Calcium Carbonate 500 MG Tab.Chew PO PRN (19:16)
[2024-11-18 10:18] LABS: BASOPHILS ABSOLUTE AUTO 0.03 K/uL (0.00-0.20); BASOPHILS PERCENT AUTO 0.3 % (0.0-1.0); HEMATOCRIT 34.1 % (37.0-47.0); HEMOGLOBIN 11.8 g/dL (12.0-16.0); IMMATURE GRAN ABSOLUTE AUTO 0.07 K/uL (0.00-0.05); IMMATURE GRAN PERCENT AUTO 0.6 % (0.0-0.4); LYMPHOCYTES ABSOLUTE AUTO 1.19 K/uL (1.00-4.80); LYMPHOCYTES PERCENT AUTO 10.2 % (24.0-44.0); MEAN CORPUSCULAR HEMOGLOBIN 30.4 pg (28.0-32.0); MEAN CORPUSCULAR HGB CONC 34.6 g/dL (32.0-36.0); MEAN CORPUSCULAR VOLUME 87.9 fL (83.0-99.0); MEAN PLATELET VOLUME 9.3 fL (9.4-12.3); MONOCYTES ABSOLUTE AUTO 0.78 K/uL (0.00-0.80); MONOCYTES PERCENT AUTO 6.7 % (0.0-8.0); NEUTROPHILS PERCENT AUTO 82.2 % (41.0-71.0); PLATELET COUNT,PLT 292 K/uL (150-400); RED BLOOD CELL COUNT 3.88 M/uL (4.10-5.30); WHITE BLOOD CELL COUNT,WBC 11.67 K/uL (3.9-11.3)
[2024-11-18 10:44] LABS: BLOOD UREA NITROGEN,BUN 5 mg/dL (7.0-18.0); CALCIUM 8.5 mg/dL (8.5-10.1); CARBON DIOXIDE,CO2 23.7 mmol/L (21.0-32.0); CHLORIDE,CL 103 mmol/L (98-107); CREATININE 0.7 mg/dL (0.6-1.0); GLUCOSE RANDOM 114 mg/dL (74-106); POTASSIUM,K 3.3 mmol/L (3.5-5.1); SODIUM,NA 138 mmol/L (136-145)
[2024-11-18 10:48] LABS: ESTIMATED GFR 117 mL/min (>60)
[2024-11-18] MEDS: Acetaminophen 325 MG Tab PO PRN (10:54)
[2024-11-18] MEDS: NS with KCl 40mEq 1,000 ML IV SCH (17:02)
[2024-11-19 06:49] LABS: BASOPHILS ABSOLUTE AUTO 0.02 K/uL (0.00-0.20); BASOPHILS PERCENT AUTO 0.2 % (0.0-1.0); EOSINOPHILS ABSOLUTE AUTO 0.01 K/uL (0.00-0.45); EOSINOPHILS PERCENT AUTO 0.1 % (0.0-6.0); HEMATOCRIT 32.7 % (37.0-47.0); HEMOGLOBIN 11.2 g/dL (12.0-16.0); IMMATURE GRAN ABSOLUTE AUTO 0.04 K/uL (0.00-0.05); IMMATURE GRAN PERCENT AUTO 0.4 % (0.0-0.4); LYMPHOCYTES ABSOLUTE AUTO 1.49 K/uL (1.00-4.80); LYMPHOCYTES PERCENT AUTO 15.7 % (24.0-44.0); MEAN CORPUSCULAR HEMOGLOBIN 29.9 pg (28.0-32.0); MEAN CORPUSCULAR HGB CONC 34.3 g/dL (32.0-36.0); MEAN CORPUSCULAR VOLUME 87.4 fL (83.0-99.0); MEAN PLATELET VOLUME 9.3 fL (9.4-12.3); MONOCYTES ABSOLUTE AUTO 0.66 K/uL (0.00-0.80); MONOCYTES PERCENT AUTO 6.9 % (0.0-8.0); NEUTROPHILS ABSOLUTE AUTO 7.29 K/uL (1.80-7.70); NEUTROPHILS PERCENT AUTO 76.7 % (41.0-71.0); PLATELET COUNT,PLT 280 K/uL (150-400); RED BLOOD CELL COUNT 3.74 M/uL (4.10-5.30); WHITE BLOOD CELL COUNT,WBC 9.51 K/uL (3.9-11.3)
[2024-11-19 07:09] LABS: CALCIUM 8.8 mg/dL (8.5-10.1); CARBON DIOXIDE,CO2 23.5 mmol/L (21.0-32.0); CREATININE 0.5 mg/dL (0.6-1.0); EST CRCL DRUG DOSING (CG) 126.57 mL/min; POTASSIUM,K 3.1 mmol/L (3.5-5.1)
[2024-11-19] MEDS: Potassium Chloride 10 MEQ in Premix Bag 1 BAG IV SCH (10:44)
[2024-11-19] MEDS: Potassium Chloride 20 MEQ Tab.ER PO ONE (11:28)
[2024-11-19 11:38] VITALS: BP 143/75; PULSE 65
== END 2024-11-19 15:30 | disposition home or self-care (01) | DRG 832 ==
LOC: MW.ED 05:00 → MW.MS 10:40 → OBSVTOIN 11-17 17:09 → MW.MS 11-17 23:18
PROVIDERS: ADMIT Internal Medicine; ATTEND Internal Medicine
DX: O99.891 Other specified diseases and conditions complicating pregnancy (principal); O10.912 Unspecified pre-existing hypertension complicating pregnancy, second trimester; O98.812 Other maternal infectious and parasitic diseases complicating pregnancy, second trimester; N20.0 Calculus of kidney; O99.342 Other mental disorders complicating pregnancy, second trimester; F41.9 Anxiety disorder, unspecified; O99.612 Diseases of the digestive system complicating pregnancy, second trimester; K21.9 Gastro-esophageal reflux disease without esophagitis; F32.A Depression, unspecified; O99.512 Diseases of the respiratory system complicating pregnancy, second trimester; J45.909 Unspecified asthma, uncomplicated; O99.352 Diseases of the nervous system complicating pregnancy, second trimester; G43.909 Migraine, unspecified, not intractable, without status migrainosus; O99.212 Obesity complicating pregnancy, second trimester; B95.1 Streptococcus, group B, as the cause of diseases classified elsewhere; Z3A.17 17 weeks gestation of pregnancy; Z79.82 Long term (current) use of aspirin; Z88.8 Allergy status to other drugs, medicaments and biological substances; Z79.899 Other long term (current) drug therapy; Z87.81 Personal history of (healed) traumatic fracture; Z90.89 Acquired absence of other organs; Z98.890 Other specified postprocedural states; Z90.49 Acquired absence of other specified parts of digestive tract
CPT/HCPCS: 36415; 76775; 76775-26; 76817; 76817-26; 80048; 80053; 81001; 82365; 83690; 84702; 85025; 86900; 86901; 87086; 96361; 96365; 96372; 96375; 96376; 99285; 99285-25; A9270-GY; G0378; J0696; J2270; J2405; J2550; J2765; J3480; J7030

== ENCOUNTER 2024-11-19 22:09 | Emergency (ER) | payer OTHER ==
[2024-11-20] MEDS ORDERED: Sodium Chloride 0.9% 2.5 ML Syringe FLUSH PRN (00:20)
[2024-11-20] MEDS ORDERED: Sodium Chloride 0.9% 20 ML SDV IV PRN (00:20)
[2024-11-20] MEDS ORDERED: Sodium Chloride 0.9% 10 ML Syringe FLUSH PRN (00:20)
[2024-11-20 00:26] LABS: BASOPHILS ABSOLUTE AUTO 0.03 K/uL (0.00-0.20); BASOPHILS PERCENT AUTO 0.2 % (0.0-1.0); EOSINOPHILS ABSOLUTE AUTO 0.02 K/uL (0.00-0.45); EOSINOPHILS PERCENT AUTO 0.1 % (0.0-6.0); HEMATOCRIT 35.6 % (37.0-47.0); HEMOGLOBIN 12.6 g/dL (12.0-16.0); IMMATURE GRAN ABSOLUTE AUTO 0.09 K/uL (0.00-0.05); IMMATURE GRAN PERCENT AUTO 0.6 % (0.0-0.4); LYMPHOCYTES ABSOLUTE AUTO 1.79 K/uL (1.00-4.80); LYMPHOCYTES PERCENT AUTO 12.7 % (24.0-44.0); MEAN CORPUSCULAR HEMOGLOBIN 30.3 pg (28.0-32.0); MEAN CORPUSCULAR HGB CONC 35.4 g/dL (32.0-36.0); MEAN CORPUSCULAR VOLUME 85.6 fL (83.0-99.0); MEAN PLATELET VOLUME 9.5 fL (9.4-12.3); MONOCYTES ABSOLUTE AUTO 0.95 K/uL (0.00-0.80); MONOCYTES PERCENT AUTO 6.7 % (0.0-8.0); NEUTROPHILS PERCENT AUTO 79.7 % (41.0-71.0); PLATELET COUNT,PLT 325 K/uL (150-400); RED BLOOD CELL COUNT 4.16 M/uL (4.10-5.30); WHITE BLOOD CELL COUNT,WBC 14.08 K/uL (3.9-11.3)
[2024-11-20] MEDS: Acetaminophen 325 MG Tab PO ONE (00:38)
[2024-11-20] MEDS: Sodium Chloride 0.9% 1,000 ML IV ONE (00:38)
[2024-11-20 00:41] LABS: A/G RATIO 0.8 (0.9-1.6); ALBUMIN 2.8 g/dL (3.4-5.0); BILIRUBIN TOTAL 0.7 mg/dL (0.2-1.0); CALCIUM 9.8 mg/dL (8.5-10.1); CARBON DIOXIDE,CO2 25.6 mmol/L (21.0-32.0); CREATININE 0.7 mg/dL (0.6-1.0); EST CRCL DRUG DOSING (CG) 90.41 mL/min; POTASSIUM,K 3.3 mmol/L (3.5-5.1); PROTEIN TOTAL,TP 6.4 g/dL (6.4-8.2)
[2024-11-20 01:38] LABS: APPEARANCE,URINE CLEAR; BILIRUBIN,URINE NEGATIVE (NEGATIVE); GLUCOSE,URINE NEGATIVE (NEGATIVE); KETONES,URINE >=80 mg/dL (NEGATIVE); LEUKOCYTE ESTERASE,URINE NEGATIVE (NEGATIVE); NITRITE,URINE NEGATIVE (NEGATIVE); OCCULT BLOOD,URINE MODERATE (NEGATIVE); PH,URINE 5.5 (5.0-8.0); PROTEIN,URINE NEGATIVE (NEGATIVE); UROBILINOGEN,URINE 0.2 EU/dL (<2.0)
[2024-11-20 01:46] LABS: BACTERIA,URINE FEW (NEGATIVE); COLOR,URINE DARK YELLOW; EPITHELIAL CELLS,URINE FEW (NONE-FEW); WBC,URINE 0-2 (0-5/HPF)
[2024-11-20 03:12] VITALS: BP 166/99; PULSE 76
== END 2024-11-20 03:12 | disposition home or self-care (01) ==
LOC: MW.ED 22:09
DX: O99.891 Other specified diseases and conditions complicating pregnancy (principal); R10.9 Unspecified abdominal pain; O10.012 Pre-existing essential hypertension complicating pregnancy, second trimester; O99.612 Diseases of the digestive system complicating pregnancy, second trimester; K21.9 Gastro-esophageal reflux disease without esophagitis; Z79.899 Other long term (current) drug therapy; Z3A.17 17 weeks gestation of pregnancy; Z75.8 Other problems related to medical facilities and other health care; Z79.82 Long term (current) use of aspirin
CPT/HCPCS: 36415; 76775; 80053; 81001; 83690; 85025; 96360; 99284; A9270; J7030